=== PATIENT | male | born 1935 | race Caucasian/White ===

== ENCOUNTER 2017-10-07 12:57 | Inpatient (IN) ==
[2017-10-07 13:55] LABS: Basophils # (Auto) 0 K/mcL (0.0-0.3); Basophils % (Auto) 0.2 % (0.0-2.0); Eosinophils # (Auto) 0.1 K/mcL (0.0-0.7); Eosinophils % (Auto) 0.4 % (0.0-7.0); Granulocytes % (Auto) 90.9 % (38.0-78.0); Lymphocytes # (Auto) 0.5 K/mcL (1.5-4.8); Lymphocytes % (Auto) 2.5 % (15.5-49.0); Mean Cell Volume 94.6 fL (80.0-100.0); Mean Corpuscular HGB Conc 32.6 g/dL (31.0-36.0); Mean Corpuscular Hemoglobin 30.9 pg (26.0-34.0); Monocytes # (Auto) 1.3 K/mcL (0.1-0.9); Platelet Count 311 K/mcL (140-440); RBC 3.71 M/mcL (4.50-5.90); Red Cell Distribution Width 15.5 % (11.5-14.5)
--- NOTE | 2017-10-07 14:02 | XRay Report ---
HISTORY: Reason for Exam:dyspnea fever and cough FINDINGS: There is a large alveolar infiltrate throughout the right lung with the greatest consolidation in the basilar segments. Mildly prominent increased interstitial lung markings are seen in the left lung. The heart is severely enlarged. The pulmonary vessels, best seen in the left lung are normal in caliber. There may be a right-sided pleural effusion. The right lower lobe was densely consolidated on 03/13/17 but the alveolar infiltrates seen in the upper two thirds of the right lung on the current exam was not present previously. The heart is larger today than it was previously. IMPRESSION: Severe pneumonia in the right lung Severe cardiomegaly Interpreted and Authenticated by: Sunny Benítez 10/07/17
[2017-10-07 14:20] LABS: ALT/SGPT 6 U/l (0-40); Albumin 3.5 gm/dL (3.2-5.2); Albumin/Globulin Ratio 0.7 (1.0-2.3); Alkaline Phosphatase 105 U/L (39-117); Blood Urea Nitrogen 35 mg/dl (8-23)
[2017-10-07] MEDS ORDERED: AZITHROMYCIN 500 MG in DEXTROSE 5% IN WATER 250 ML IV ONE (14:27)
[2017-10-07] MEDS ORDERED: LEVOFLOXACIN 500 MG/100 ML BAG IV ONE (14:32)
--- NOTE | 2017-10-07 14:46 | Emergency Department Note ---
SOB HPI - General Chief Complaint: Shortness of Breath/Dyspnea Stated Complaint: Cough, Fever, weakness Time Seen by Provider: 10/07/17 13:08 Source: patient, family Mode of arrival: wheelchair Limitations: no limitations - History of Present Illness 82-year-old male presents with shortness of breath. The patient denies any shortness of breath or chest pain. The family states he has had a fever for 2- 3 days and is breathing faster than he should be and appears to be short of breath. Patient states he feels fine. Denies nausea, vomiting, or diarrhea. Family does report decreased appetite over the last few days and decreased energy level. The patient denies difficulty breathing but is obviously tachypneic. No chest pain or palpitations. No dizziness. No recent travel. No pedal edema. He does report a cough for the last week or so with greenish yellow sputum - Related Data Home Medications Medication Instructions Recorded Confirmed rvlqsqps-[id number] acid 0.4 1 tab PO .QD tab 11/23/15 03/07/17 mg-lycopene 300 mcg-lutein 250 mcg tablet Ferrous Sulfate 65 mg PO ONCE 03/07/17 03/07/17 Warfarin [Coumadin] 4 mg PO .COMPLEX 03/07/17 03/07/17 cloNIDine HCL [Catapres] 0.2 mg PO BID 03/07/17 03/07/17 Previous Rx's Medication Instructions Recorded furosemide 20 mg tablet 20 mg PO QDAY #60 tab 10/26/15 metoprolol succinate ER 50 mg 50 mg PO QDAY #60 tab 10/26/15 tablet,extended release 24 hr aclidinium bromide 400 400 mcg INHALATION BID #120 puff 11/01/15 mcg/actuation breath activated powder inhaler fluticasone 250 mcg-salmeterol 50 1 puff INHALATION BID #120 each 11/01/15 mcg/dose blistr powdr for inhalation lisinopril 5 mg tablet 2.5 mg PO QDAY #60 tab 12/09/15 oxybutynin chloride ER 5 mg 5 mg PO QDAY #60 tab 12/09/15 tablet,extended release 24 hr pravastatin 40 mg tablet 20 mg PO QHS #30 tab 12/09/15 Digoxin [Digitek] 62.5 mcg PO QDAY #30 tab 03/14/17 Ertapenem [Invanz] 1 gm IV Q24H #4 vial 03/14/17 Allergies Allergy/AdvReac Type Severity Reaction Status Date / Time No Known Drug Allergies Allergy Verified 10/07/17 13:01 Review of Systems All systems ED: reviewed and negative except as stated. Past Medical History - Past Medical History [facility] Narrative: Medical History Sepsis (Acute) Pneumonia (Acute) CHF (congestive heart failure) (Acute) Lactic acid acidosis (Acute) Acute kidney injury superimposed on chronic kidney disease (Acute) Chronic Kidney Disease (Chronic) History of ECG (Chronic 10/26/15) Anemia (Acute) Pneumonia (Acute) Septic shock (Acute) Atrial fibrillation (Acute) Diabetes mellitus, type II (Acute) Coronary atherosclerosis (Acute) Pulmonary embolism (Acute) Cardiomyopathy (Acute) TIA (transient ischemic attack) (Acute) Tobacco abuse (Acute) Tachycardia (Acute) Obstructive sleep apnea (Acute) Respiratory failure, chronic (Acute) Respiratory failure (Acute) Pulmonary collapse (Acute) Psychosis (Acute) Pleural effusion (Acute) Peripheral vascular disease (Acute) Paroxysmal supraventricular tachycardia (Acute) Osteoarthritis (Acute) Nocturia (Acute) snf current use of antibiotics (Acute) Hypertension, essential (Acute) Hyperlipidemia (Acute) Finger fracture (Acute) Erectile dysfunction (Acute) Encephalopathy (Acute) Diastolic heart failure (Acute) Congestive heart failure (Acute) Chronic obstructive pulmonary disease (Acute) Cachexia (Acute) Bladder outlet obstruction (Acute) Benign neoplasm (Acute) 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 (Acute) Alcohol withdrawal (Acute) Past Surgical History Status post arthroscopic surgery of right knee (Acute) History of aorto-femoral bypass (Acute) History of skin cancer (Acute) History of intraocular lens implant (Acute) History of tonsillectomy (Acute) History of inguinal hernia repair (Acute) Status post arthroscopic surgery of left knee (Acute) History of lower limb amputation (Acute) History of adenoidectomy (Acute) Medical history: Reports: coronary artery disease, dementia, other (bstructive sleep apnea) Surgical history ED: Reports: other (peripheral vascular bypass) - Social History smoking status: Current every day smoker Alcohol use: Reports: None Drug use: Reports: none Physical Exam Limitations: no limitations General appearance: alert, other (Speaks in full sentences. Mild to moderate tachypnea with a rate of around 35.) Head: atraumatic, normocephalic, normal inspection Eye: Present: normal appearance. Absent: conjunctival injection ENT: normal exam, normal oropharynx, mucous membranes moist, TM's normal bilaterally, normal external ear exam Neck: Present: normal inspection, trachea midline. Absent: tenderness, lymphadenopathy Chest: Present: normal inspection, symmetric chest wall rise Respiratory: Present: respiratory distress (Mild tachypnea.), wheezes (Wheezes to right base, inspiratory and expiratory. Lung sounds slightly diminished bases bilateral). Absent: accessory muscle use Cardiovascular: Present: irregular rhythm (a-fib), normal heart sounds Abdominal: Present: soft, hernia (Right abd). Absent: distention Extremities: Present: normal inspection. Absent: pedal edema Neurological: Present: alert, oriented X3 Psychiatric: Present: normal affect, normal mood Skin: Present: warm, dry, intact, normal color. Absent: rash, cyanosis, diaphoresis, erythema Course Vital Signs Temperature 98.9 F 10/07/17 12:57 Pulse Rate 119 H 10/07/17 12:57 Respiratory Rate 38 H 10/07/17 12:57 Blood Pressure 164/82 10/07/17 12:57 Pulse Oximetry (%) 92 10/07/17 12:57 Temperature 98.9 F 10/07/17 12:57 Pulse Rate 97 H 10/07/17 14:32 Respiratory Rate 31 H 10/07/17 14:32 Blood Pressure 121/93 10/07/17 14:30 Pulse Oximetry (%) 96 10/07/17 14:32 Shortness of Breath/Dyspnea - Lab Data Lab results reviewed: Yes I reviewed the patient's lab results. Result diagrams: 10/07/17 13:25 10/07/17 13:25 Lab Results 10/07/17 10/07/17 10/07/17 Range/Units 13:25 13:25 13:25 WBC 21.5 H (4.5-11.0) K/mcL RBC 3.71 L (4.50-5.90) M/mcL Hgb 11.5 L (13.5-16.5) g/dL Hct 35.1 L (41.0-55.0) % MCV 94.6 (80.0-100.0) fL MCH 30.9 (26.0-34.0) pg MCHC 32.6 (31.0-36.0) g/dL RDW 15.5 H (11.5-14.5) % Plt Count 311 (140-440) K/mcL MPV 8.8 (7.4-10.4) fL Gran % 90.9 H (38.0-78.0) % Lymph % (Auto) 2.5 L (15.5-49.0) % [place] % (Auto) 6.0 (1.0-12.0) % Eos % (Auto) 0.4 (0.0-7.0) % Baso % (Auto) 0.2 (0.0-2.0) % Gran # 19.6 H (1.8-8.0) K/mcL Lymph # (Auto) 0.5 L (1.5-4.8) K/mcL [place] # (Auto) 1.3 H (0.1-0.9) K/mcL Eos # (Auto) 0.1 (0.0-0.7) K/mcL Baso # (Auto) 0 (0.0-0.3) K/mcL D-Dimer 1.18 H (0.00-0.40) ug/ml VBG Lactic Acid (0.5-2.2) mmol/L Sodium 139 (133-145) mmol/L Potassium 4.5 (3.3-5.1) mmol/L Chloride 99 (96-108) mmol/L Carbon Dioxide 22 (22-30) mmol/L Anion Gap 18.0 H (8-16) BUN 35 H (8-23) mg/dl Creatinine 1.8 H (0.7-1.2) mg/dl GFR Calculation 34 Glucose 168 H (70-105) mg/dL Calcium 9.2 (8.6-10.4) mg/dl Total Bilirubin 0.9 (0.0-1.0) mg/dL AST 13 (0-37) U/l ALT 6 (0-40) U/l Alkaline Phosphatase 105 (39-117) U/L Troponin T (0-0.03) ng/ml NT-Pro-B Natriuret Pep 23435.0 H (0-450) pg/ml Total Protein 8.7 H (5.9-8.4) gm/dL Albumin 3.5 (3.2-5.2) gm/dL Globulin 5.2 H (2.2-3.7) gm/dL Albumin/Globulin Ratio 0.7 L (1.0-2.3) 10/07/17 10/07/17 Range/Units 13:25 13:25 WBC (4.5-11.0) K/mcL RBC (4.50-5.90) M/mcL Hgb (13.5-16.5) g/dL Hct (41.0-55.0) % MCV (80.0-100.0) fL MCH (26.0-34.0) pg MCHC (31.0-36.0) g/dL RDW (11.5-14.5) % Plt Count (140-440) K/mcL MPV (7.4-10.4) fL Gran % (38.0-78.0) % Lymph % (Auto) (15.5-49.0) % [place] % (Auto) (1.0-12.0) % Eos % (Auto) (0.0-7.0) % Baso % (Auto) (0.0-2.0) % Gran # (1.8-8.0) K/mcL Lymph # (Auto) (1.5-4.8) K/mcL [place] # (Auto) (0.1-0.9) K/mcL Eos # (Auto) (0.0-0.7) K/mcL Baso # (Auto) (0.0-0.3) K/mcL D-Dimer (0.00-0.40) ug/ml VBG Lactic Acid 2.0 (0.5-2.2) mmol/L Sodium (133-145) mmol/L Potassium (3.3-5.1) mmol/L Chloride (96-108) mmol/L Carbon Dioxide (22-30) mmol/L Anion Gap (8-16) BUN (8-23) mg/dl Creatinine (0.7-1.2) mg/dl GFR Calculation Glucose (70-105) mg/dL Calcium (8.6-10.4) mg/dl Total Bilirubin (0.0-1.0) mg/dL AST (0-37) U/l ALT (0-40) U/l Alkaline Phosphatase (39-117) U/L Troponin T 0.04 H* (0-0.03) ng/ml NT-Pro-B Natriuret Pep (0-450) pg/ml Total Protein (5.9-8.4) gm/dL Albumin (3.2-5.2) gm/dL Globulin (2.2-3.7) gm/dL Albumin/Globulin Ratio (1.0-2.3) - Radiology Data Radiology results reviewed: Yes I reviewed the patient's radiology results. Disposition Pt seen by INCOME TAX MANAGER/PA only: Yes Clinical Impression: Community acquired pneumonia Disposition: [facility] Condition: Fair Referrals: Sunny Nieves ARNP [Primary Care Provider] -
--- NOTE | 2017-10-07 15:24 | Internal Med History&Physical ---
Medical - H&P: HPI Patient information: Note initiated : 10/07/17 at 3:20 pm Patient: Tanvir Rubin 82 y/o M admitted on for Cough, Fever, Weakness. History of present illness: Mr. Rubin is a 82 year old M Mr. Rubin is a 82 year old male with PMH of PE, Afib, cardiomyopathy with CHF, right side pleural effusion, PVD, Chr anemia ,CKD who was seen here in March 2017 for right lower lobe pneumonia. He was reportedly discharged home with instructions for outpatient IV antibiotics, but his son says he refused to follow-up for that. He apparently eventually got better, and was in his usual state of health until a month or so ago, when he started to have a productive cough again. His son says he has been coughing up bloody sputum on and off for about 1 month, though the patient denies this. The patient's children have noticed that he has had increased respiratory rate for several days, and they thought he had a fever, and he seemed much more fatigued than usual, so they insisted he come in for evaluation. I believe the son tried to take him to the [facility] first and they sent him to the emergency room. In the ER, he was noted to be tachypneic with a white blood cell count of 21,000, heart rate of 35, chest x -ray showing diffuse right-sided pneumonia. The patient has known severe CHF as well, and is at high risk for complications. otherwise, the patient is quite forgetful. He denies feeling poorly or having any trouble with his breathing. His son notes that he continues to smoke up to a pack of cigarettes per day. He refuses to use oxygen, and has consistently refused to use inhalers at home. The patient denies headaches or dizziness, new eye or ear symptoms, sore throat, chest pain or palpitations, but he also denies cough and shortness of breath, which his son has witnessed. He denies GI or complaints. Medical History CHF (congestive heart failure) (Acute) Pneumonia (Acute) Sepsis (Acute) Acute kidney injury superimposed on chronic kidney disease (Acute) Alcohol withdrawal (Acute) Anemia (Acute) Atrial fibrillation (Acute) Bladder outlet obstruction (Acute) Chronic obstructive pulmonary disease (Acute) Congestive heart failure (Acute) Coronary atherosclerosis (Acute) Diabetes mellitus, type II (Acute) Encephalopathy (Acute) Hyperlipidemia (Acute) Hypertension, essential (Acute) Obstructive sleep apnea (Acute) Osteoarthritis (Acute) Paroxysmal supraventricular tachycardia (Acute) Peripheral vascular disease (Acute) Pleural effusion (Acute) Psychosis (Acute) Pulmonary embolism (Acute) TIA (transient ischemic attack) (Acute) Tobacco abuse (Acute) 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 (Acute) Chronic Kidney Disease (Chronic) Past Surgical History History of adenoidectomy (Acute),History of aorto-femoral bypass (Acute), History of inguinal hernia repair (Acute),History of intraocular lens implant ( Acute) History of lower limb amputation (Acute),History of skin cancer (Acute),History of tonsillectomy (Acute),Status post arthroscopic surgery of left knee (Acute) Status post arthroscopic surgery of right knee (Acute) Medication List Patient refuses to take: Aclidinium bromide 400 mcg/actuation breath activated powder inhaler 400 mcg clonidine HCl 0.1 mg tablet 0.1 mg PO BID digoxin 125 mcg tablet 125 mcg PO QDAY ferrous sulfate 325 mg (65 mg iron) tablet 65 mg (0.2 x 325 mg (65 mg iron)) PO TID Refuses to take: fluticasone-salmeterol 250 mcg-salmeterol 50 mcg/dose blistr powdr for inhalation 1 puff Inhalation BID furosemide 20 mg tablet 20 mg PO QDAY lisinopril 5 mg tablet 5 mg PO QDAY metoprolol succinate ER 50 mg tablet,extended release 24 hr 50 mg PO QDAY pksneqqk-qww-RV-lycopen-lutein 0.4 mg-lycopene 300 mcg-lutein 250 mcg tablet 1 tab PO .QD oxybutynin chloride ER 5 mg tablet,extended release 24 hr 5 mg PO QDAY pravastatin 40 mg tablet 40 mg PO QHS tamsulosin ER 0.4 mg capsule,extended release 24 hr 0.4 mg PO QDAY warfarin 5 mg tablet Take 6mg Sa, Sun, , , and 5mg on and . Allergies/Adverse Reactions No Known Drug Allergies Allergy (Verified 11/28/15 14:09) Family History mother , 96 Alzheimer's disease Unknown Asthma Essential hypertension Father , 74 Cardiovascular disease Social History The patient lives with his son, who is clearly also a smoker. The patient reportedly smokes up to 1 pack of cigarettes per day. He drinks about 1 beer per day. He does not use drugs. His daughter has his power of senior interactive developer. He states he would like to be a full code. Medical - H&P: Meds Home Medications Medication Instructions Recorded Confirmed Type Ferrous Sulfate 325 mg PO ONCE 03/07/17 10/07/17 History Warfarin [Coumadin] 4 mg PO .COMPLEX 03/07/17 10/07/17 History cloNIDine HCL [Catapres] 0.2 mg PO BID 03/07/17 10/07/17 History Digoxin [Digitek] 62.5 mcg PO QDAY #30 tab 03/14/17 10/07/17 Rx Lisinopril [Zestril] 5 mg PO QDAY 10/07/17 10/07/17 History Oxybutynin Chloride [Ditropan Xl] 5 mg PO TID 10/07/17 10/07/17 History Allergies Allergy/AdvReac Type Severity Reaction Status Date / Time No Known Drug Allergies Allergy Verified 10/07/17 13:01 Medical - H&P: Exam - Constitutional Vitals: Temp Pulse Resp BP Pulse Ox 98.9 F 99 H 26 H 136/87 93 10/07/17 12:57 10/07/17 15:15 10/07/17 15:15 10/07/17 15:15 10/07/17 15:15 Heart rate ranges from 54-119. Respiratory rate ranges from 20-38. O2 saturation is 92-94% on room air. Head: Normocephalic, atraumatic. Ears: TMs and canals are clear. Eyes: PERRLA, EOMI, anicteric. Neck: Appears supple, without obvious JVD, thyromegaly, bruits, lymphadenopathy. Cardiac exam: Shows an irregularly irregular rhythm with a rapid rate. No murmurs, rubs, gallops are noted. Lungs: He has decreased breath sounds at the right base, but otherwise diffuse wheezing and rhonchi throughout all lung lopez. He is quite tachypneic, but is otherwise not really in distress and denies feeling any distress. Abdomen: Is soft and nontender without obvious masses. Extremities: There is a right leg BKA, and he is wearing a prosthesis. Left lower extremity shows no significant edema. Pulses are decreased. Medical - H&P: Reslt - Labs CBC & Chem 7: 10/07/17 13:25 10/07/17 13:25 Labs: Short CBC 10/07/17 Range/Units 13:25 WBC 21.5 H (4.5-11.0) K/mcL Hgb 11.5 L (13.5-16.5) g/dL Hct 35.1 L (41.0-55.0) % Plt Count 311 (140-440) K/mcL BMP 10/07/17 13:25 Sodium 139 Potassium 4.5 Chloride 99 Carbon Dioxide 22 BUN 35 H Creatinine 1.8 H Glucose 168 H Calcium 9.2 Cardiac Enzymes 10/07/17 Range/Units 13:25 Troponin T 0.04 H* (0-0.03) ng/ml Liver Function 10/07/17 Range/Units 13:25 Total Bilirubin 0.9 (0.0-1.0) mg/dL AST 13 (0-37) U/l ALT 6 (0-40) U/l Alkaline Phosphatase 105 (39-117) U/L Albumin 3.5 (3.2-5.2) gm/dL October 07: CBC: White blood cell count is 21,500, hemoglobin 11.5, hematocrit 35, RDW 15. Differential shows 19,600 granulocytes, 500 lymphocytes 1300 monocytes Chemistry panel shows normal electrolytes, anion gap of 18, BUN of 35, creatinine 1.8, glucose 168 (baseline BUN and creatinine appear to be 42 and 1.4 ) ProBNP is elevated at 21,427 Total protein is elevated at 8.7, globulin high at 5.2 Troponin T is elevated at 0.04 Pro time is 25 with an INR of 2.2 D-dimer is elevated at 1.18 next Lactic acid is normal at 2.0 Chest x-ray:FINDINGS: There is a large alveolar infiltrate throughout the right lung with the greatest consolidation in the basilar segments. Mildly prominent increased interstitial lung markings are seen in the left lung. The heart is severely enlarged. The pulmonary vessels, best seen in the left lung are normal in caliber. There may be a right-sided pleural effusion. The right lower lobe was densely consolidated on 03/13/17 but the alveolar infiltrates seen in the upper two thirds of the right lung on the current exam was not present previously. The heart is larger today than it was previously. IMPRESSION: Severe pneumonia in the right lung. Severe cardiomegaly. EKG: Shows atrial fibrillation at a rate of about 120, left axis deviation, LVH , slight T-wave inversions noted in V4 through V6, no significant change from previous EKG. Echocardiogram, March 08, 2017: CONCLUSION: Severe biatrial enlargement. Moderate biventricular enlargement. Moderate to severe hypokinesis, ejection fraction 35%. Moderate pulmonary hypertension. -Mild aortic root dilatation. -Mixed aortic stenosis and aortic regurgitation , the former probably mild to moderate, the latter probably mild (1+). -Mild LV enlargement with moderate segmental systolic dysfunction. (See text). - Mitral regurgitation, probably mild (1+), with severe LA enlargement. -Moderate pulmonary hypertension with mild RV enlargement, severe RA enlargement , and raised CVP. -Since previous study 11/08/2015, right heart pressures calculate elevated. LV ejection fraction appears modestly higher. Medical - H&P: A/P (1) Community acquired pneumonia Current visit: No Status: Acute (2) Acute kidney injury superimposed on chronic kidney disease Current visit: No Status: Acute (3) Atrial fibrillation Problem details: [facility] Current visit: No Status: Chronic (4) CHF (congestive heart failure) Current visit: No Status: Chronic (5) Chronic obstructive pulmonary disease Current visit: No Status: Chronic (6) Diabetes mellitus, type II Current visit: No Status: Chronic (7) Tobacco abuse Problem details: 11/01/14 [facility] Current visit: No Status: Acute - Narrative A/P Narrative: #1. Infectious disease. Patient presents with dyspnea, tachypnea, leukocytosis, and x-ray consistent with right-sided pneumonia involving all lobes of the right lung. This patient is high risk for complications given his underlying severe congestive heart failure, coronary disease, COPD. -Admit to telemetry for close monitoring. -Cover empirically with Zosyn and Zithromax, to cover both community-acquired pneumonia as well as aspiration pneumonia. -Scheduled and as needed bronchodilators. Inhaled steroids. Pulmonary toilet. Oxygen as needed. -Blood and sputum cultures. -Follow-up chest x-rays. -Check baseline ABG. -Pulmonary consult if patient declines. 2. Pulmonary. History of COPD. -Nebulizers and oxygen, as noted above. 3. Cardiac. History of CHF and coronary artery disease. -Monitor volume status closely. Continue digoxin, clonidine, lisinopril, as able. -check digoxin level. Atrial fibrillation, chronic. -Continue warfarin, monitor closely. -The patient is supposed to be on metoprolol at home, his son seems a little unsure of which medicines he is actually taking, but hopefully is on both digoxin and metoprolol as these were prescribed at discharge for his last admission. -hypertension. Continue medications as tolerated. 4. CODE STATUS: Patient states he would like to be a full code. 5. DVT prophylaxis: Continue warfarin. Monitor per pharmacy. 6. Endocrine. Type 2 diabetes. Monitor Accu-Cheks, cover with sliding scale insulin. 7. Reported history of obstructive sleep apnea. It is doubtful that he would wear a CPAP mask, but I will try to confirm with his family. 8. Renal. Patient has known CKD, and presents with slightly elevated creatinine over baseline. I will try very gentle hydration to see if this improves, but we will definitely need to watch for CHF exacerbation. This visit took approximately 60 minutes, to review his case with the ER MD, review his old records and current test results, interview and examine him, and then review history with his son as well, and write orders.
[2017-10-07] MEDS ORDERED: 0.9 % SODIUM CHLORIDE 1,000 ML IV ONE (15:48)
[2017-10-07] MEDS ORDERED: ALBUTEROL SULFATE 2.5 MG/3 ML NEBULIZER NEB PRN (15:54)
[2017-10-07] MEDS ORDERED: PNEUMOCOCCAL 23-VAL P-SAC VAC 0.5 ML VIAL IM ONE (15:54)
[2017-10-07] MEDS ORDERED: DEXTROSE 31 GM ORAL.SUSP PO PRN (15:54)
[2017-10-07] MEDS ORDERED: DOCUSATE SODIUM 100 MG CAPSULE PO PRN (15:54)
[2017-10-07] MEDS ORDERED: DEXTROSE 50% 50 ML VIAL IV PRN (15:54)
[2017-10-07] MEDS ORDERED: ACETAMINOPHEN 325 MG TABLET PO PRN (15:54)
[2017-10-07] MEDS ORDERED: MAGNESIUM HYDROXIDE 30 ML ORAL.SUSP PO PRN (15:54)
[2017-10-07] MEDS ORDERED: ONDANSETRON 4 MG/2 ML VIAL IV PRN (15:54)
[2017-10-07] MEDS: 0.45 % SODIUM CHLORIDE 1,000 ML IV SCH (17:05)
[2017-10-07] MEDS: AZITHROMYCIN 500 MG in DEXTROSE 5% IN WATER 250 ML IV SCH (17:05)
[2017-10-07] MEDS ORDERED: METOPROLOL TARTRATE 5 MG/5 ML VIAL IV PRN (17:21)
[2017-10-07] MEDS ORDERED: METOPROLOL TARTRATE 5 MG/5 ML VIAL IV ONE (17:30)
[2017-10-07] MEDS: INSULIN LISPRO 1 UNIT/0.01 ML UNIT SQ SCH ×2 (17:41→21:03)
[2017-10-07] MEDS: DIGOXIN 125 MCG TABLET PO SCH (18:50)
[2017-10-07] MEDS: BUDESONIDE 0.5 MG/2 ML AMPUL.NEB NEB SCH ×2 (19:09→19:39)
[2017-10-07] MEDS: IPRATROPIUM/ALBUTEROL 3 ML AMPUL.NEB NEB SCH ×2 (19:09→19:39)
[2017-10-07] MEDS: PIPERACILLIN SODIUM/TAZOBACTAM 3.375 GM in DEXTROSE 5% IN WATER 50 ML IV SCH (19:29)
[2017-10-07] MEDS ORDERED: WARFARIN 5 MG TABLET PO SCH (20:00)
[2017-10-07] MEDS: OXYBUTYNIN CHLORIDE 5 MG TAB.XL.24H PO SCH (20:58)
[2017-10-08] MEDS: PIPERACILLIN SODIUM/TAZOBACTAM 3.375 GM in DEXTROSE 5% IN WATER 50 ML IV SCH ×4 (00:05→17:32)
[2017-10-08] MEDS: IPRATROPIUM/ALBUTEROL 3 ML AMPUL.NEB NEB SCH ×4 (00:12→19:13)
[2017-10-08 05:00] LABS: Basophils # (Auto) 0 K/mcL (0.0-0.3); Basophils % (Auto) 0.4 % (0.0-2.0); Eosinophils # (Auto) 0.1 K/mcL (0.0-0.7); Eosinophils % (Auto) 0.6 % (0.0-7.0); Granulocytes % (Auto) 75.1 % (38.0-78.0); Lymphocytes # (Auto) 0.9 K/mcL (1.5-4.8); Lymphocytes % (Auto) 10.1 % (15.5-49.0); Mean Cell Volume 93.7 fL (80.0-100.0); Mean Corpuscular HGB Conc 32.7 g/dL (31.0-36.0); Mean Corpuscular Hemoglobin 30.6 pg (26.0-34.0); Monocytes # (Auto) 1.3 K/mcL (0.1-0.9); Monocytes % (Auto) 13.8 % (1.0-12.0); Platelet Count 211 K/mcL (140-440); RBC 2.66 M/mcL (4.50-5.90); Red Cell Distribution Width 14.6 % (11.5-14.5)
[2017-10-08 05:48] LABS: ALT/SGPT 5 U/l (0-40); Albumin 2.3 gm/dL (3.2-5.2); Albumin/Globulin Ratio 0.7 (1.0-2.3); Alkaline Phosphatase 67 U/L (39-117); Bilirubin,Direct 0.2 mg/dL (0.0-0.3); Blood Urea Nitrogen 29 mg/dl (8-23); Gamma Glutamyl Transpeptidase 10 U/L (8-61); Magnesium 1.3 mg/dL (1.6-2.5); Uric Acid 5.4 mg/dL (2.5-8.0)
[2017-10-08] MEDS: BUDESONIDE 0.5 MG/2 ML AMPUL.NEB NEB SCH ×2 (07:28→19:13)
[2017-10-08] MEDS: INSULIN LISPRO 1 UNIT/0.01 ML UNIT SQ SCH ×4 (07:42→20:45)
[2017-10-08] MEDS ORDERED: POTASSIUM CHLORIDE 20 MEQ TABLET PO ONE (08:06)
[2017-10-08] MEDS ORDERED: guaiFENesin 600 MG TAB.SR.12H PO PRN (08:11)
--- NOTE | 2017-10-08 08:13 | XRay Report ---
HISTORY: Reason for Exam:follow up pneumonia FINDINGS: There is a large generalized infiltrate throughout the right lung. The greatest consolidation is at the lung base. Superimposed is a small right-sided pleural effusion. The consolidation in the mid and upper two thirds of the lung has improved since yesterday. There are stable increased interstitial lung markings throughout the left lung. This is partially due to underlying emphysema and pulmonary fibrosis. The heart remains severely enlarged but has diminished in size. IMPRESSION: Improving pneumonia in the right lung and improved cardiomegaly Interpreted and Authenticated by: Sunny Benítez 10/08/17
[2017-10-08] MEDS: DIGOXIN 125 MCG TABLET PO SCH (09:06)
[2017-10-08] MEDS: FINASTERIDE 5 MG TABLET PO SCH (09:06)
[2017-10-08] MEDS: OXYBUTYNIN CHLORIDE 5 MG TAB.XL.24H PO SCH ×3 (09:06→20:44)
[2017-10-08] MEDS: CETIRIZINE 10 MG TABLET PO SCH (09:08)
[2017-10-08] MEDS: FERROUS SULFATE 325 MG TABLET PO SCH (09:08)
[2017-10-08] MEDS: METOPROLOL TARTRATE 50 MG TABLET PO SCH (09:08)
[2017-10-08] MEDS: cloNIDine HCL 0.1 MG TABLET PO SCH ×2 (09:08→20:45)
[2017-10-08] MEDS: MULTIVIT,THER IRON,CA,FA & MIN 1 TABLET PO SCH (09:08)
[2017-10-08] MEDS: AZITHROMYCIN 500 MG in DEXTROSE 5% IN WATER 250 ML IV SCH (09:43)
--- NOTE | 2017-10-08 11:00 | Internal Med Progress Note ---
Medical - PN: Subj Patient information: Note initiated : 10/08/17 at 10:59 am Service Date, if different from initiated Date: [] Patient: Tanvir Rubin 82 y/o M admitted on 10/07/17 for Cough, Fever, Weakness /Pneumonia. Chief Complaint: [] Interval history: October 07, 2017: History of present illness: Mr. Rubin is a 82 year old M Mr. Rubin is a 82 year old male with PMH of PE, Afib, cardiomyopathy with CHF, right side pleural effusion, PVD, Chr anemia ,CKD who was seen here in March 2017 for right lower lobe pneumonia. He was reportedly discharged home with instructions for outpatient IV antibiotics, but his son says he refused to follow-up for that. He apparently eventually got better, and was in his usual state of health until a month or so ago, when he started to have a productive cough again. His son says he has been coughing up bloody sputum on and off for about 1 month, though the patient denies this. The patient's children have noticed that he has had increased respiratory rate for several days, and they thought he had a fever, and he seemed much more fatigued than usual, so they insisted he come in for evaluation. I believe the son tried to take him to the [facility] first and they sent him to the emergency room. In the ER, he was noted to be tachypneic with a white blood cell count of 21,000, heart rate of 35, chest x -ray showing diffuse right-sided pneumonia. The patient has known severe CHF as well, and is at high risk for complications. otherwise, the patient is quite forgetful. He denies feeling poorly or having any trouble with his breathing. His son notes that he continues to smoke up to a pack of cigarettes per day. He refuses to use oxygen, and has consistently refused to use inhalers at home. The patient denies headaches or dizziness, new eye or ear symptoms, sore throat, chest pain or palpitations, but he also denies cough and shortness of breath, which his son has witnessed. He denies GI or complaints. October 08: Today, the patient says he is feeling better. He continues to deny fever or cough, although the nurses say he is having a cough productive of bloody sputum. His room air O2 saturations have been fine. He denies shortness of breath. Labs today show low sodium, potassium, serum bicarb. Renal function looks somewhat improved after IV fluids. The patient otherwise denies fever chills, headaches or dizziness, chest pain or shortness of breath, abdominal pain, nausea vomiting, diarrhea or constipation, dysuria. - Constitutional Vitals: Vital Signs Temp Pulse Resp BP Pulse Ox 98.4 F 88 16 177/93 97 10/08/17 08:00 10/08/17 08:00 10/08/17 08:00 10/08/17 04:00 10/08/17 08:00 Period Temp Pulse Resp BP Sys/Sherman Pulse Ox Last 24 Hr 98.4 F-100.3 F 54-119 16-38 105-190/72-93 90-98 Intake and Output 10/07/17 10/08/17 10/08/17 21:59 05:59 13:59 Intake Total 1916 / 1916 410 / 410 320 / 320 Output Total 151 / 151 150 / 150 Balance 1766 / 1766 260 / 260 320 / 320 Weight 153 lb Intake & Output: Intake & Output 10/07/17 10/08/17 10/08/17 21:59 05:59 13:59 Intake Total 1916 / 191 410 / 410 320 / 320 Output Total 151 / 151 150 / 150 Balance 1766 / 1766 260 / 260 320 / 320 Weight 153 lb Intake: IV 1377 / 1377 50 / 50 Sodium Chloride 0.9% 1,000 ml @ 1000 / 1000 Wide Open IV [facility] Rx#: [id number] Zithromax 500 mg In Dextrose 5% 250 / 250 in Water 250 ml @ 250 mls/hr IV DAILY [facility] Rx#:[id number] Zosyn 3.375 gm In Dextrose 5% 50 / 50 50 / 50 in Water 50 ml @ 100 mls/hr IV Q6H [facility] Rx#:[id number] Oral 540 / 540 360 / 360 320 / 320 Output: Void Amount 150 / 150 150 / 150 # of times incontinent of urine 1 Other: Meal Breakfast Percent of Meal Consumed 100% Feeding Ability Independent # Bowel Movements 1 1 On exam, he is awake and alert, but remains very forgetful. Neck is supple without obvious lymphadenopathy or JVD. Cardiac exam shows an irregularly irregular rhythm. Lung exam shows decreased breath sounds at the right base and the remainder of the lung lopez are somewhat coarse. Abdomen is soft and nontender. Lower extremities show no edema. Medical - PN: Obj Da - Labs CBC & Chem 7: 10/08/17 03:43 10/08/17 03:43 Labs: Abnormal Lab Results 10/08/17 10/08/17 10/08/17 07:08 03:43 03:43 WBC RBC 2.66 L Hgb 8.2 L Hct 25.0 L RDW 14.6 H Gran % Lymph % (Auto) 10.1 L [place] % (Auto) 13.8 H Gran # Lymph # (Auto) 0.9 L [place] # (Auto) 1.3 H PT 26.0 H INR 2.3 H D-Dimer Sodium 127 L Potassium 3.0 L Carbon Dioxide 19 L Anion Gap BUN 29 H Creatinine 1.4 H Glucose 119 H Calcium 6.4 L Phosphorus 1.5 L Magnesium 1.3 L Troponin T NT-Pro-B Natriuret Pep Total Protein 5.6 L Albumin 2.3 L Globulin Albumin/Globulin Ratio 0.7 L 10/07/17 10/07/17 10/07/17 14:33 13:25 13:25 WBC RBC Hgb Hct RDW Gran % Lymph % (Auto) [place] % (Auto) Gran # Lymph # (Auto) [place] # (Auto) PT 25.3 H INR 2.2 H D-Dimer 1.18 H Sodium Potassium Carbon Dioxide Anion Gap BUN Creatinine Glucose Calcium Phosphorus Magnesium Troponin T 0.04 H* NT-Pro-B Natriuret Pep Total Protein Albumin Globulin Albumin/Globulin Ratio 10/07/17 10/07/17 13:25 13:25 WBC 21.5 H RBC 3.71 L Hgb 11.5 L Hct 35.1 L RDW 15.5 H Gran % 90.9 H Lymph % (Auto) 2.5 L [place] % (Auto) Gran # 19.6 H Lymph # (Auto) 0.5 L [place] # (Auto) 1.3 H PT INR D-Dimer Sodium Potassium Carbon Dioxide Anion Gap 18.0 H BUN 35 H Creatinine 1.8 H Glucose 168 H Calcium Phosphorus Magnesium Troponin T NT-Pro-B Natriuret Pep 41801.0 H Total Protein 8.7 H Albumin Globulin 5.2 H Albumin/Globulin Ratio 0.7 L October 08: Follow-up chest x-ray: There is still a large generalized infiltrate throughout the right lung with greatest consolidation at the base. However the mid and upper lung infiltrates are improved since yesterday. There is probably underlying emphysema and pulmonary fibrosis. The heart remains severely enlarged. October 07: ABG: PH is 7.46, PCO2 34, PO2 80, bicarb 24, O2 saturation 96% (I believe this was on room air) Sputum Gram stain shows many polys, many intra-and extra of pharyngeal organisms. No pathogens isolated so far. CBC: White blood cell count is 21,500, hemoglobin 11.5, hematocrit 35, RDW 15. Differential shows 19,600 granulocytes, 500 lymphocytes 1300 monocytes Chemistry panel shows normal electrolytes, anion gap of 18, BUN of 35, creatinine 1.8, glucose 168 (baseline BUN and creatinine appear to be 42 and 1.4 ) ProBNP is elevated at 21,427 Total protein is elevated at 8.7, globulin high at 5.2 Troponin T is elevated at 0.04 Pro time is 25 with an INR of 2.2 D-dimer is elevated at 1.18 next Lactic acid is normal at 2.0 Chest x-ray:FINDINGS: There is a large alveolar infiltrate throughout the right lung with the greatest consolidation in the basilar segments. Mildly prominent increased interstitial lung markings are seen in the left lung. The heart is severely enlarged. The pulmonary vessels, best seen in the left lung are normal in caliber. There may be a right-sided pleural effusion. The right lower lobe was densely consolidated on 03/13/17 but the alveolar infiltrates seen in the upper two thirds of the right lung on the current exam was not present previously. The heart is larger today than it was previously. IMPRESSION: Severe pneumonia in the right lung. Severe cardiomegaly. EKG: Shows atrial fibrillation at a rate of about 120, left axis deviation, LVH , slight T-wave inversions noted in V4 through V6, no significant change from previous EKG. Echocardiogram, March 08, 2017: CONCLUSION: Severe biatrial enlargement. Moderate biventricular enlargement. Moderate to severe hypokinesis, ejection fraction 35%. Moderate pulmonary hypertension. -Mild aortic root dilatation. -Mixed aortic stenosis and aortic regurgitation , the former probably mild to moderate, the latter probably mild (1+). -Mild LV enlargement with moderate segmental systolic dysfunction. (See text). - Mitral regurgitation, probably mild (1+), with severe LA enlargement. -Moderate pulmonary hypertension with mild RV enlargement, severe RA enlargement , and raised CVP. -Since previous study 11/08/2015, right heart pressures calculate elevated. LV ejection fraction appears modestly higher. Meds: Medications Acetaminophen (Tylenol) 650 mg PO Q6HP PRN PRN Reason: PAIN/FEVER > 101 Albuterol Sulfate (Ventolin) 2.5 mg NEB Q4HRT PRN PRN Reason: Shortness Of Breath Or Wheezing Albuterol/Ipratropium (Duoneb) 3 ml NEB Q6HRT [facility] Last Admin: 10/08/17 07:28 Dose: 3 ml Budesonide (Pulmicort) 0.5 mg NEB Q12 [facility] Last Admin: 10/08/17 07:28 Dose: 0.5 mg Cetirizine HCl (Zyrtec) 10 mg PO DAILY [facility] Last Admin: 10/08/17 09:08 Dose: 10 mg Clonidine HCl (Catapres) 0.2 mg PO BID [facility] Last Admin: 10/08/17 09:08 Dose: 0.2 mg Dextrose (Dextrose 50%) 0 ml IV UD PRN PRN Reason: Hypoglycemia Diagnostic Test (Pha) (Accu-Chek) 1 each FS ACHS [facility] Last Admin: 10/08/17 07:42 Dose: 1 each Digoxin (Lanoxin) 62.5 mcg PO DAILY [facility] Last Admin: 10/08/17 09:06 Dose: 62.5 mcg Docusate Sodium (Colace) 100 mg PO BID PRN PRN Reason: Constipation Ferrous Sulfate (Ferrous Sulfate) 325 mg PO QAMCC [facility] Last Admin: 10/08/17 09:08 Dose: 325 mg Finasteride (Proscar) 5 mg PO DAILY [facility] Last Admin: 10/08/17 09:06 Dose: 5 mg Glucose (Insta-Glucose) 15 gm PO PRN PRN PRN Reason: Hypoglycemia Guaifenesin (Mucinex) 600 mg PO TIDP PRN PRN Reason: Cough Azithromycin 500 mg/ Dextrose 250 mls @ 250 mls/hr IV DAILY [facility] Stop: 10/09/17 09:59 Last Admin: 10/08/17 09:43 Dose: 250 mls/hr Piperacillin Sod/Tazobactam (Sod 3.375 gm/ Dextrose) 50 mls @ 100 mls/hr IV Q6H [facility] Last Admin: 10/08/17 05:47 Dose: 100 mls/hr Sodium Chloride (Sodium Chloride 0.45%) 1,000 mls @ 50 mls/hr IV .Q20H [facility] Stop: 10/09/17 07:53 Last Admin: 10/07/17 17:05 Dose: 50 mls/hr Insulin Human Lispro (Humalog) 0 unit SQ ACHS [facility] PRN Reason: Protocol Last Admin: 10/08/17 07:42 Dose: Not Given Iron Carb/Multivit/Clarke/Folic Acid (Multivitamin W/Minerals) 1 tab PO DAILY [facility] Last Admin: 10/08/17 09:08 Dose: 1 tab Magnesium Hydroxide (Milk Of Magnesia) 30 ml PO DAILYP PRN PRN Reason: Constipation Metoprolol Tartrate (Lopressor) 5 mg IV Q4HP PRN PRN Reason: Tachyarrhythmias Metoprolol Tartrate (Lopressor) 50 mg PO DAILY [facility] Last Admin: 10/08/17 09:08 Dose: 50 mg Ondansetron HCl (Zofran) 4 mg IV Q4HP PRN PRN Reason: Nausea And Vomiting Oxybutynin Chloride (Ditropan Xl) 5 mg PO TID [facility] Last Admin: 10/08/17 09:06 Dose: 5 mg Potassium Chloride (Kdur) 20 meq PO QAMCC [facility] Simvastatin (Zocor) 20 mg PO HS [facility] Warfarin Sodium (Coumadin Per Pharmacy) 1 order PO UD [facility] Warfarin Sodium (Coumadin) 5 mg PO ONCE@1400 ONE Stop: 10/08/17 14:01 Medical - PN: A/P - Time Spent With Patient Total time spent is greater than 50% in coordination of care (as documented) at patient's floor/unit and/or counseling patient: 25 - 35 minutes (1) Community acquired pneumonia Status: Acute Current Visit: No (2) Acute kidney injury superimposed on chronic kidney disease Status: Acute Current Visit: No (3) Atrial fibrillation Problem details: 11/01/2014 [place] Status: Chronic Current Visit: No (4) CHF (congestive heart failure) Status: Chronic Current Visit: No (5) Chronic obstructive pulmonary disease Status: Chronic Current Visit: No (6) Diabetes mellitus, type II Status: Chronic Current Visit: No (7) Tobacco abuse Problem details: 11/01/14 [place] Status: Acute Current Visit: No - Narrative A/P Narrative: #1. Infectious disease. Patient presents with dyspnea, tachypnea, leukocytosis, and x-ray consistent with right-sided pneumonia involving all lobes of the right lung. This patient is high risk for complications given his underlying severe congestive heart failure, coronary disease, COPD. -Admitted to telemetry for close monitoring. He has actually done quite well overnight. -He is on empiric Zosyn and Zithromax, and chest x-ray actually looks improved today. The patient continues to deny significant symptoms, although the nurses are seeing him cough up bloody sputum. -Scheduled and as needed bronchodilators. Inhaled steroids. Pulmonary toilet. Oxygen as needed. -Blood and sputum cultures. -Pulmonary consult if patient declines. 2. Pulmonary. History of COPD. -Nebulizers and oxygen, as noted above. -The patient continues to want to smoke cigarettes. In general he declines using inhaled medications or oxygen. 3. Cardiac. History of CHF and coronary artery disease. -Monitor volume status closely. Continue digoxin, clonidine, lisinopril, as able. -check digoxin level. Atrial fibrillation, chronic. -Continue warfarin, monitor closely. INR is therapeutic today. -The patient is supposed to be on metoprolol at home, his son seems a little unsure of which medicines he is actually taking, but hopefully is on both digoxin and metoprolol as these were prescribed at discharge for his last admission. -hypertension. Continue medications as tolerated. 4. CODE STATUS: Patient states he would like to be a full code. 5. DVT prophylaxis: Continue warfarin. Monitor per pharmacy. 6. Endocrine. Type 2 diabetes. Monitor Accu-Cheks, cover with sliding scale insulin. Accu-Cheks are currently ranging from 120-158 7. Reported history of obstructive sleep apnea. It is doubtful that he would wear a CPAP mask, but I will try to confirm with his family. 8. Renal. Patient has known CKD, and presents with slightly elevated creatinine over baseline. BUN and creatinine are mildly improved today and are approaching baseline. He is receiving very low-dose IV fluids, regarding his history of CHF. Sodium and potassium have dropped a bit today. Potassium will be replaced. Medical - PN: Qual - VTE Deep Vein Thrombosis/Pulmonary Embolism Present on Admission: No
[2017-10-08] MEDS ORDERED: MAGNESIUM SULFATE 2 GM/50 ML BAG IV ONE (12:43)
[2017-10-08] MEDS: 0.45 % SODIUM CHLORIDE 1,000 ML IV SCH (13:26)
[2017-10-08] MEDS ORDERED: WARFARIN 5 MG TABLET PO ONE (14:00)
[2017-10-08] MEDS ORDERED: SIMVASTATIN 20 MG TABLET PO SCH (21:00)
[2017-10-09] MEDS: PIPERACILLIN SODIUM/TAZOBACTAM 3.375 GM in DEXTROSE 5% IN WATER 50 ML IV SCH ×4 (00:10→17:05)
[2017-10-09] MEDS: IPRATROPIUM/ALBUTEROL 3 ML AMPUL.NEB NEB SCH ×3 (00:18→13:29)
[2017-10-09 05:27] LABS: Basophils # (Auto) 0 K/mcL (0.0-0.3); Basophils % (Auto) 0.2 % (0.0-2.0); Eosinophils # (Auto) 0.1 K/mcL (0.0-0.7); Eosinophils % (Auto) 1.4 % (0.0-7.0); Granulocytes % (Auto) 73.4 % (38.0-78.0); Lymphocytes # (Auto) 0.9 K/mcL (1.5-4.8); Lymphocytes % (Auto) 11.9 % (15.5-49.0); Mean Corpuscular HGB Conc 32.3 g/dL (31.0-36.0); Mean Corpuscular Hemoglobin 30.7 pg (26.0-34.0); Monocytes % (Auto) 13.1 % (1.0-12.0); Platelet Count 194 K/mcL (140-440); RBC 2.66 M/mcL (4.50-5.90); Red Cell Distribution Width 15.4 % (11.5-14.5)
[2017-10-09 06:00] LABS: ALT/SGPT < 5 U/l (0-40); Albumin 2.5 gm/dL (3.2-5.2); Albumin/Globulin Ratio 0.7 (1.0-2.3); Alkaline Phosphatase 62 U/L (39-117); Bilirubin,Direct < 0.2 mg/dL (0.0-0.3); Blood Urea Nitrogen 36 mg/dl (8-23); Gamma Glutamyl Transpeptidase 9 U/L (8-61); Magnesium 2.1 mg/dL (1.6-2.5); Uric Acid 5.1 mg/dL (2.5-8.0)
[2017-10-09] MEDS: BUDESONIDE 0.5 MG/2 ML AMPUL.NEB NEB SCH (07:07)
[2017-10-09] MEDS: INSULIN LISPRO 1 UNIT/0.01 ML UNIT SQ SCH ×3 (07:27→17:04)
[2017-10-09] MEDS ORDERED: POTASSIUM CHLORIDE 20 MEQ TABLET PO SCH (08:00)
[2017-10-09] MEDS ORDERED: POTASSIUM CHLORIDE 20 MEQ PACKET PO SCH (08:00)
--- NOTE | 2017-10-09 08:31 | XRay Report ---
HISTORY: Reason for Exam:f/u pna FINDINGS: There is a severe generalized alveolar infiltrate throughout the right lung with the greatest consolidation in the right middle and lower lobes. The pneumonia has become worse since 10/08/17. There may be superimposed small right-sided pleural effusion. Pulmonary fibrosis is present in the left lung but there is no consolidating infiltrate or left-sided effusion. The heart is severely enlarged and unchanged. IMPRESSION: Worsening right-sided pneumonia Interpreted and Authenticated by: Sunny Benítez 10/09/17
[2017-10-09] MEDS: FINASTERIDE 5 MG TABLET PO SCH (08:58)
[2017-10-09] MEDS: DIGOXIN 125 MCG TABLET PO SCH (09:06)
[2017-10-09] MEDS: FERROUS SULFATE 325 MG TABLET PO SCH (09:06)
[2017-10-09] MEDS: OXYBUTYNIN CHLORIDE 5 MG TAB.XL.24H PO SCH ×2 (09:06→14:33)
[2017-10-09] MEDS: CETIRIZINE 10 MG TABLET PO SCH (09:06)
[2017-10-09] MEDS: METOPROLOL TARTRATE 50 MG TABLET PO SCH (09:07)
[2017-10-09] MEDS: cloNIDine HCL 0.1 MG TABLET PO SCH (09:08)
[2017-10-09] MEDS: MULTIVIT,THER IRON,CA,FA & MIN 1 TABLET PO SCH (09:08)
[2017-10-09] MEDS: AZITHROMYCIN 500 MG in DEXTROSE 5% IN WATER 250 ML IV SCH (09:11)
--- NOTE | 2017-10-09 12:02 | Discharge Summary ---
Medical - DS: Prov Patient information: Note initiated : 10/09/17 at 12:02 pm Patient: Tanvir Rubin 82 y/o M admitted on 10/07/17 for Cough, Fever, Weakness /Pneumonia. Date of admission: 10/07/17 15:37 Discharge date: 10/09/17 Primary care physician: Sunny Nieves Admitting clinician: Bryanna Pollard Consults: 10/07/17 15:11 Consult to Physician [CONS] Stat Comment: Consulting Provider: Bryanna Pollard Reason For Exam: Physician to Consult Attending physician on discharge: Bryanna Pollard Medical - DS: Meds - Discharge Medications Prescriptions: Amoxicillin/Potassium Clav [Augmentin] 875 mg PO Q12H #14 tab Ipratropium/Albuterol Sulfate [Combivent] 2 puff INH QID #1 inhaler Metoprolol Succinate [Toprol Xl] 50 mg PO DAILY #30 tab.xl.24h Potassium Chloride [Kdur] 10 meq PO [facility] #30 tab Active and Home Medications: Discharge medications: Warfarin 4 mg each evening. Please have pro time/INR rechecked in 2 days, as this may change with new medications. Augmentin 875 mg p.o. twice daily, 1 week, for pneumonia Combivent inhaler (or Respimat) 2 puffs 4 times daily, for COPD Cetirizine 10 mg daily as needed allergies Clonidine 0.2 mg twice daily for hypertension Digoxin 62.5 mcg p.o. daily Iron sulfate 325 mg daily Finasteride 5 mg daily Guaifenesin 600 mg 3 times daily as needed thick secretions Multivitamin with minerals daily Metoprolol succinate 50 mg p.o. daily this was changed to the long-acting, once a day, form -please stop metoprolol tartrate Oxybutynin 5 mg p.o. 3 times daily Potassium chloride 10 mEq p.o. daily for low potassium Pravastatin 40 mg p.o. nightly Please stop: Lasix 20 mg, as you were dehydrated on admission Lisinopril 5 mg, as you came in with kidney dysfunction Please verify these with your primary care physician at follow-up. Previous home Medications: Ferrous Sulfate 325 mg PO ONCE 03/07/17 [History Confirmed 10/07/17 Last Taken Unknown] cloNIDine HCL [Catapres] 0.2 mg PO BID 03/07/17 [History Confirmed 10/07/17 Last Taken Unknown] Digoxin [Digitek] 62.5 mcg PO QDAY #30 tab 03/14/17 [Rx Confirmed 10/07/17 Last Taken Unknown] Cetirizine HCl [All Day Allergy] 10 mg PO DAILY 10/07/17 [History Confirmed 02/18 Last Taken Unknown] Finasteride [Proscar] 5 mg PO DAILY 10/07/17 [History Confirmed 10/07/17 Last Taken Unknown] Furosemide [Lasix] 20 mg PO DAILY 10/07/17 [History Confirmed 10/07/17 Last Taken Unknown] Lisinopril [Zestril] 5 mg PO QDAY 10/07/17 [History Confirmed 10/07/17 Last Taken Unknown] Metoprolol Tartrate [Lopressor] 50 mg PO DAILY 10/07/17 [History Confirmed 10/07 Last Taken Unknown] Multivit-Min/FA/Lycopen/Lutein [Adults 50+ Multivitamin Tablet] 1 each PO DAILY 10/07/17 [History Confirmed 10/07/17 Last Taken Unknown] Oxybutynin Chloride [Ditropan Xl] 5 mg PO TID 10/07/17 [History Confirmed Last Taken Unknown] Pravastatin [Pravachol] 40 mg PO HS 10/07/17 [History Confirmed 10/07/17 Last Taken Unknown] Warfarin Sodium [Jantoven] 4 mg PO DAILY 10/07/17 [History Confirmed 10/07/17 Last Taken Unknown] guaiFENesin [Guaifenesin] 600 mg PO TIDP PRN 10/07/17 [History Confirmed Last Taken Unknown] Medical - DS: Hosp Hospital course: Mr. Rubin is a 82 year old M October 07, 2017: History of present illness: Mr. Rubin is a 82 year old M Mr. Rubin is a 82 year old male with PMH of PE, Afib, cardiomyopathy with CHF, right side pleural effusion, PVD, Chr anemia ,CKD who was seen here in March 2017 for right lower lobe pneumonia. He was reportedly discharged home with instructions for outpatient IV antibiotics, but his son says he refused to follow-up for that. He apparently eventually got better, and was in his usual state of health until a month or so ago, when he started to have a productive cough again. His son says he has been coughing up bloody sputum on and off for about 1 month, though the patient denies this. The patient's children have noticed that he has had increased respiratory rate for several days, and they thought he had a fever, and he seemed much more fatigued than usual, so they insisted he come in for evaluation. I believe the son tried to take him to the ID first and they sent him to the emergency room. In the ER, he was noted to be tachypneic with a white blood cell count of 21,000, heart rate of 35, chest x -ray showing diffuse right-sided pneumonia. The patient has known severe CHF as well, and is at high risk for complications. otherwise, the patient is quite forgetful. He denies feeling poorly or having any trouble with his breathing. His son notes that he continues to smoke up to a pack of cigarettes per day. He refuses to use oxygen, and has consistently refused to use inhalers at home. The patient denies headaches or dizziness, new eye or ear symptoms, sore throat, chest pain or palpitations, but he also denies cough and shortness of breath, which his son has witnessed. He denies GI or complaints. October 08: Today, the patient says he is feeling better. He continues to deny fever or cough, although the nurses say he is having a cough productive of bloody sputum. His room air O2 saturations have been fine. He denies shortness of breath. Labs today show low sodium, potassium, serum bicarb. Renal function looks somewhat improved after IV fluids. The patient otherwise denies fever chills, headaches or dizziness, chest pain or shortness of breath, abdominal pain, nausea vomiting, diarrhea or constipation, dysuria. October 09: The patient continued to deny significant symptoms today. He denies fever chills, chest pain or cough. However, nurses note he is still coughing up yellowish phlegm with red streaks. He is quite insistent on going home, and says he feels like he will do fine. We arranged for his discharge, and right before discharge, he did develop some mild dyspnea and fever. He was given a DuoNeb treatment and Tylenol. I asked him to have the nurses call me when his family arrived, so that we could discuss whether or not he should perhaps stay another night, but as soon as they got here he insisted on leaving with them. On exam, he is awake and alert, but remains very forgetful. Neck is supple without obvious lymphadenopathy or JVD. Cardiac exam shows an irregularly irregular rhythm. Lung exam shows decreased breath sounds at the right base and the remainder of the lung lopez are somewhat coarse. Abdomen is soft and nontender. Lower extremities show no edema. A/P Narrative: #1. Infectious disease. Patient presents with dyspnea, tachypnea, leukocytosis, and x-ray consistent with right-sided pneumonia involving all lobes of the right lung. This patient is high risk for complications given his underlying severe congestive heart failure, coronary disease, COPD. -Admitted to telemetry for close monitoring. He has actually done quite well overnight. White blood cell count dropped back down to normal by the day after admission . -He is on empiric Zosyn and Zithromax, and chest x-ray actually looks improved today. The patient continues to deny significant symptoms, although the nurses are seeing him cough up bloody sputum. -He is discharged on oral Augmentin, and a Combivent inhaler, as he refuses a nebulizer machine at home. He refuses home oxygen, but does not appear to need that. 2. Pulmonary. History of COPD. Treatment as noted above. -The patient continues to want to smoke cigarettes. In general he declines using inhaled medications or oxygen. 3. Cardiac. History of CHF and coronary artery disease. Blood pressure and heart rhythm remained stable, with controlled rate. Atrial fibrillation, chronic. -Continue warfarin, monitor closely. INR is therapeutic today. -The patient is supposed to be on metoprolol at home, his son seems a little unsure of which medicines he is actually taking, but hopefully is on both digoxin and metoprolol as these were prescribed at discharge for his last admission. -INR is in therapeutic range today at 2.3. -hypertension. Continue medications as tolerated. 4. CODE STATUS: Patient states he would like to be a full code. 5. DVT prophylaxis: Continue warfarin. Monitor per pharmacy. 6. Endocrine. Type 2 diabetes. Monitor Accu-Cheks, covered with sliding scale insulin. Accu-Cheks are currently ranging from 131 - 266. 7. Reported history of obstructive sleep apnea. It is doubtful that he would wear a CPAP mask, but I will try to confirm with his family. 8. Renal. Patient has known CKD, and presents with slightly elevated creatinine over baseline. BUN and creatinine are mildly improved today and are approaching baseline. He received very low-dose IV fluids, regarding his history of CHF. Approximately 40 minutes was spent today, interviewing and examining the patient , reviewing test results, and writing orders. I then examined him again this evening, prior to discharge. Discharge diagnosis: COPD exacerbation. Right upper, middle, lower lobe pneumonia. Noncomplian - Time Spent with Patient Total time spent providing and/or coordinating discharge services: Greater than 30 minutes Medical - DS: Exam - Constitutional Vitals: Vital Signs Temp Pulse Pulse Resp BP BP Pulse Ox 10/09/17 07:05 85 16 98 10/09/17 04:04 97.8 F 18 153/82 99 10/09/17 00:44 18 157/77 100 10/08/17 20:00 98.0 F 90 16 125/62 98 10/08/17 19:21 70 20 10/08/17 16:47 97.0 F 16 97/64 10/08/17 16:00 99.0 F H 58 L 16 128/52 96 10/08/17 13:17 69 22 10/08/17 13:13 97 Intake and Output 10/08/17 10/09/17 10/09/17 21:59 05:59 13:59 Intake Total 640 / 640 290 / 290 290 / 290 Output Total 100 / 100 2 / 2 Balance 540 / 540 288 / 288 290 / 290 Intake: IV 300 / 300 50 / 50 50 / 50 Zithromax 500 mg In Dextrose 5% 250 / 250 in Water 250 ml @ 250 mls/hr IV DAILY [facility] Rx#:[id number] Zosyn 3.375 gm In Dextrose 5% 50 / 50 50 / 50 50 / 50 in Water 50 ml @ 100 mls/hr IV Q6H [facility] Rx#:[id number] Oral 340 / 340 240 / 240 240 / 240 Output: Void Amount 100 / 100 # of times incontinent of urine 2 / 2 Other: Meal Dinner ice cream Percent of Meal Consumed 100% 100% Feeding Ability Independent Independent Weight 155 lb 3.2 oz Medical - DS: Data Labs on day of discharge: Labs from last 24 hours 10/09/17 10/09/17 10/09/17 03:41 03:41 03:41 WBC RBC Hgb Hct MCV MCH MCHC RDW Plt Count MPV Gran % Lymph % (Auto) Pepin % (Auto) Eos % (Auto) Baso % (Auto) Gran # Lymph # (Auto) Pepin # (Auto) Eos # (Auto) Baso # (Auto) PT 25.7 H INR 2.3 H Sodium 136 Potassium 4.1 Chloride 103 Carbon Dioxide 22 Anion Gap 11.0 BUN 36 H Creatinine 1.7 H GFR Calculation 37 Glucose 114 H Uric Acid 5.1 Calcium 7.9 L Phosphorus 2.9 Magnesium 2.1 Total Bilirubin 0.3 Direct Bilirubin < 0.2 GGT 9 AST 9 ALT < 5 Alkaline Phosphatase 62 Lactate Dehydrogenase 137 Total Protein 6.0 Albumin 2.5 L Globulin 3.5 Albumin/Globulin Ratio 0.7 L Triglycerides 30 Digoxin 0.4 Digoxin Dose Not Reportable Digox Last Dose Time Not Reportable 10/09/17 03:41 WBC 7.8 RBC 2.66 L Hgb 8.2 L Hct 25.3 L MCV 95.0 MCH 30.7 MCHC 32.3 RDW 15.4 H Plt Count 194 MPV 9.0 Gran % 73.4 Lymph % (Auto) 11.9 L Pepin % (Auto) 13.1 H Eos % (Auto) 1.4 Baso % (Auto) 0.2 Gran # 5.8 Lymph # (Auto) 0.9 L Pepin # (Auto) 1.0 H Eos # (Auto) 0.1 Baso # (Auto) 0 PT INR Sodium Potassium Chloride Carbon Dioxide Anion Gap BUN Creatinine GFR Calculation Glucose Uric Acid Calcium Phosphorus Magnesium Total Bilirubin Direct Bilirubin GGT AST ALT Alkaline Phosphatase Lactate Dehydrogenase Total Protein Albumin Globulin Albumin/Globulin Ratio Triglycerides Digoxin Digoxin Dose Digox Last Dose Time Preliminary micro results at discharge 10/07/17 13:37 Blood Culture - Preliminary Blood 10/07/17 13:25 Blood Culture - Preliminary Blood Medical - DS: A/P - Patient/Caregiver Discharge Instructions Activity: increase activity as tolerated Diet: Regular Diet, Low Sodium (2gm), Consistent Carbohydrate Additional Instructions: 1. Pneumonia, right upper, middle, lower lobes. -Please take the antibiotic, Augmentin, as prescribed, until gone . -Please obtain a Combivent inhaler, and use 2 puffs 4 times a day. Please have the pharmacist show you how to use if you are unsure. . -Please notify your doctor if you develop increasing shortness of breath or fever. 2. Type 2 diabetes Please monitor your blood sugars before meals, and report these numbers to your doctor. 3. Tobacco abuse. You should strongly consider quitting smoking altogether, as this makes your lung function worse. 4. Cardiac. History of atrial fibrillation and CHF. -Your furosemide and lisinopril were held during this stay, due to acute kidney dysfunction. You did not need these medications while here, so please hold them until you see your doctor in follow-up. -Please weigh yourself every morning, and keep a diary of your weights. Please take this with you when you go back in to see her doctor. -We changed your metoprolol from a short acting form to a long-acting form. Please continue with 50 mg once a day. -Your potassium was quite low on admission, so a new potassium prescription was ordered. -You take warfarin because of atrial fibrillation. Please have your pro time rechecked in 1-2 days, as the changes in your medications may have changed her level. Discharge medications: Warfarin 4 mg each evening. Please have pro time/INR rechecked in 2 days, as this may change with new medications. Augmentin 875 mg p.o. twice daily, 1 week, for pneumonia Combivent inhaler (or Respimat) 2 puffs 4 times daily, for COPD Cetirizine 10 mg daily as needed allergies Clonidine 0.2 mg twice daily for hypertension Digoxin 62.5 mcg p.o. daily Iron sulfate 325 mg daily Finasteride 5 mg daily Guaifenesin 600 mg 3 times daily as needed thick secretions Multivitamin with minerals daily Metoprolol succinate 50 mg p.o. daily this was changed to the long-acting, once a day, form -please stop metoprolol tartrate Oxybutynin 5 mg p.o. 3 times daily Potassium chloride 10 mEq p.o. daily for low potassium Pravastatin 40 mg p.o. nightly Please stop: Lasix 20 mg, as you were dehydrated on admission Lisinopril 5 mg, as you came in with kidney dysfunction Please verify these with your primary care physician at follow-up. Previous home Medications: Ferrous Sulfate 325 mg PO ONCE 03/07/17 [History Confirmed 10/07/17 Last Taken Unknown] cloNIDine HCL [Catapres] 0.2 mg PO BID 03/07/17 [History Confirmed 10/07/17 Last Taken Unknown] Digoxin [Digitek] 62.5 mcg PO QDAY #30 tab 03/14/17 [Rx Confirmed 10/07/17 Last Taken Unknown] Cetirizine HCl [All Day Allergy] 10 mg PO DAILY 10/07/17 [History Confirmed 02/18 Last Taken Unknown] Finasteride [Proscar] 5 mg PO DAILY 10/07/17 [History Confirmed 10/07/17 Last Taken Unknown] Furosemide [Lasix] 20 mg PO DAILY 10/07/17 [History Confirmed 10/07/17 Last Taken Unknown] Lisinopril [Zestril] 5 mg PO QDAY 10/07/17 [History Confirmed 10/07/17 Last Taken Unknown] Metoprolol Tartrate [Lopressor] 50 mg PO DAILY 10/07/17 [History Confirmed 10/07 Last Taken Unknown] Multivit-Min/FA/Lycopen/Lutein [Adults 50+ Multivitamin Tablet] 1 each PO DAILY 10/07/17 [History Confirmed 10/07/17 Last Taken Unknown] Oxybutynin Chloride [Ditropan Xl] 5 mg PO TID 10/07/17 [History Confirmed Last Taken Unknown] Pravastatin [Pravachol] 40 mg PO HS 10/07/17 [History Confirmed 10/07/17 Last Taken Unknown] Warfarin Sodium [Jantoven] 4 mg PO DAILY 10/07/17 [History Confirmed 10/07/17 Last Taken Unknown] guaiFENesin [Guaifenesin] 600 mg PO TIDP PRN 10/07/17 [History Confirmed Last Taken Unknown] Prescriptions: Amoxicillin/Potassium Clav [Augmentin] 875 mg PO Q12H #14 tab Ipratropium/Albuterol Sulfate [Combivent] 2 puff INH QID #1 inhaler Metoprolol Succinate [Toprol Xl] 50 mg PO DAILY #30 tab.xl.24h Potassium Chloride [Kdur] 10 meq PO [facility] #30 tab - Problem Maintenance (1) Community acquired pneumonia Status: Acute (2) Acute kidney injury superimposed on chronic kidney disease Status: Acute (3) Atrial fibrillation Status: Chronic Comment: 11/01/2014 [place] Qualifiers: Atrial fibrillation type: unspecified Qualified Code(s): I48.91 - Unspecified atrial fibrillation (4) CHF (congestive heart failure) Status: Chronic (5) Chronic obstructive pulmonary disease Status: Chronic (6) Diabetes mellitus, type II Status: Chronic Qualifiers: Diabetes mellitus complication status: with unspecified complications (7) Tobacco abuse Status: Acute Comment: 11/01/14 [place] - Follow up Plan Follow up with: Sunny Nieves ARNP [Primary Care Provider] - 10/17/17 2:00 pm (Your appointment is scheduled with Sunny Nieves at the [facility] ) Disposition: Home, Self-Care Prognosis: Fair Rehab Potential: Fair I certify that the patient requires SNF services: No Overall status at discharge: patient is progressing back to baseline Medical - DS: Qual - VTE Deep Vein Thrombosis/Pulmonary Embolism Present on Admission: No
[2017-10-09] MEDS ORDERED: WARFARIN 5 MG TABLET PO SCH (14:00)
== END 2017-10-09 17:30 | disposition home or self-care (01) | DRG 194 ==
LOC: ED 12:57 → ICU 15:37
PROVIDERS: ADMIT Internal Medicine; ATTEND Internal Medicine

== ENCOUNTER 2018-02-03 12:52 | Observation (INO) ==
[2018-02-03] MEDS ORDERED: 0.9 % SODIUM CHLORIDE 1,000 ML IV ONE ×2 (13:10→15:46)
[2018-02-03] MEDS ORDERED: methylPREDNISolone SOD SUCC 125 MG/2 ML VIAL IV ONE (13:23)
[2018-02-03] MEDS ORDERED: cefTRIAXone 1 GM VIAL IV ONE (13:23)
[2018-02-03 13:59] LABS: Mean Cell Volume 93.6 fL (80.0-100.0); Platelet Count 283 K/mcL (140-440); RBC 4.17 M/mcL (4.50-5.90); Red Cell Distribution Width 17.1 % (11.5-14.5)
--- NOTE | 2018-02-03 14:06 | XRay Report ---
CLINICAL INFORMATION: Dyspnea COMPARISON: 10/09/[address] plain films and chest CT from 03/11/2017 FINDINGS: Marked cardiomegaly is unchanged. Ectatic thoracic aorta is noted. Pulmonary vessels are mildly distended. There is complete chronic atelectasis of both the right middle and lower lobes with moderate right pleural effusion. IMPRESSION: 1. Complete chronic right middle and lower lobe atelectasis and moderate right pleural effusion. 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 Consider thoracentesis followed by repeat chest CT 2. Moderate underlying CHF Interpreted and Authenticated by: Topher Mcfarlane 02/03/18
[2018-02-03] MEDS ORDERED: LEVOFLOXACIN 750 MG/150 ML BAG IV ONE (14:11)
--- NOTE | 2018-02-03 14:17 | Emergency Department Note ---
SOB HPI - General Chief Complaint: Shortness of Breath/Dyspnea Stated Complaint: shortness of breath, lethargy Time Seen by Provider: 02/03/18 13:03 Source: patient, family Mode of arrival: wheelchair Limitations: no limitations - Related Data Home Medications Medication Instructions Recorded Confirmed Ferrous Sulfate 325 mg PO ONCE 03/07/17 02/03/18 cloNIDine HCL [Catapres] 0.2 mg PO BID 03/07/17 02/03/18 Cetirizine HCl [All Day Allergy] 10 mg PO DAILY 10/07/17 02/03/18 Finasteride [Proscar] 5 mg PO DAILY 10/07/17 02/03/18 Multivit-Min/FA/Lycopen/Lutein 1 each PO DAILY 10/07/17 02/03/18 [Adults 50 Plus Multivitamin Tb] Oxybutynin Chloride [Ditropan Xl] 5 mg PO BID 10/07/17 02/03/18 Pravastatin [Pravachol] 40 mg PO HS 10/07/17 02/03/18 Warfarin Sodium [Jantoven] 4 mg PO .COMPLEX 10/07/17 02/03/18 Digoxin [Digitek] 125 mcg PO QDAY 02/03/18 02/03/18 Furosemide [Lasix] 20 mg PO DAILY 02/03/18 02/03/18 Lisinopril [Zestril] 5 mg PO DAILY 02/03/18 02/03/18 Previous Rx's Medication Instructions Recorded Accu-Chek 1 each FS ACHS strip 10/09/17 Ipratropium/Albuterol Sulfate 2 puff INH QID #1 inhaler 10/09/17 [Combivent] Metoprolol Succinate [Toprol Xl] 50 mg PO DAILY #30 tab.xl.24h 10/09/17 Allergies Allergy/AdvReac Type Severity Reaction Status Date / Time No Known Drug Allergies Allergy Verified 10/07/17 13:01 Past Medical History - Past Medical History Medical history: Reports: coronary artery disease, dementia, other (bstructive sleep apnea) Surgical history ED: Reports: other (peripheral vascular bypass) - Social History smoking status: Current every day smoker Alcohol use: Reports: None Drug use: Reports: none Physical Exam Limitations: no limitations Course Vital Signs Temperature 98.9 F 02/03/18 12:53 Pulse Rate 87 02/03/18 12:53 Respiratory Rate 30 H 02/03/18 12:53 Blood Pressure 91/58 02/03/18 12:53 Pulse Oximetry (%) 97 02/03/18 12:53 Temperature 98.9 F 02/03/18 12:53 Pulse Rate 83 02/03/18 13:17 Respiratory Rate 29 H 02/03/18 13:17 Blood Pressure 91/71 02/03/18 13:17 Pulse Oximetry (%) 92 02/03/18 13:17 Shortness of Breath/Dyspnea - Lab Data Result diagrams: 02/03/18 13:10 02/03/18 13:10 Lab Results 02/03/18 02/03/18 Range/Units 13:10 13:10 WBC 27.9 H (4.5-11.0) K/mcL RBC 4.17 L (4.50-5.90) M/mcL Hgb 12.5 L (13.5-16.5) g/dL Hct 39.1 L (41.0-55.0) % MCV 93.6 (80.0-100.0) fL MCH 30.0 (26.0-34.0) pg MCHC 32.0 (31.0-36.0) g/dL RDW 17.1 H (11.5-14.5) % Plt Count 283 (140-440) K/mcL MPV 9.1 (7.4-10.4) fL Band Neutrophils % Not Reportable VBG Lactic Acid 2.9 H (0.5-2.2) mmol/L - Radiology Data Radiology results reviewed: Yes I reviewed the patient's radiology results. 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
[2018-02-03 14:19] LABS: ALT/SGPT 10 U/l (0-40); Albumin 3.2 gm/dL (3.2-5.2); Albumin/Globulin Ratio 0.7 (1.0-2.3); Alkaline Phosphatase 123 U/L (39-117); Blood Urea Nitrogen 34 mg/dl (8-23)
[2018-02-03 14:21] LABS: Anisocytosis 1+ (NONE SEEN); Band Neutrophils % 14 % (0-10); Lymphocytes % 2 % (15-49); Monocytes % (Manual) 9 % (1-12); Platelet Estimate NORMAL (NORMAL); RBC Morphology ABNORM (NORMAL); Segmented Neutrophils % 75 % (38-78)
--- NOTE | 2018-02-03 15:43 | Internal Med History&Physical ---
Medical - H&P: [facility] Patient information: Note initiated : 02/03/18 at 3:40 pm Service Date, if different from initiated Date: [] Patient: Tanvir Rubin 82 y/o M admitted on for shortness of breath, lethargy. Chief Complaint: denies any symptoms History of present illness: Mr. Rubin is a 82 year old Male, brought in by daughter Rica for 'sleeping all day' and appearing more SOB than usual. She didn't notice any coughing, or elevated temp. Patient is awake and alert. He denies any SOB, pain, coughing. He doesn't believe that he has a pneumonia and initially refused admission. Patient smokes 1 ppd, has dilated cardiomyopathy with EF 35% (03/2017), chronic atrial fibrillation and collapse of the RML and RLL. He has had recurrent pneumonia on the right. DD post-obstructive infection. Daughter is aware of possible malignancy, but has not pursued work-up as patient is likely to refuse any treatment. ROS: denies any symptoms; 'everything is fine', wants to go home. Medical - H&P: [facility] Medical history: Medical History Sepsis (Acute) Pneumonia (Acute) CHF (congestive heart failure) (Chronic) Lactic acid acidosis (Acute) Acute kidney injury superimposed on chronic kidney disease (Acute) Chronic Kidney Disease (Chronic) History of ECG (Chronic 10/26/15) Anemia (Acute) Pneumonia (Acute) Septic shock (Acute) Atrial fibrillation (Chronic) Diabetes mellitus, type II (Chronic) Coronary atherosclerosis (Acute) Pulmonary embolism (Acute) Cardiomyopathy (Acute) TIA (transient ischemic attack) (Acute) Tobacco abuse (Acute) Tachycardia (Acute) Obstructive sleep apnea (Acute) Respiratory failure, chronic (Acute) Respiratory failure (Acute) Pulmonary collapse (Acute) Psychosis (Acute) Pleural effusion (Acute) Peripheral vascular disease (Acute) Paroxysmal supraventricular tachycardia (Acute) Osteoarthritis (Acute) Nocturia (Acute) care home current use of antibiotics (Acute) Hypertension, essential (Acute) Hyperlipidemia (Acute) Finger fracture (Acute) Erectile dysfunction (Acute) Encephalopathy (Acute) Diastolic heart failure (Acute) Congestive heart failure (Acute) Chronic obstructive pulmonary disease (Chronic) Cachexia (Acute) Bladder outlet obstruction (Acute) Benign neoplasm (Acute) 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 Daughter Coleen is POA Smoking status: Current every day smoker (1 ppd) Have you smoked in the last 12 months: Yes Drug use: none Medical - H&P: Meds Home Medications Medication Instructions Recorded Confirmed Type Ferrous Sulfate 325 mg PO ONCE 03/07/17 02/03/18 History cloNIDine HCL [Catapres] 0.2 mg PO BID 03/07/17 02/03/18 History Cetirizine HCl [All Day Allergy] 10 mg PO DAILY 10/07/17 02/03/18 History Finasteride [Proscar] 5 mg PO DAILY 10/07/17 02/03/18 History Multivit-Min/FA/Lycopen/Lutein 1 each PO DAILY 10/07/17 02/03/18 History [Adults 50 Plus Multivitamin Tb] Oxybutynin Chloride [Ditropan Xl] 5 mg PO BID 10/07/17 02/03/18 History Pravastatin [Pravachol] 40 mg PO HS 10/07/17 02/03/18 History Warfarin Sodium [Jantoven] 4 mg PO .COMPLEX 10/07/17 02/03/18 History Accu-Chek 1 each FS ACHS strip 10/09/17 02/03/18 Rx Ipratropium/Albuterol Sulfate 2 puff INH QID #1 inhaler 10/09/17 02/03/18 Rx [Combivent] Metoprolol Succinate [Toprol Xl] 50 mg PO DAILY #30 tab.xl.24h 10/09/17 Rx Digoxin [Digitek] 125 mcg PO QDAY 02/03/18 02/03/18 History Furosemide [Lasix] 20 mg PO DAILY 02/03/18 02/03/18 History Lisinopril [Zestril] 5 mg PO DAILY 02/03/18 02/03/18 History Allergies Allergy/AdvReac Type Severity Reaction Status Date / Time No Known Drug Allergies Allergy Verified 10/07/17 13:01 Medical - H&P: Exam - Constitutional Vitals: Temp Pulse Resp BP Pulse Ox 98.9 F 83 34 H 156/72 92 02/03/18 12:53 02/03/18 15:01 02/03/18 15:01 02/03/18 15:01 02/03/18 15:01 General appearance: no acute distress, thin - Head Head exam: Present: normal inspection - Respiratory Respiratory exam: Present: decreased breath sounds - Cardiovascular Cardiovascular exam: Present: irregular rhythm - GI/Abdominal GI/Abdominal exam: Present: normal bowel sounds, soft - Extremities Exam Extremities exam: Present: normal inspection Medical - H&P: Reslt - Labs CBC & Chem 7: 02/03/18 13:10 02/03/18 13:10 Labs: Short CBC 02/03/18 Range/Units 13:10 WBC 27.9 H (4.5-11.0) K/mcL Hgb 12.5 L (13.5-16.5) g/dL Hct 39.1 L (41.0-55.0) % Plt Count 283 (140-440) K/mcL BMP 02/03/18 13:10 Sodium 137 Potassium 4.2 Chloride 100 Carbon Dioxide 23 BUN 34 H Creatinine 1.7 H Glucose 154 H Calcium 9.0 Liver Function 02/03/18 Range/Units 13:10 Total Bilirubin 1.2 H (0.0-1.0) mg/dL AST 20 (0-37) U/l ALT 10 (0-40) U/l Alkaline Phosphatase 123 H (39-117) U/L Albumin 3.2 (3.2-5.2) gm/dL Medical - H&P: A/P - Narrative A/P Narrative: 82-year-old male with following problems: ACUTE: - RLL pneumonia a/w WBC 27 CXR showed mediastinal shift to right, RLL consolidation and pleural effusion. DD post-obstructive pneumonia Rx: Zosyn and ceftriaxone IVF - Acute on chronic renal failure a/w hypotension IVF Hold BP meds Watch closely for CHF CHRONIC: - Dilated cardiomyopathy with EF 35 % - Chronic atrial fibrillation - COPD - Nicotine dependence - Chronic RML and RLL collapse dd malignancy DVT prophylaxis: is on coumadin Code status: full code as per daughter/POA Rica
[2018-02-03] MEDS ORDERED: ALBUTEROL SULFATE 2.5 MG/3 ML NEBULIZER NEB PRN (16:29)
[2018-02-03] MEDS ORDERED: ACETAMINOPHEN 325 MG TABLET PO PRN (16:29)
[2018-02-03] MEDS: PIPERACILLIN SODIUM/TAZOBACTAM 2.25 GM in DEXTROSE 5% IN WATER 50 ML IV SCH (17:33)
[2018-02-03] MEDS: 0.9 % SODIUM CHLORIDE 1,000 ML IV SCH ×2 (17:36→20:10)
[2018-02-03] MEDS: IPRATROPIUM/ALBUTEROL 3 ML AMPUL.NEB NEB SCH (18:58)
[2018-02-03] MEDS: 0.9 % SODIUM CHLORIDE 10 ML SYRINGE IV SCH (21:30)
[2018-02-03] MEDS ORDERED: FERROUS SULFATE 325 MG TABLET PO SCH (22:00)
[2018-02-04] MEDS: PIPERACILLIN SODIUM/TAZOBACTAM 2.25 GM in DEXTROSE 5% IN WATER 50 ML IV SCH ×3 (00:02→12:44)
[2018-02-04] MEDS: IPRATROPIUM/ALBUTEROL 3 ML AMPUL.NEB NEB SCH ×3 (00:49→12:46)
[2018-02-04] MEDS: 0.9 % SODIUM CHLORIDE 10 ML SYRINGE IV SCH ×2 (04:20→15:13)
[2018-02-04] MEDS: 0.9 % SODIUM CHLORIDE 1,000 ML IV SCH ×3 (04:20→16:23)
[2018-02-04 05:47] LABS: Mean Cell Volume 94.4 fL (80.0-100.0); Mean Corpuscular HGB Conc 32.2 g/dL (31.0-36.0); Mean Corpuscular Hemoglobin 30.4 pg (26.0-34.0); Platelet Count 235 K/mcL (140-440); RBC 3.74 M/mcL (4.50-5.90); Red Cell Distribution Width 16.6 % (11.5-14.5)
[2018-02-04 06:02] LABS: Blood Urea Nitrogen 40 mg/dl (8-23)
[2018-02-04] MEDS: OXYBUTYNIN CHLORIDE 5 MG TAB.XL.24H PO SCH ×2 (08:09→15:03)
[2018-02-04 08:10] LABS: Anisocytosis 1+ (NONE SEEN); Band Neutrophils % 21 % (0-10); Lymphocytes % 4 % (15-49); Metamyelocytes % 1 % (0-0); Monocytes % (Manual) 7 % (1-12); Platelet Estimate NORMAL (NORMAL); RBC Morphology ABNORM (NORMAL); Segmented Neutrophils % 67 % (38-78)
[2018-02-04] MEDS: IPRATROPIUM/ALBUTEROL SULFATE 1 PUFF INHALER INH SCH ×2 (08:14→12:45)
[2018-02-04] MEDS ORDERED: METOPROLOL SUCCINATE 50 MG TAB.XL.24H PO SCH (09:00)
[2018-02-04] MEDS ORDERED: cefTRIAXone 1 GM VIAL IV SCH (09:00)
[2018-02-04] MEDS ORDERED: FINASTERIDE 5 MG TABLET PO SCH (09:00)
--- NOTE | 2018-02-04 12:21 | Discharge Summary ---
Medical - DS: Prov Patient information: Note initiated : 02/04/18 at 12:15 pm Service Date, if different from initiated Date: [] Patient: Tanvir Rubin 83 y/o M admitted on 02/03/18 for Shortness of Breath, Lethargy/Pneumonia. Chief Complaint: none Date of admission: 02/03/18 16:21 Discharge date: 02/04/18 Primary care physician: Sunny Nieves Medical - DS: Meds - Discharge Medications Prescriptions: Amoxicillin/Potassium Clav [Augmentin] 500 mg PO BID #28 tablet Ciprofloxacin [Cipro] 250 mg PO BID #28 tablet Ipratropium/Albuterol Sulfate [Combivent] 2 puff INH QID #3 inhaler Active and Home Medications: Home Medications Ferrous Sulfate 325 mg PO ONCE 03/07/17 [History Confirmed 02/03/18 Last Taken 02/03/18 08:00] cloNIDine HCL [Catapres] 0.2 mg PO BID 03/07/17 [History Confirmed 02/03/18 Last Taken 02/03/18 10:30] Cetirizine HCl [All Day Allergy] 10 mg PO DAILY 10/07/17 [History Confirmed 12/22 Last Taken 01/27/18 10:00] Finasteride [Proscar] 5 mg PO DAILY 10/07/17 [History Confirmed 02/03/18 Last Taken 01/27/18 10:00] Multivit-Min/FA/Lycopen/Lutein [Adults 50 Plus Multivitamin Tb] 1 each PO DAILY 10/07/17 [History Confirmed 02/03/18 Last Taken 02/03/18 10:30] Oxybutynin Chloride [Ditropan Xl] 5 mg PO TID 10/07/17 [History Confirmed Last Taken 02/03/18 10:30] Pravastatin [Pravachol] 40 mg PO HS 10/07/17 [History Confirmed 02/03/18 Last Taken 01/27/18 10:00] Warfarin Sodium [Jantoven] 5 mg PO .COMPLEX 10/07/17 [History Confirmed Last Taken 02/03/18 10:00] Accu-Chek 1 each FS ACHS strip 10/09/17 [Rx Confirmed 02/03/18 Last Taken Unknown] Ipratropium/Albuterol Sulfate [Combivent] 2 puff INH QID #1 inhaler 10/09/17 [ Rx Confirmed 02/03/18 Last Taken Unknown] Metoprolol Succinate [Toprol Xl] 50 mg PO DAILY #30 tab.xl.24h 10/09/17 [Rx Confirmed 02/03/18 Last Taken 02/03/18 10:30] Digoxin [Digitek] 125 mcg PO QDAY 02/03/18 [History Confirmed 02/03/18 Last Taken 02/03/18 10:30] Furosemide [Lasix] 20 mg PO DAILY 02/03/18 [History Confirmed 02/03/18 Last Taken 02/03/18 10:30] guaiFENesin [Mucinex] 600 mg PO 02/03/18 [History Last Taken Unknown] Medical - DS: Hosp Hospital course: History of present illness: Mr. Rubin is a 82 year old Male, brought in by daughter Rica for 'sleeping all day' and appearing more SOB than usual. She didn't notice any coughing, or elevated temp. Patient is awake and alert. He denies any SOB, pain, coughing. He doesn't believe that he has a pneumonia and refuses admission. Patient smokes 1 ppd, has dilated cardiomyopathy with EF 35% (03/2017), chronic atrial fibrillation and collapse of the RML and RLL. He has had recurrent pneumonia on the right. DD post-obstructive infection. Daughter is aware of possible malignancy, but has not pursued work-up as patient is likely to refuse any treatment. ROS: denies any symptoms; 'everything is fine', wants to go home. February 03: Patient admitted with following problems: ACUTE: - RLL pneumonia a/w WBC 27 CXR showed mediastinal shift to right, RLL consolidation and pleural effusion. DD post-obstructive pneumonia Rx: Zosyn and ceftriaxone IVF - Acute on chronic renal failure a/w hypotension IVF Hold BP meds Watch closely for CHF CHRONIC: - Dilated cardiomyopathy with EF 35 % - Chronic atrial fibrillation - COPD - Nicotine dependence - Chronic RML and RLL collapse dd malignancy Patient had refused admission, denied any more SOB and coughing than usual. He was urged by his daughter Coleen to get one day on IV antibiotics in hospital. February 03: Patient is afebrile and hemodynamically stable. He appears sob, but denies being symptomatic, and insists on going home. We have at length and repeatedly tried to explained patient the need to have IV antibiotics for his lung and blood infection. Attempts were to no avail. I explained Coleen that at this point we should let patient go home. He has an post -obstructive pneumonia and multiple other health problems with no, or minimal chance for definitive cure. patient is full code now. I suggested to Coleen that he most likely would want to be comfort care only. He will be discharged on Cipro and Augmentin. Overall prognosis is poor. Discharge diagnosis: Pneumonia, Gram negative bacteremia, refusal of treatment Secondary discharge diagnosis: RLL post-obstructive pneumonia, recurrent CKD Dilated cardiomyopathy with EF 35% Chronic atrial fibrillation COPD Nicotine dependence Reason for admission: Pneumonia Pertinent studies/significant findings: CXR: complete chronic RML and RLL atelectasis and moderate size pleural effusion CT-chest 03/2017: IMPRESSION: 1. Severe right lower lobe volume loss. 2. Right lower lobe bronchus is not aerated or well visualized. Bronchoscopy may be helpful 3. Cardiomegaly with biatrial enlargement 4. Small right pleural effusion 5. Centrilobular emphysema - Time Spent with Patient Total time spent providing and/or coordinating discharge services: Medical - DS: Exam - Constitutional Vitals: Vital Signs Temp Pulse Pulse Resp BP BP BP 02/04/18 10:42 98.4 F 24 H 98/71 02/04/18 07:27 91 H 20 02/04/18 06:44 98.8 F 24 H 147/89 02/04/18 04:00 98.3 F 79 28 H 155/91 02/04/18 00:49 78 40 H 02/03/18 23:27 98.9 F 68 28 H 101/74 02/03/18 19:01 94 H 24 H 02/03/18 19:00 02/03/18 18:53 99.0 F H 117 H 28 H 157/89 02/03/18 18:00 28 H 02/03/18 17:45 97.6 F 02/03/18 16:39 98.9 F 51 L 24 H 151/134 02/03/18 16:21 99.7 F H 98 H 24 H 159/92 02/03/18 16:16 51 L 34 H 151/134 02/03/18 16:01 100 H 30 H 165/114 02/03/18 15:46 93 H 25 H 144/86 02/03/18 15:31 89 30 H 140/93 02/03/18 15:01 83 34 H 156/72 02/03/18 14:46 78 17 117/71 02/03/18 14:31 78 16 101/76 02/03/18 14:16 79 112/77 02/03/18 14:01 71 97/64 02/03/18 13:48 76 33 H 106/73 02/03/18 13:31 31 H 92/68 02/03/18 13:17 83 29 H 91/71 02/03/18 13:15 91 H 52/41 02/03/18 12:53 98.9 F 87 30 H 91/58 Pulse Ox 02/04/18 10:42 94 02/04/18 07:27 02/04/18 06:44 90 02/04/18 04:00 92 02/04/18 00:49 02/03/18 23:27 92 02/03/18 19:01 02/03/18 19:00 93 02/03/18 18:53 95 02/03/18 18:00 91 02/03/18 17:45 02/03/18 16:39 95 02/03/18 16:21 94 02/03/18 16:16 95 02/03/18 16:01 92 02/03/18 15:46 92 02/03/18 15:31 92 02/03/18 15:01 92 02/03/18 14:46 90 02/03/18 14:31 88 L 02/03/18 14:16 90 02/03/18 14:01 92 02/03/18 13:48 91 02/03/18 13:31 02/03/18 13:17 92 02/03/18 13:15 94 02/03/18 12:53 97 Intake and Output 02/03/18 02/04/18 02/04/18 21:59 05:59 13:59 Intake Total 1832 1833 1450 / 1450 50 / 50 Output Total Balance 1832 / 3 1449 / 1449 49 / 49 Intake: IV 1832 / 3 1050 / 1050 50 / 50 Sodium Chloride 0.9% 1,000 ml @ 1633 / 1633 1000 / 1000 125 mls/hr IV .Q8H [facility]O Rx#: [id number] Zosyn 2.25 gm In Dextrose 5% in 50 / 50 50 / 50 50 / 50 Water 50 ml @ 100 mls/hr IV Q6H [facility]O Rx#:[id number] Oral 400 / 400 Output: # of times incontinent of urine Other: Meal Breakfast Feeding Ability Independent Weight 140 lb General appearance: no acute distress, thin - Respiratory Respiratory exam: Present: decreased breath sounds - Cardiovascular Cardiovascular exam: Present: irregular rhythm - GI/Abdominal GI/Abdominal exam: Present: normal bowel sounds, soft - Extremities Exam Extremities exam: Present: normal inspection Medical - DS: Data Labs on day of discharge: Labs from last 24 hours 02/04/18 02/04/18 02/03/18 04:10 04:10 13:10 WBC 23.0 H RBC 3.74 L Hgb 11.4 L Hct 35.3 L MCV 94.4 MCH 30.4 MCHC 32.2 RDW 16.6 H Plt Count 235 MPV 9.5 Total Counted 100 Seg Neutrophils % 67 Band Neutrophils % 21 H Lymphocytes % 4 L Monocytes % (Manual) 7 Metamyelocytes % 1 H Platelet Estimate Normal RBC Morphology Abnorm A Anisocytosis 1+ A PT INR VBG Lactic Acid Sodium 131 L Potassium 3.9 Chloride 97 Carbon Dioxide 18 L Anion Gap 16.0 BUN 40 H Creatinine 1.7 H GFR Calculation 36 Glucose 171 H Calcium 8.7 Total Bilirubin AST ALT Alkaline Phosphatase Total Protein Albumin Globulin Albumin/Globulin Ratio Procalcitonin 11.23 02/03/18 02/03/18 02/03/18 13:10 13:10 13:10 WBC RBC Hgb Hct MCV MCH MCHC RDW Plt Count MPV Total Counted Seg Neutrophils % Band Neutrophils % Lymphocytes % Monocytes % (Manual) Metamyelocytes % Platelet Estimate RBC Morphology Anisocytosis PT 23.9 H INR 2.1 H VBG Lactic Acid 2.9 H Sodium 137 Potassium 4.2 Chloride 100 Carbon Dioxide 23 Anion Gap 14.0 BUN 34 H Creatinine 1.7 H GFR Calculation 37 Glucose 154 H Calcium 9.0 Total Bilirubin 1.2 H AST 20 ALT 10 Alkaline Phosphatase 123 H Total Protein 7.9 Albumin 3.2 Globulin 4.7 H Albumin/Globulin Ratio 0.7 L Procalcitonin 02/03/18 13:10 WBC 27.9 H RBC 4.17 L Hgb 12.5 L Hct 39.1 L MCV 93.6 MCH 30.0 MCHC 32.0 RDW 17.1 H Plt Count 283 MPV 9.1 Total Counted 100 Seg Neutrophils % 75 Band Neutrophils % 14 H Lymphocytes % 2 L Monocytes % (Manual) 9 Metamyelocytes % Platelet Estimate Normal RBC Morphology Abnorm A Anisocytosis 1+ A PT INR VBG Lactic Acid Sodium Potassium Chloride Carbon Dioxide Anion Gap BUN Creatinine GFR Calculation Glucose Calcium Total Bilirubin AST ALT Alkaline Phosphatase Total Protein Albumin Globulin Albumin/Globulin Ratio Procalcitonin Preliminary micro results at discharge 02/03/18 13:10 Blood Culture - Preliminary Blood Gram negative bacillus 02/03/18 13:20 Blood Culture - Preliminary Blood Gram negative bacillus Medical - DS: A/P - Patient/Caregiver Discharge Instructions Activity: increase activity as tolerated Diet: Regular Diet - Follow up Plan Follow up with: Sunny Nieves ARNP [Primary Care Provider] - Disposition: Home, Self-Care Prognosis: Fair Rehab Potential: Fair Overall status at discharge: patient is not back to baseline
[2018-02-04] MEDS ORDERED: cefTRIAXone 1 GM in DEXTROSE 5% IN WATER 50 ML IV SCH (13:00)
[2018-02-04] MEDS ORDERED: WARFARIN 2 MG TABLET PO SCH (14:00)
[2018-02-04] MEDS ORDERED: DIGOXIN 125 MCG TABLET PO SCH (14:00)
[2018-02-04] MEDS ORDERED: SIMVASTATIN 20 MG TABLET PO SCH (21:00)
[2018-02-04] MEDS ORDERED: PRAVASTATIN 40 MG TABLET PO SCH (21:00)
== END 2018-02-04 17:50 | disposition home or self-care (01) ==
LOC: MEDSUR 12:52 → ED 12:52 → MEDSUR 16:25
PROVIDERS: ADMIT Specialist; ATTEND Specialist

== ENCOUNTER 2018-04-28 17:40 | Inpatient (IN) ==
--- NOTE | 2018-04-28 18:39 | XRay Report ---
CLINICAL INFORMATION: Trauma COMPARISON: None. FINDINGS: A transverse subcapital fracture of the right hip is appreciated. The femoral neck is displaced 2 cm anteriorly and superiorly with respect the femoral head. There is mild degenerative change both SI and hip joints. Soft tissue swelling of the right hip noted IMPRESSION: Displaced subcapital fracture - right hip Interpreted and Authenticated by: Topher Mcfarlaen 04/28/18
--- NOTE | 2018-04-28 18:42 | XRay Report ---
CLINICAL INFORMATION: Preop COMPARISON: 02/03/2018 FINDINGS: Marked cardiomegaly is unchanged. Tortuous thoracic aorta is appreciated. A large region of densely solid atelectasis in the right lower lobe show slight improvement. Small right pleural effusion also slightly improved IMPRESSION: Largely region of densely consolidated right lower lobe atelectasis - slightly improved. Small right pleural effusion slightly improved Marked cardiomegaly table Interpreted and Authenticated by: Topher Mcfaralne 04/28/18
[2018-04-28 19:27] LABS: ALT/SGPT 9 U/l (0-40); Albumin 3.3 gm/dL (3.2-5.2); Albumin/Globulin Ratio 0.8 (1.0-2.3); Alkaline Phosphatase 98 U/L (39-117); Blood Urea Nitrogen 42 mg/dl (8-23)
[2018-04-28 19:31] LABS: Basophils # (Auto) 0.1 K/mcL (0.0-0.3); Basophils % (Auto) 0.5 % (0.0-2.0); Eosinophils # (Auto) 0.2 K/mcL (0.0-0.7); Eosinophils % (Auto) 1.6 % (0.0-7.0); Granulocytes % (Auto) 80.4 % (38.0-78.0); Lymphocytes # (Auto) 0.9 K/mcL (1.5-4.8); Lymphocytes % (Auto) 7.4 % (15.5-49.0); Mean Cell Volume 90.8 fL (80.0-100.0); Mean Corpuscular HGB Conc 33.2 g/dL (31.0-36.0); Mean Corpuscular Hemoglobin 30.1 pg (26.0-34.0); Monocytes # (Auto) 1.3 K/mcL (0.1-0.9); Monocytes % (Auto) 10.1 % (1.0-12.0); Platelet Count 217 K/mcL (140-440); RBC 3.37 M/mcL (4.50-5.90); Red Cell Distribution Width 16.6 % (11.5-14.5)
[2018-04-28] MEDS ORDERED: 0.9 % SODIUM CHLORIDE 1,000 ML IV ONE (19:38)
--- NOTE | 2018-04-28 19:46 | Emergency Department Note ---
Lower Extremity Injury HPI - General Chief Complaint: Extremity Injury, Lower Stated Complaint: Fall on Sat, R Hip Pain Time Seen by Provider: 04/28/18 18:09 Source: patient, EMS Mode of arrival: EMS Limitations: no limitations - History of Present Illness HPI Narrative: 83-year-old male who fell down when he was with family in [place]. He has right hip pain. He also scraped his right elbow. It sounds like he turned to get up suddenly and his balance is not good since a prior below the knee amputation on that same side. He did not hit his head or lose consciousness. No other complaints at this time - Related Data Home Medications Medication Instructions Recorded Confirmed Ferrous Sulfate 325 mg PO ONCE 03/07/17 02/03/18 cloNIDine HCL [Catapres] 0.2 mg PO BID 03/07/17 02/03/18 Cetirizine HCl [All Day Allergy] 10 mg PO DAILY 10/07/17 02/03/18 Finasteride [Proscar] 5 mg PO DAILY 10/07/17 02/03/18 Multivit-Min/FA/Lycopen/Lutein 1 each PO DAILY 10/07/17 02/03/18 [Adults 50 Plus Multivitamin Tb] Oxybutynin Chloride [Ditropan Xl] 5 mg PO TID 10/07/17 02/03/18 Pravastatin [Pravachol] 40 mg PO HS 10/07/17 02/03/18 Digoxin [Digitek] 125 mcg PO QDAY 02/03/18 02/03/18 guaiFENesin [Mucinex] 600 mg PO 02/03/18 Warfarin [Coumadin] 2 mg PO DAILY 02/04/18 02/04/18 Previous Rx's Medication Instructions Recorded Accu-Chek 1 each FS ACHS strip 10/09/17 Metoprolol Succinate [Toprol Xl] 50 mg PO DAILY #30 tab.xl.24h 10/09/17 Amoxicillin/Potassium Clav 500 mg PO BID #28 tab 02/04/18 [Augmentin] Ciprofloxacin [Cipro] 250 mg PO BID #28 tab 02/04/18 Ipratropium/Albuterol Sulfate 2 puff INH QID #3 inhaler 02/04/18 [Combivent] Allergies Allergy/AdvReac Type Severity Reaction Status Date / Time No Known Drug Allergies Allergy Verified 10/07/17 13:01 Review of Systems All systems ED: reviewed and negative except as stated. Past Medical History - Past Medical History Attestation: Yes: The following information was validated with the patient. Medical history: Reports: atrial fibrillation, CHF, COPD, coronary artery disease (Cardiomyopathy), DVT, dementia, hyperlipidemia, hypertension, peripheral artery disease, pulmonary embolus, renal disease, TIA, other (Anemia , SVT, obstructive sleep apnea) Surgical history ED: Reports: cataract, herniorrhaphy, orthopedic, other ( Bilateral knees), tonsillectomy (And adenoidectomy), other (Aorto fem bypass) - Social History smoking status: Current some day smoker Alcohol use: Reports: None Drug use: Reports: none Physical Exam No acute distress. Normocephalic atraumatic. Conjunctive are clear sclerae white and nonicteric. No nasal discharge or congestion. Oropharynx is pink and moist. Heart is irregularly irregular rhythm with congruent radial pulse. 2 out of 6 early systolic murmur. Lungs are clear to auscultation bilaterally without wheezes rales rhonchi or respiratory distress. Abdomen is soft nontender nondistended. No peritoneal signs or guarding. Palpation of the right hip area shows tenderness at the groin. It is difficult to tell if the hip is malaligned because he has an amputation distal right lower leg. Alert and able to answer questions however appears to have some short-term memory loss with known dementia. Limitations: no limitations Course Vital Signs Temperature 97.4 F 04/28/18 17:41 Pulse Rate 112 H 04/28/18 17:41 Respiratory Rate 18 04/28/18 17:41 Blood Pressure 128/90 04/28/18 17:41 Pulse Oximetry (%) 94 04/28/18 17:41 Temperature 97.4 F 04/28/18 17:41 Pulse Rate 118 H 04/28/18 20:16 Respiratory Rate 16 04/28/18 18:05 Blood Pressure 124/85 04/28/18 20:16 Pulse Oximetry (%) 97 04/28/18 20:16 Extremity Injury, Lower - Lab Data Lab results reviewed: Yes I reviewed the patient's lab results. Result diagrams: 04/28/18 18:26 04/28/18 18:26 Lab Results 04/28/18 04/28/18 04/28/18 Range/Units 18:26 18:26 18:26 WBC 12.6 H (4.5-11.0) K/mcL RBC 3.37 L (4.50-5.90) M/mcL Hgb 10.2 L (13.5-16.5) g/dL Hct 30.6 L (41.0-55.0) % MCV 90.8 (80.0-100.0) fL MCH 30.1 (26.0-34.0) pg MCHC 33.2 (31.0-36.0) g/dL RDW 16.6 H (11.5-14.5) % Plt Count 217 (140-440) K/mcL MPV 8.6 (7.4-10.4) fL Gran % 80.4 H (38.0-78.0) % Lymph % (Auto) 7.4 L (15.5-49.0) % [place] % (Auto) 10.1 (1.0-12.0) % Eos % (Auto) 1.6 (0.0-7.0) % Baso % (Auto) 0.5 (0.0-2.0) % Gran # 10.1 H (1.8-8.0) K/mcL Lymph # (Auto) 0.9 L (1.5-4.8) K/mcL [place] # (Auto) 1.3 H (0.1-0.9) K/mcL Eos # (Auto) 0.2 (0.0-0.7) K/mcL Baso # (Auto) 0.1 (0.0-0.3) K/mcL PT 25.9 H (11.9-14.5) sec INR 2.3 H (0.9-1.1) Sodium 137 (133-145) mmol/L Potassium 4.5 (3.3-5.1) mmol/L Chloride 101 (96-108) mmol/L Carbon Dioxide 23 (22-30) mmol/L Anion Gap 13.0 (8-16) BUN 42 H (8-23) mg/dl Creatinine 1.9 H (0.7-1.2) mg/dl GFR Calculation 32 Glucose 154 H (70-105) mg/dL Calcium 9.2 (8.6-10.4) mg/dl Total Bilirubin 0.9 (0.0-1.0) mg/dL AST 23 (0-37) U/l ALT 9 (0-40) U/l Alkaline Phosphatase 98 (39-117) U/L Total Protein 7.7 (5.9-8.4) gm/dL Albumin 3.3 (3.2-5.2) gm/dL Globulin 4.4 H (2.2-3.7) gm/dL Albumin/Globulin Ratio 0.8 L (1.0-2.3) - Radiology Data Radiology results reviewed: Yes I reviewed the patient's radiology results. X-ray right hip shows subcapital fracture displaced. Chest x-ray shows cardiomegaly with improvement in pleural effusion and right lower lobe infiltrate compared with previous - EKG Data EKG attestation: Yes I reviewed and interpreted this EKG. EKG results narrative: EKG shows a rate of 91 left ventricular hypertrophy atrial fibrillation few PVCs Disposition Pt seen by [employer] LEAD/PA only: No Clinical Impression: Acute kidney injury superimposed on chronic kidney disease, History of lower limb amputation, Anticoagulant long-term use Fracture of hip Qualifiers: Encounter type: initial encounter Fracture type: closed Laterality: right Qualified Code(s): S72.001A - Fracture of unspecified part of neck of right femur, initial encounter for closed fracture Summary: After initial assessment studies none patient is discussed with Dr. Bhatt, orthopedist director community organization. He agreed to accept the patient in consult but hospitalist to admit. Discussed the case with Dr. Wade, the hospitalist who agreed to accept the patient for further care and evaluation. Disposition: Xfer As Inpt ([facility]) Condition: Fair Referrals: Sunny Nieves ARNP [Primary Care Provider] - Nino Bhatt MD [Physician] -
--- NOTE | 2018-04-28 20:44 | Internal Med History&Physical ---
Medical - H&P: HPI Patient information: Note initiated : 04/28/18 at 8:41 pm Service Date, if different from initiated Date: [] Patient: Tanvir Rubin 83 y/o M admitted on for Fall on Sat, R Hip Pain. Chief Complaint: [] History of present illness: Mr. Rubin is a 83 year old Mwith multiple medical issues presents to the ER after a fall, he notes he was at a wedding on saturday, he had a mechanical fall and sustained injury on the right hip. There was significant pain, but he tried to wait it out, his pain was not improving and therefore he came to the ER for further eval. 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 and since then has had difficulty in maintaining his balance. He denies any acute complaints or concerns His vitals were stable in the ER, was tachycaridc, EKG shows afib with rvr, labs show wbc 12.6, hb 10.2, lat 217, INR 2.3 Basic panel with Na 131, K 4.5, Creat 1.9, baseline 1.7, Glucose 154 CXR shows chr right middle and lower lobe atelectasis, sliglht improvement from before? EKG is unchanged from before HIp x ray shows right hip fracture Pt case was reviewed with Dr Bhatt who plans to operate on him tomorrow, medicine was asked to admit the patient due to extensive medical issues. All systems: reviewed and no additional remarkable complaints except as stated ( as per hpi) Medical - H&P: PMH Medical history: Medical History Sepsis (Acute) Pneumonia (Acute) CHF (congestive heart failure) (Chronic) Lactic acid acidosis (Acute) Acute kidney injury superimposed on chronic kidney disease (Acute) Chronic Kidney Disease (Chronic) History of ECG (Chronic 10/26/15) Anemia (Acute) Pneumonia (Acute) Septic shock (Acute) Atrial fibrillation (Chronic) Diabetes mellitus, type II (Chronic) Coronary atherosclerosis (Acute) Pulmonary embolism (Acute) Cardiomyopathy (Acute) TIA (transient ischemic attack) (Acute) Tobacco abuse (Acute) Tachycardia (Acute) Obstructive sleep apnea (Acute) Respiratory failure, chronic (Acute) Respiratory failure (Acute) Pulmonary collapse (Acute) Psychosis (Acute) Pleural effusion (Acute) Peripheral vascular disease (Acute) Paroxysmal supraventricular tachycardia (Acute) Osteoarthritis (Acute) Nocturia (Acute) longterm current use of antibiotics (Acute) Hypertension, essential (Acute) Hyperlipidemia (Acute) Finger fracture (Acute) Erectile dysfunction (Acute) Encephalopathy (Acute) Diastolic heart failure (Acute) Congestive heart failure (Acute) Chronic obstructive pulmonary disease (Chronic) Cachexia (Acute) Bladder outlet obstruction (Acute) Benign neoplasm (Acute) 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 (Acute) Alcohol withdrawal (Acute) Surgical history: Past Surgical History Status post arthroscopic surgery of right knee (Acute) History of aorto-femoral bypass (Acute) History of skin cancer (Acute) History of intraocular lens implant (Acute) History of tonsillectomy (Acute) History of inguinal hernia repair (Acute) Status post arthroscopic surgery of left knee (Acute) History of lower limb amputation (Acute) History of adenoidectomy (Acute) Pertinent family history: Family History mother Alzheimer's disease Unknown Asthma Essential hypertension Father Cardiovascular disease Medical - H&P: Meds Home Medications Medication Instructions Recorded Confirmed Type Ferrous Sulfate 325 mg PO ONCE 03/07/17 02/03/18 History cloNIDine HCL [Catapres] 0.2 mg PO BID 03/07/17 02/03/18 History Cetirizine HCl [All Day Allergy] 10 mg PO DAILY 10/07/17 02/03/18 History Finasteride [Proscar] 5 mg PO DAILY 10/07/17 02/03/18 History Multivit-Min/FA/Lycopen/Lutein 1 each PO DAILY 10/07/17 02/03/18 History [Adults 50 Plus Multivitamin Tb] Oxybutynin Chloride [Ditropan Xl] 5 mg PO TID 10/07/17 02/03/18 History Pravastatin [Pravachol] 40 mg PO HS 10/07/17 02/03/18 History Accu-Chek 1 each FS ACHS strip 10/09/17 02/03/18 Rx Metoprolol Succinate [Toprol Xl] 50 mg PO DAILY #30 tab.xl.24h 10/09/17 Rx Digoxin [Digitek] 125 mcg PO QDAY 02/03/18 02/03/18 History guaiFENesin [Mucinex] 600 mg PO 02/03/18 History Amoxicillin/Potassium Clav 500 mg PO BID #28 tab 02/04/18 Rx [Augmentin] Ciprofloxacin [Cipro] 250 mg PO BID #28 tab 02/04/18 Rx Ipratropium/Albuterol Sulfate 2 puff INH QID #3 inhaler 02/04/18 Rx [Combivent] Warfarin [Coumadin] 2 mg PO DAILY 02/04/18 02/04/18 History Allergies Allergy/AdvReac Type Severity Reaction Status Date / Time No Known Drug Allergies Allergy Verified 10/07/17 13:01 Medical - H&P: Exam - Constitutional Vitals: Temp Pulse Resp BP Pulse Ox 97.4 F 118 H 16 124/85 97 04/28/18 17:41 04/28/18 20:16 04/28/18 18:05 04/28/18 20:16 04/28/18 20:16 Exam: GENERAL: The patient is a well-developed, well-nourished in no apparent distress. Is alert and oriented x3. VITAL SIGNS: Reviewed and as noted elsewhere. HEENT: Head is normocephalic and atraumatic. Extraocular muscles are intact. Pupils are equal, round, and reactive to light. Nares appeared normal. Mouth appears any without lesions. Mucous membranes are moist. NECK: Normal to inspection, Supple, No lymphadenopathy or thyromegaly. LUNGS: Air entry absent right base, no wheezing or cracklez noted, pt speaking full sentences. HEART: irregular heart rate, tachycardic, no gallop, no rub, systolic murmur present mitral region. ABDOMEN: Soft, nontender, and nondistended. Positive bowel sounds. No hepatosplenomegaly was noted. EXTREMITIES: No cyanosis, clubbing, rash, lesions or edema. Right bka noted, NEUROLOGIC: Cranial nerves II through XII are grossly intact. Motor and Sensory System Grossly Intact PSYCHIATRIC: Normal affect, Normal Mood. Appropriate Behavior. SKIN: No ulceration or wounds noted, No jaundice, No rash noted. Medical - H&P: Reslt - Labs CBC & Chem 7: 04/28/18 18:26 04/28/18 18:26 Labs: Short CBC 04/28/18 Range/Units 18:26 WBC 12.6 H (4.5-11.0) K/mcL Hgb 10.2 L (13.5-16.5) g/dL Hct 30.6 L (41.0-55.0) % Plt Count 217 (140-440) K/mcL BMP 04/28/18 18:26 Sodium 137 Potassium 4.5 Chloride 101 Carbon Dioxide 23 BUN 42 H Creatinine 1.9 H Glucose 154 H Calcium 9.2 Liver Function 04/28/18 Range/Units 18:26 Total Bilirubin 0.9 (0.0-1.0) mg/dL AST 23 (0-37) U/l ALT 9 (0-40) U/l Alkaline Phosphatase 98 (39-117) U/L Albumin 3.3 (3.2-5.2) gm/dL Medical - H&P: A/P - Narrative A/P Narrative: A/P Right Hip fracture- Management per surgery Pre op eval- High risk for periop complications given extensive cardiac/ vascular history/ AGe/ Anticoagulation, will try to optimize risk factors as much as possible. Also has poor functional status. afib with RVR- resume home meds, rvr secondary to pain? Afib/chr anticoagulation- INR therapeutic, Plan for sx tomorrow, Give IV vit K, check inr in AM if high, give ffp and sx, will need therapeutic anticoagulation soon after surgeyy given hi/o arterial thrombus, tia, chf, and afib with high risk of embolus. CAD/CHF/PVD: No acute issues, will resume home meds as needed Acute on chr kidney disease: MOnitor renal function, avoid sandro op hypotension, gentle hydratio DM not on any meds as per pt, monitor glucose, ssi if glucose is high Right lung atelectasis/ endobronchial lesion- [id number] for same as per last discharge summary in february, not sure if bronchoscopy was done, no records of same in the chart. It seems pt was advised comfort care by the discharging provider. [facility] not sure if follows up with any local provider. USed to be with Dr Mayen, but last visit it seems is over a year ago, pt note he does not go to him any more get Chest ct without contrast to see if we can delinate any lesion. DVT coumadin with therapeutic inr, to be reversed, will need briding, post op FUll code Social History - Tobacco smoking status: Current some day smoker quit status: considering quitting counseling given: provider counseling - Alcohol alcohol intake frequency: holiday/special occasion only
[2018-04-28] MEDS ORDERED: FAMOTIDINE 20 MG TABLET PO SCH (21:00)
[2018-04-28] MEDS ORDERED: NALOXONE HCL 0.4 MG/ML VIAL IV PRN (21:35)
[2018-04-28] MEDS ORDERED: ONDANSETRON 4 MG/2 ML VIAL IV PRN (21:35)
[2018-04-28] MEDS ORDERED: PHYTONADIONE 2.5 MG in 0.9 % SODIUM CHLORIDE 50 ML IV ONE (21:35)
[2018-04-28] MEDS ORDERED: ACETAMINOPHEN 325 MG TABLET PO PRN (21:35)
[2018-04-28] MEDS ORDERED: oxyCODONE/APAP 5/325MG TABLET PO PRN (21:35)
[2018-04-28] MEDS ORDERED: 0.9 % SODIUM CHLORIDE 50 ML IV ONE (22:15)
[2018-04-28] MEDS ORDERED: PHYTONADIONE 10 MG/ML AMPUL ONE (22:18)
[2018-04-28] MEDS ORDERED: METOPROLOL TARTRATE 50 MG TABLET PO ONE (23:06)
[2018-04-28] MEDS ORDERED: METOPROLOL TARTRATE 50 MG TABLET ONE (23:16)
[2018-04-28] MEDS: 0.9 % SODIUM CHLORIDE 10 ML SYRINGE IV SCH (23:17)
[2018-04-29] MEDS: IPRATROPIUM/ALBUTEROL 3 ML AMPUL.NEB NEB SCH ×4 (02:34→18:52)
[2018-04-29] MEDS ORDERED: METOPROLOL TARTRATE 5 MG/5 ML VIAL IV PRN ×2 (04:04→12:25)
[2018-04-29] MEDS: 0.9 % SODIUM CHLORIDE 10 ML SYRINGE IV SCH ×3 (05:30→21:11)
[2018-04-29 05:32] LABS: Basophils # (Auto) 0 K/mcL (0.0-0.3); Basophils % (Auto) 0.2 % (0.0-2.0); Eosinophils # (Auto) 0.2 K/mcL (0.0-0.7); Eosinophils % (Auto) 1.4 % (0.0-7.0); Lymphocytes # (Auto) 1.3 K/mcL (1.5-4.8); Lymphocytes % (Auto) 11.5 % (15.5-49.0); Mean Cell Volume 93.1 fL (80.0-100.0); Mean Corpuscular HGB Conc 32.7 g/dL (31.0-36.0); Mean Corpuscular Hemoglobin 30.5 pg (26.0-34.0); Monocytes # (Auto) 1.5 K/mcL (0.1-0.9); Monocytes % (Auto) 12.9 % (1.0-12.0); Platelet Count 196 K/mcL (140-440); RBC 3.18 M/mcL (4.50-5.90); Red Cell Distribution Width 17.5 % (11.5-14.5)
[2018-04-29 05:59] LABS: ALT/SGPT 9 U/l (0-40); Albumin 3.1 gm/dL (3.2-5.2); Albumin/Globulin Ratio 0.8 (1.0-2.3); Alkaline Phosphatase 88 U/L (39-117); Bilirubin,Direct < 0.2 mg/dL (0.0-0.3); Blood Urea Nitrogen 39 mg/dl (8-23); Gamma Glutamyl Transpeptidase 11 U/L (8-61); Uric Acid 7.8 mg/dL (2.5-8.0)
--- NOTE | 2018-04-29 07:00 | Cat Scan Report ---
CLINICAL INFORMATION: Chronic, complete right lower and middle lobe atelectasis on plain film COMPARISON: 03/11/[address] and plain film 04/28/2018 TECHNIQUE: 0.625 mm axial slices were obtained from the lung apices through the bases without intravenous contrast. 2.5 mm Sagittal, coronal and axial reformatted images were processed and reviewed at bone, lung and soft tissue windows. 7 mm axial MIP images were also reconstructed to optimize pulmonary nodule detection.The exam was performed using radiation dose optimization techniques including, but not limited to, automated exposure control, adjustment of the mA and/or kV according to patient size and use of iterative reconstruction technique. FINDINGS: Pulmonary parenchymal windows show complete chronic atelectasis of the right middle and lower lobes. There is a large soft tissue mass filling the bronchus intermedius, right lower and middle lobe bronchi with a maximal dimension of 5.5 cm. The parenchymal density/configuration within the atelectatic right middle and lower lobes is rounded and lower attenuation: suspect the soft tissue mass has infiltrated the collapsed parenchyma.. There is moderate centrilobular emphysema changes featuring chronic bronchitis, elevated lung volumes and multiple bullae. A small right pleural effusion is noted. Mediastinal windows show multiple mildly enlarged lymph nodes in the pericarinal and right hilar region which may be either be reactive or metastatic. Ectatic thoracic aorta again noted with mild aneurysmal enlargement of the ascending segment (4.5 cm diameter). This is stable. The central pulmonary arteries are enlarged - main pulmonary diameter 3.8 cm and compatible pulmonary hypertension. The heart is markedly enlarged scattered calcific plaque in the coronary arteries and also calcification seen within both the mitral and aortic valves. Images should the abdomen show a 13 mm low-attenuation lesion in the right hepatic lobe (image 131 was not seen on the abdomen CT from 03/10/2017 potentially indicate a metastases. The adrenal glands are not visualized. Spleen unremarkable. Bone windows show degenerative change which is stable IMPRESSION: 1. Large endobronchial soft tissue mass filling the bronchus intermedius and right lower/middle lobe bronchi. The mass has resulted in complete right middle lobe and lower lobe collapse. The parenchyma has a rounded appearance suspicious for tumor infiltration. Consider either CT-guided percutaneous biopsy or pulmonary referral for endobronchial examination/biopsy. Mildly enlarged lymph nodes in the right hilum and lower mediastinum are either reactive or metastatic. 13 mm low-attenuation lesion in the right hepatic lobe, not seen on previous abdominal CT, may potentially represent metastases, however there are no definite distant metastases 2. Moderate/severe centrilobular emphysema 3. Marked cardiomegaly with biatrial enlargement - stable 4. 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 Enlargement of the pulmonary arteries compatible pulmonary hypertension related to centrilobular emphysema Interpreted and Authenticated by: Topher Mcfarlane 04/29/18
[2018-04-29] MEDS: METOPROLOL TARTRATE 50 MG TABLET PO SCH ×4 (08:27→21:27)
--- NOTE | 2018-04-29 11:58 | Internal Med Progress Note ---
Medical - PN: Subj Patient information: Note initiated : 04/29/18 at 11:56 am Service Date, if different from initiated Date: [] Patient: Tanvir Rubin 83 y/o M admitted on 04/28/18 for Fall on Sat, R Hip Pain. Chief Complaint: [] Interval history: Mr. Rubin is a 83 year old Mwith multiple medical issues presents to the ER after a fall, he notes he was at a wedding on saturday, he had a mechanical fall and sustained injury on the right hip. There was significant pain, but he tried to wait it out, his pain was not improving and therefore he came to the ER for further eval. 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 and since then has had difficulty in maintaining his balance. He denies any acute complaints or concerns His vitals were stable in the ER, was tachycaridc, EKG shows afib with rvr, labs show wbc 12.6, hb 10.2, lat 217, INR 2.3 Basic panel with Na 131, K 4.5, Creat 1.9, baseline 1.7, Glucose 154 CXR shows chr right middle and lower lobe atelectasis, sliglht improvement from before? EKG is unchanged from before HIp x ray shows right hip fracture Pt case was reviewed with Dr Bhatt who plans to operate on him tomorrow, medicine was asked to admit the patient due to extensive medical issues. 04/29 Pt seen examined, doing well this AM, afib with rvr present, but pt has no complaints or concerns. Dr Bhatt talked with the patients edybenja who does not want pt to have surgery, pt too is not keen on the surgery. He is full code , however Dr Bhatt noted that patient daughter would like pt to be comfort care The patient does have a likely malignant neoplasm of the lung, for which he was advised comfort care in february. Laney ne route to hospital. will discuss once she is here. pain is well controlled. xfer to med surg status. Pertinent ROS: Denies headache, dizziness Denies chest pain, palpitations Denies cough or shortness of breath Denies abdominal pain, nausea or vomiting. - Constitutional Vitals: Vital Signs Temp Pulse Resp BP Pulse Ox 98.5 F 101 H 19 145/99 98 04/29/18 07:54 04/29/18 07:54 04/29/18 07:54 04/29/18 07:54 04/29/18 07:54 Period Temp Pulse Resp BP Sys/Sherman Pulse Ox Last 24 Hr 97.4 F-98.9 F 48-129 16-20 111-182/73-115 91-100 Intake and Output 04/28/18 04/29/18 04/29/18 21:59 05:59 13:59 Intake Total 400 / 400 540 / 540 Output Total 1 / 1 Balance 400 / 400 -1 / -1 540 / 540 Weight 154 lb 12.8 oz Intake & Output: Intake & Output 04/28/18 04/29/18 04/29/18 21:59 05:59 13:59 Intake Total 400 / 400 540 / 540 Output Total 1 / 1 Balance 400 / 400 -1 / -1 540 / 540 Weight 154 lb 12.8 oz Intake: IV 400 / 400 Sodium Chloride 0.9% 1,000 ml @ 400 / 400 Wide Open IV BOLUS ONE Rx#: [id number] Oral 540 / 540 Output: # of times incontinent of urine Other: Meal Breakfast Percent of Meal Consumed 80% Feeding Ability Assist with Tray Set Up Exam: Constitutional; Afebrile, cooperative, alert, not in distress. Eyes- No icterus, , No periorbital swelling Ears- Ext ear normal, hearing normal to conversation. Neck- Midline trachea, supple Respiratory system: Air Entry equal on both sides, No crackles or wheezing, no rhonchi. CVS- Rate tachycardic, rhythm irregular, S1,S2 heard, no gallop, no rub. Abdomen- Soft nontender abdomen, no organomegaly, no tenderness, no guarding or rigidity, OVEN PRESS TENDER- AOOx2, moving all extremities, no gross focal deficit noted. Medical - PN: Obj Da - Labs CBC & Chem 7: 04/29/18 03:45 04/29/18 03:45 Labs: Abnormal Lab Results 04/29/18 04/29/18 04/29/18 03:45 03:45 03:45 WBC 11.4 H RBC 3.18 L Hgb 9.7 L Hct 29.6 L RDW 17.5 H Gran % Lymph % (Auto) 11.5 L [place] % (Auto) 12.9 H Gran # 8.4 H Lymph # (Auto) 1.3 L [place] # (Auto) 1.5 H PT 21.4 H INR 1.8 H BUN 39 H Creatinine 1.6 H Glucose 131 H Lactate Dehydrogenase 258 H Albumin 3.1 L Globulin 4.1 H Albumin/Globulin Ratio 0.8 L 04/28/18 04/28/18 04/28/18 18:26 18:26 18:26 WBC 12.6 H RBC 3.37 L Hgb 10.2 L Hct 30.6 L RDW 16.6 H Gran % 80.4 H Lymph % (Auto) 7.4 L [place] % (Auto) Gran # 10.1 H Lymph # (Auto) 0.9 L [place] # (Auto) 1.3 H PT 25.9 H INR 2.3 H BUN 42 H Creatinine 1.9 H Glucose 154 H Lactate Dehydrogenase Albumin Globulin 4.4 H Albumin/Globulin Ratio 0.8 L Meds: Medications Acetaminophen (Tylenol) 650 mg PO Q6HP PRN PRN Reason: PAIN/FEVER > 101 Albuterol/Ipratropium (Duoneb) 3 ml NEB Q6HRT [facility] Last Admin: 04/29/18 07:24 Dose: 3 ml Digoxin (Lanoxin) 125 mcg PO DAILY@1400 [facility] Famotidine (Pepcid) 20 mg PO [facility] Last Admin: 04/28/18 23:16 Dose: 20 mg Metoprolol Tartrate (Lopressor) 5 mg IV Q4HP PRN PRN Reason: Tachyarrhythmias Last Admin: 04/29/18 08:57 Dose: 5 mg Metoprolol Tartrate (Lopressor) 50 mg PO BID [facility] Last Admin: 04/29/18 08:27 Dose: Not Given Morphine Sulfate (Morphine) 2 mg IV Q2HP PRN PRN Reason: Pain Last Admin: 04/29/18 08:57 Dose: 2 mg Naloxone HCl (Narcan) 0.1 mg IV Q2MIN PRN PRN Reason: Opiate Reversal Ondansetron HCl (Zofran) 4 mg IV Q4HP PRN PRN Reason: Nausea And Vomiting Oxycodone/Acetaminophen (Percocet 5-325 Mg) 1 tab PO Q4HP PRN PRN Reason: PAIN LEVEL 3-6 Sodium Chloride (Saline Flush) 10 ml IV Q8 [facility] Last Admin: 04/29/18 05:30 Dose: 10 ml Medical - PN: A/P - Time Spent With Patient Total time spent is greater than 50% in coordination of care (as documented) at patient's floor/unit and/or counseling patient: - Narrative A/P Narrative: A/P Right Hip fracture- Non operative management, pt and family do not wish for sx, wish comfort care 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 afib with RVR- resume home meds, metoprolol 50 bid, prn IV metoprolol as needed , no longer needs cardiac meds Afib/chr anticoagulation-INR sub therapetuci, on lovenox for dvt prophylaxis, will need to reconsider same given plan for comfort care CAD/CHF/PVD: No acute issues, will resume home meds as needed, and verified. Acute on chr kidney disease: creat improved to 1.6 DM not on any meds as per pt, monitor glucose, ssi if glucose is high Right lung atelectasis- secondary to endobronchial mass. DVT on hep FUll code for now, but planning on becoming comfort care as per conversations of Dr Bhatt with the daugther, will discuss with the pt and daugther once here.
[2018-04-29] MEDS ORDERED: ONDANSETRON 4 MG/2 ML VIAL IV PRN (12:25)
[2018-04-29] MEDS ORDERED: NALOXONE HCL 0.4 MG/ML VIAL IV PRN (12:25)
[2018-04-29] MEDS ORDERED: ACETAMINOPHEN 325 MG TABLET PO PRN (12:25)
[2018-04-29] MEDS ORDERED: DIGOXIN 125 MCG TABLET PO SCH (14:00)
[2018-04-29] MEDS: ENOXAPARIN 40 MG/0.4 ML SYRINGE SQ SCH (14:12)
[2018-04-29] MEDS: DIGOXIN 125 MCG TABLET PO SCH (14:13)
[2018-04-29] MEDS ORDERED: guaiFENesin 600 MG TAB.SR.12H PO PRN (16:25)
[2018-04-29] MEDS: LISINOPRIL 5 MG TABLET PO SCH (16:41)
[2018-04-29] MEDS: cloNIDine HCL 0.1 MG TABLET PO SCH ×2 (16:41→21:08)
[2018-04-29] MEDS ORDERED: WARFARIN 5 MG TABLET PO ONE (17:00)
[2018-04-29] MEDS: oxyCODONE/APAP 5/325MG TABLET PO PRN ×2 (17:43→23:43)
[2018-04-29] MEDS: FAMOTIDINE 20 MG TABLET PO SCH ×2 (21:09→21:26)
[2018-04-29] MEDS: SIMVASTATIN 20 MG TABLET PO SCH ×2 (21:10→21:27)
[2018-04-29] MEDS: OXYBUTYNIN CHLORIDE 5 MG TABLET PO SCH ×2 (21:11→21:26)
[2018-04-30] MEDS: IPRATROPIUM/ALBUTEROL 3 ML AMPUL.NEB NEB SCH ×4 (01:19→18:53)
[2018-04-30 05:53] LABS: Basophils # (Auto) 0 K/mcL (0.0-0.3); Basophils % (Auto) 0.2 % (0.0-2.0); Eosinophils # (Auto) 0.2 K/mcL (0.0-0.7); Granulocytes % (Auto) 68.9 % (38.0-78.0); Lymphocytes # (Auto) 1.4 K/mcL (1.5-4.8); Lymphocytes % (Auto) 15.3 % (15.5-49.0); Mean Cell Volume 93.9 fL (80.0-100.0); Mean Corpuscular HGB Conc 33.1 g/dL (31.0-36.0); Mean Corpuscular Hemoglobin 31.1 pg (26.0-34.0); Monocytes # (Auto) 1.3 K/mcL (0.1-0.9); Monocytes % (Auto) 13.6 % (1.0-12.0); Platelet Count 194 K/mcL (140-440); RBC 2.93 M/mcL (4.50-5.90); Red Cell Distribution Width 16.9 % (11.5-14.5)
[2018-04-30 06:02] LABS: ALT/SGPT 7 U/l (0-40); Albumin/Globulin Ratio 0.8 (1.0-2.3); Alkaline Phosphatase 79 U/L (39-117); Bilirubin,Direct < 0.2 mg/dL (0.0-0.3); Blood Urea Nitrogen 38 mg/dl (8-23); Gamma Glutamyl Transpeptidase 10 U/L (8-61); Uric Acid 7.9 mg/dL (2.5-8.0)
[2018-04-30] MEDS: 0.9 % SODIUM CHLORIDE 10 ML SYRINGE IV SCH ×3 (06:34→20:15)
[2018-04-30] MEDS: FINASTERIDE 5 MG TABLET PO SCH (08:21)
[2018-04-30] MEDS: LISINOPRIL 5 MG TABLET PO SCH (08:21)
[2018-04-30] MEDS: OXYBUTYNIN CHLORIDE 5 MG TABLET PO SCH ×3 (08:21→20:14)
[2018-04-30] MEDS: MULTIVIT,THER IRON,CA,FA & MIN 1 TABLET PO SCH (08:21)
[2018-04-30] MEDS: METOPROLOL TARTRATE 50 MG TABLET PO SCH ×2 (08:22→20:14)
[2018-04-30] MEDS: ENOXAPARIN 40 MG/0.4 ML SYRINGE SQ SCH (08:22)
[2018-04-30] MEDS: cloNIDine HCL 0.1 MG TABLET PO SCH ×2 (08:22→20:15)
[2018-04-30] MEDS ORDERED: LEVOFLOXACIN 750 MG/150 ML BAG IV ONE (11:07)
--- NOTE | 2018-04-30 11:39 | XRay Report ---
CLINICAL INFORMATION: Fever COMPARISON: 04/28/2018 FINDINGS: Marked cardiomegaly is unchanged. Ectatic thoracic aorta again noted - the remaining mediastinum and pulmonary vessels are normal. Dense consolidated atelectasis of the right middle and lower lobes with moderate right pleural effusion is unchanged. The remaining lungs are clear. IMPRESSION: Complete densely consolidated right middle and lower lobe atelectasis and moderate right pleural effusion stable. On recent chest CT, there is extensive endobronchial mass infiltrating the bronchi lumen - suggestive pulmonary referral for bronchoscopy Interpreted and Authenticated by: Topher Mcfarlane 04/30/18
[2018-04-30] MEDS ORDERED: LEVOFLOXACIN 750 MG/150 ML BAG IV SCH (12:00)
[2018-04-30 12:45] LABS: Appearance,Urine HAZY; Bacteria,Urine 0 /hpf (0); Bilirubin,Urine NEG (NEG); Color,Urine YELLOW; Glucose,Urine (UA) NEGATIVE (NEG); Leukocyte Esterase,Urine 25 /uL (NEG); Protein,Urine NEG (NEG); Specific Gravity,Urine 1.016 (1.000-1.035); Urine Blood NEG mg/dL (<0.03); Urine Hyaline Cast 1 /lpf (0-2); Urine RBC 1 /hpf (0-1); Urine Squamous Epithelial Cell 1 /hpf (0-4); Urine WBC < 1 /hpf (0-4); Urobilinogen,Urine NEG (NEG)
--- NOTE | 2018-04-30 12:51 | Internal Med Progress Note ---
Medical - PN: Subj Patient information: Note initiated : 04/30/18 at 12:46 pm Service Date, if different from initiated Date: [] Patient: Tanvir Rubin 83 y/o M admitted on 04/28/18 for Fall on Sat, R Hip Pain. Chief Complaint: [] Interval history: Mr. Rubin is a 83 year old Mwith multiple medical issues presents to the ER after a fall, he notes he was at a wedding on saturday, he had a mechanical fall and sustained injury on the right hip. There was significant pain, but he tried to wait it out, his pain was not improving and therefore he came to the ER for further eval. 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 and since then has had difficulty in maintaining his balance. He denies any acute complaints or concerns His vitals were stable in the ER, was tachycaridc, EKG shows afib with rvr, labs show wbc 12.6, hb 10.2, lat 217, INR 2.3 Basic panel with Na 131, K 4.5, Creat 1.9, baseline 1.7, Glucose 154 CXR shows chr right middle and lower lobe atelectasis, sliglht improvement from before? EKG is unchanged from before HIp x ray shows right hip fracture Pt case was reviewed with Dr Bhatt who plans to operate on him tomorrow, medicine was asked to admit the patient due to extensive medical issues. 04/29 Pt seen examined, doing well this AM, afib with rvr present, but pt has no complaints or concerns. Dr Bhatt talked with the patients christin who does not want pt to have surgery, pt too is not keen on the surgery. He is full code , however Dr Bhatt noted that patient daughter would like pt to be comfort care The patient does have a likely malignant neoplasm of the lung, for which he was advised comfort care in february. Christin ne route to hospital. will discuss once she is here. pain is well controlled. xfer to med surg status. 04/30 Pt seen examined, no acute overnight events noted low grade temp this AM pt otherwise has no complaints, only pain during movement or transfers otherwise no pain reported I reviewed again with the patient his wishes, he wishes to be full code, he does not wish the fracture to be fixed, nor does he wish the lung cancer to be evaluated or treated I spoke with the darosether who is the poa, who notes she wants to respect the patients wishes, and does wish for DNR and will make the choice when the patient is unable to decide. AT this time she understands he is a full code patient She is aware of the overall poor prognosis of the patient as well as the fact taht if he were to code/ have cardiac arrest, he will end on a ventilator for his life. She also is aware that the patients overall prognosis is poor , she is declining hospice care as this would mean she cannot bring the patient back to the hospital for evaluation and treatment of infections. She would like his infections treated as long as possible and will allow natur to take its course. Pertinent ROS: Denies headache, dizziness Denies chest pain, palpitations Denies cough or shortness of breath Denies abdominal pain, nausea or vomiting. - Constitutional Vitals: Vital Signs Temp Pulse Resp BP Pulse Ox 99.5 F H 81 26 H 132/80 94 04/30/18 12:00 04/30/18 12:00 04/30/18 12:00 04/30/18 12:00 04/30/18 12:00 Period Temp Pulse Resp BP Sys/Sherman Pulse Ox Last 24 Hr 98.1 F-99.8 F 58-110 18-26 130-198/50-90 88-97 Intake and Output 04/29/18 04/30/18 04/30/18 21:59 05:59 13:59 Intake Total 50 / 50 630 / 630 Output Total Balance -2 / -2 49 598 / 598 Weight 152 lb Intake & Output: Intake & Output 04/29/18 04/30/18 04/30/18 21:59 05:59 13:59 Intake Total 50 / 50 630 / 630 Output Total Balance -2 / -2 49 49 598 / 598 Weight 152 lb Intake: Oral 50 / 50 630 / 630 Output: Void Amount 30 / 30 # of times incontinent of urine Other: Meal Dinner Breakfast Percent of Meal Consumed 75% 50% Feeding Ability Independent # Voids 2 Exam: Constitutional; Afebrile, cooperative, alert, not in distress. Eyes- No icterus, , No periorbital swelling Ears- Ext ear normal, hearing normal to conversation. Neck- Midline trachea, supple Respiratory system: Air Entry decreased right base, no wheezing no rhonchi, speaking full sentences, appears tachypenic, but as per family is at baseline. CVS- Rate rhythm irregular, S1,S2 heard, no gallop, no rub. Abdomen- Soft nontender abdomen, no organomegaly, no tenderness, no guarding or rigidity, WET MIXER- AOOx2, moving all extremities, no gross focal deficit noted. Medical - PN: Obj Da - Labs CBC & Chem 7: 04/30/18 04:05 04/30/18 04:05 Labs: Abnormal Lab Results 04/30/18 04/30/18 04/30/18 11:50 04:05 04:05 WBC RBC Hgb Hct RDW Gran % Lymph % (Auto) [place] % (Auto) Gran # Lymph # (Auto) [place] # (Auto) PT 16.1 H INR 1.3 H BUN 38 H Creatinine 1.5 H Glucose 111 H Lactate Dehydrogenase Albumin 3.0 L Globulin 3.9 H Albumin/Globulin Ratio 0.8 L Ur Leukocyte Esterase 25 A 04/30/18 04/29/18 04/29/18 04:05 03:45 03:45 WBC RBC 2.93 L Hgb 9.1 L Hct 27.5 L RDW 16.9 H Gran % Lymph % (Auto) 15.3 L [place] % (Auto) 13.6 H Gran # Lymph # (Auto) 1.4 L [place] # (Auto) 1.3 H PT 21.4 H INR 1.8 H BUN 39 H Creatinine 1.6 H Glucose 131 H Lactate Dehydrogenase 258 H Albumin 3.1 L Globulin 4.1 H Albumin/Globulin Ratio 0.8 L Ur Leukocyte Esterase 04/29/18 04/28/18 04/28/18 03:45 18:26 18:26 WBC 11.4 H RBC 3.18 L Hgb 9.7 L Hct 29.6 L RDW 17.5 H Gran % Lymph % (Auto) 11.5 L [place] % (Auto) 12.9 H Gran # 8.4 H Lymph # (Auto) 1.3 L [place] # (Auto) 1.5 H PT 25.9 H INR 2.3 H BUN 42 H Creatinine 1.9 H Glucose 154 H Lactate Dehydrogenase Albumin Globulin 4.4 H Albumin/Globulin Ratio 0.8 L Ur Leukocyte Esterase 04/28/18 18:26 WBC 12.6 H RBC 3.37 L Hgb 10.2 L Hct 30.6 L RDW 16.6 H Gran % 80.4 H Lymph % (Auto) 7.4 L [place] % (Auto) Gran # 10.1 H Lymph # (Auto) 0.9 L [place] # (Auto) 1.3 H PT INR BUN Creatinine Glucose Lactate Dehydrogenase Albumin Globulin Albumin/Globulin Ratio Ur Leukocyte Esterase Meds: Medications Acetaminophen (Tylenol) 650 mg PO Q6HP PRN PRN Reason: PAIN/FEVER > 101 Last Admin: 04/30/18 08:28 Dose: 650 mg Albuterol/Ipratropium (Duoneb) 3 ml NEB Q6HRT [facility] Last Admin: 04/30/18 07:40 Dose: Not Given Clonidine HCl (Catapres) 0.2 mg PO BID [facility] Last Admin: 04/30/18 08:22 Dose: 0.2 mg Digoxin (Lanoxin) 125 mcg PO DAILY@1400 [facility] Last Admin: 04/29/18 14:13 Dose: 125 mcg Enoxaparin Sodium (Lovenox) 40 mg SQ DAILY [facility] Last Admin: 04/30/18 08:22 Dose: 40 mg Famotidine (Pepcid) 20 mg PO HS [facility] Last Admin: 04/29/18 21:26 Dose: Not Given Finasteride (Proscar) 5 mg PO DAILY [facility] Last Admin: 04/30/18 08:21 Dose: 5 mg Guaifenesin (Mucinex) 600 mg PO Q8HP PRN PRN Reason: Cough Levofloxacin (Levaquin) 750 mg in 150 mls @ 100 mls/hr IV Q48H [facility] Last Admin: 04/30/18 12:07 Dose: 100 mls/hr Iron Carb/Multivit/Obstetrics Gyn Physician/Folic Acid (Multivitamin W/Minerals) 1 tab PO DAILY [facility] Last Admin: 04/30/18 08:21 Dose: 1 tab Lisinopril (Zestril) 5 mg PO DAILY [facility] Last Admin: 04/30/18 08:21 Dose: 5 mg Metoprolol Tartrate (Lopressor) 5 mg IV Q4HP PRN PRN Reason: Tachyarrhythmias Metoprolol Tartrate (Lopressor) 50 mg PO BID [facility] Last Admin: 04/30/18 08:22 Dose: 50 mg Morphine Sulfate (Morphine) 2 mg IV Q2HP PRN PRN Reason: Pain Naloxone HCl (Narcan) 0.1 mg IV Q2MIN PRN PRN Reason: Opiate Reversal Ondansetron HCl (Zofran) 4 mg IV Q4HP PRN PRN Reason: Nausea And Vomiting Oxybutynin Chloride (Ditropan) 5 mg PO TID [facility] Last Admin: 04/30/18 08:21 Dose: 5 mg Oxycodone/Acetaminophen (Percocet 5-325 Mg) 1 tab PO Q4HP PRN PRN Reason: PAIN LEVEL 3-6 Last Admin: 04/29/18 23:43 Dose: 1 tab Simvastatin (Zocor) 20 mg PO HS [facility] Last Admin: 04/29/18 21:27 Dose: Not Given Sodium Chloride (Saline Flush) 10 ml IV Q8 [facility] Last Admin: 04/30/18 06:34 Dose: 10 ml Warfarin Sodium (Coumadin Per Pharmacy) 1 order PO UD [facility] Medical - PN: A/P - Time Spent With Patient Total time spent is greater than 50% in coordination of care (as documented) at patient's floor/unit and/or counseling patient: - Narrative A/P Narrative: A/P Right Hip fracture- Non operative management, pt and family do not wish for sx, 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 afib with RVR- resume home meds, metoprolol 50 bid, prn IV metoprolol as needed , no longer needs cardiac meds, rate controlled with present regime. Afib/chr anticoagulation-INR sub therapeutic, Coumadin resumed, pt/ family wish to continue his meds CAD/CHF/PVD: No acute issues, will resume home meds Acute on chr kidney disease: creat improved to 1.5 DM not on any meds as per pt, monitor glucose, ssi if glucose is high Right lung atelectasis- secondary to endobronchial mass. fever- mildly elevated procalcitonin, start on levofloxacin for possible post obstructive pna. DVT on hep FUll code for now.
[2018-04-30] MEDS ORDERED: ACETAMINOPHEN 325 MG TABLET PO SCH (13:00)
[2018-04-30] MEDS: ACETAMINOPHEN 500 MG TABLET PO SCH ×2 (13:40→21:41)
[2018-04-30] MEDS: DIGOXIN 125 MCG TABLET PO SCH (13:40)
[2018-04-30] MEDS ORDERED: WARFARIN 3 MG TABLET PO ONE (14:00)
[2018-04-30] MEDS ORDERED: DIGOXIN 125 MCG TABLET PO SCH (14:00)
[2018-04-30] MEDS: NICOTINE 21 MG PATCH TOPICAL SCH (18:03)
[2018-04-30] MEDS ORDERED: NICOTINE 21 MG PATCH ONE (18:05)
[2018-04-30] MEDS: oxyCODONE HCL 5 MG TABLET PO PRN (18:10)
[2018-04-30] MEDS: SIMVASTATIN 20 MG TABLET PO SCH (20:14)
[2018-04-30] MEDS: FAMOTIDINE 20 MG TABLET PO SCH (20:14)
[2018-05-01] MEDS: IPRATROPIUM/ALBUTEROL 3 ML AMPUL.NEB NEB SCH ×3 (00:39→12:52)
[2018-05-01] MEDS: oxyCODONE HCL 5 MG TABLET PO PRN ×2 (00:53→08:58)
[2018-05-01 05:23] LABS: Basophils # (Auto) 0 K/mcL (0.0-0.3); Basophils % (Auto) 0.4 % (0.0-2.0); Eosinophils # (Auto) 0.2 K/mcL (0.0-0.7); Eosinophils % (Auto) 2.8 % (0.0-7.0); Granulocytes % (Auto) 63.7 % (38.0-78.0); Lymphocytes # (Auto) 1.3 K/mcL (1.5-4.8); Mean Cell Volume 94.3 fL (80.0-100.0); Mean Corpuscular HGB Conc 32.7 g/dL (31.0-36.0); Mean Corpuscular Hemoglobin 30.8 pg (26.0-34.0); Monocytes # (Auto) 1.4 K/mcL (0.1-0.9); Monocytes % (Auto) 17.1 % (1.0-12.0); Platelet Count 212 K/mcL (140-440); Red Cell Distribution Width 17.3 % (11.5-14.5)
[2018-05-01 05:37] LABS: ALT/SGPT 7 U/l (0-40); Albumin 2.9 gm/dL (3.2-5.2); Albumin/Globulin Ratio 0.8 (1.0-2.3); Alkaline Phosphatase 75 U/L (39-117); Bilirubin,Direct < 0.2 mg/dL (0.0-0.3); Blood Urea Nitrogen 39 mg/dl (8-23); Gamma Glutamyl Transpeptidase 9 U/L (8-61); Uric Acid 7.3 mg/dL (2.5-8.0)
[2018-05-01] MEDS: 0.9 % SODIUM CHLORIDE 10 ML SYRINGE IV SCH (06:15)
[2018-05-01] MEDS: ACETAMINOPHEN 500 MG TABLET PO SCH ×2 (06:15→13:53)
[2018-05-01] MEDS: OXYBUTYNIN CHLORIDE 5 MG TABLET PO SCH (08:54)
[2018-05-01] MEDS: METOPROLOL TARTRATE 50 MG TABLET PO SCH (08:54)
[2018-05-01] MEDS: MULTIVIT,THER IRON,CA,FA & MIN 1 TABLET PO SCH (08:54)
[2018-05-01] MEDS: FINASTERIDE 5 MG TABLET PO SCH (08:54)
[2018-05-01] MEDS: cloNIDine HCL 0.1 MG TABLET PO SCH (08:54)
[2018-05-01] MEDS: LISINOPRIL 5 MG TABLET PO SCH (08:54)
[2018-05-01] MEDS: ENOXAPARIN 40 MG/0.4 ML SYRINGE SQ SCH (08:54)
[2018-05-01] MEDS: NICOTINE 21 MG PATCH TOPICAL SCH (11:33)
--- NOTE | 2018-05-01 11:45 | Discharge Summary ---
Medical - DS: Prov Patient information: Note initiated : 05/01/18 at 11:39 am Service Date, if different from initiated Date: [] Patient: Tanvir Rubin 83 y/o M admitted on 04/28/18 for Fall on Sat, R Hip Pain. Chief Complaint: [] Date of admission: 04/28/18 21:31 Discharge date: 05/01/18 Primary care physician: Sunny Nieves Admitting clinician: Brice Wade Consults: 04/28/18 19:47 Consult to Physician [CONS] Stat Comment: Consulting Provider: Nino Bhatt Reason For Exam: Physician to Consult 04/28/18 19:48 Consult to Physician [CONS] Stat Comment: Consulting Provider: Brice Wade Reason For Exam: Physician to Consult Discharging clinician: Brice Wade Medical - DS: Meds - Discharge Medications Prescriptions: Levofloxacin [Levaquin] 750 mg PO Q48H #5 tab Active and Home Medications: Home Medications Ferrous Sulfate 325 mg PO BIDCC 03/07/17 [History Confirmed 04/29/18 Last Taken 02/03/18 08:00] cloNIDine HCL [Catapres] 0.2 mg PO BID 03/07/17 [History Confirmed 04/29/18 Last Taken 02/03/18 10:30] Cetirizine HCl [All Day Allergy] 10 mg PO HSP PRN 10/07/17 [History Confirmed Last Taken 01/27/18 10:00] Finasteride [Proscar] 5 mg PO DAILY 10/07/17 [History Confirmed 04/29/18 Last Taken 01/27/18 10:00] Multivit-Min/FA/Lycopen/Lutein [Adults 50 Plus Multivitamin Tb] 1 each PO DAILY 10/07/17 [History Confirmed 04/29/18 Last Taken 02/03/18 10:30] Oxybutynin Chloride [Ditropan Xl] 5 mg PO TID 10/07/17 [History Confirmed Last Taken 02/03/18 10:30] Pravastatin [Pravachol] 40 mg PO HS 10/07/17 [History Confirmed 04/29/18 Last Taken 01/27/18 10:00] Accu-Chek 1 each FS ACHS strip 10/09/17 [Rx Confirmed 02/03/18 Last Taken Unknown] Digoxin [Digitek] 125 mcg PO DAILY@1400 02/03/18 [History Confirmed 04/29/18 Last Taken 02/03/18 10:30] guaiFENesin [Mucinex] 600 mg PO Q8HP PRN 02/03/18 [History Confirmed 04/29/18 Last Taken Unknown] Warfarin [Coumadin] 5 mg PO DAILY 02/04/18 [History Confirmed 04/29/18 Last Taken 02/03/18 10:00] Ipratropium [place] [Atrovent Hfa] 2 puff INH QIDP PRN 04/29/18 [History Confirmed 04/29/18 Last Taken Unknown] Ipratropium/Albuterol [Duoneb] 3 ml NEB QIDP 04/29/18 [History Confirmed Last Taken Unknown] Lisinopril [Zestril] 5 mg PO DAILY 04/29/18 [History Confirmed 04/29/18 Last Taken Unknown] Metoprolol Tartrate [Lopressor] 50 mg PO DAILY 04/29/18 [History Confirmed 04/29 Last Taken Unknown] Medical - DS: Hosp Hospital course: Mr. Rubin is a 83 year old Mwith multiple medical issues presents to the ER after a fall, he notes he was at a wedding on Saturday, he had a mechanical fall and sustained injury on the right hip. There was significant pain, but he tried to wait it out, his pain was not improving and therefore he came to the ER for further eval. 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 and since then has had difficulty in maintaining his balance. His vitals were stable in the ER, was tachycaridc, EKG shows afib with rvr, labs show wbc 12.6, hb 10.2, lat 217, INR 2.3 Basic panel with Na 131, K 4.5, Creat 1.9, baseline 1.7, Glucose 154 CXR shows chr right middle and lower lobe atelectasis,. EKG is unchanged from before HIp x ray shows right hip fracture Pt case was reviewed with Dr Bhatt who plans to operate on him tomorrow, medicine was asked to admit the patient due to extensive medical issues. Hip fracture- Initially plan was for surgery, but given that the patient has overall poor prognosis, and that he is non weight bearing on the right foot, the family and the patient in consultation with Dr Bhatt decided against operative intervention, would like to let it heal by it self Fever- During the hospital stay the patient had a low grade fever, CXR possible post obstruction pna, ua although was not very impressive, his urine culture did grow proteus, was started on levofloxacin with good clinical response, pt will be discharged on oral levofloxacin for 750mg q48 hrs, total 10 days of treatment. Post obstructive pna/ Endobronchial lesion- Daughter who is poa aware this is mostly cancer, in the past and now they have opted not to persue further treatment for same. Wish for palliative c are. Want treatment for infections, but does not want any aggressive interventions. Educated at length with regards to nature of the disease process and likely francisco that there will be a progressive decline from here, daugther understands this, I am not sure if patient has insight in the disease process, wants to go home and try alovera juice which he hopes will cure this possible cancer. He and the family have declined the SNF placement option, daughter wants to take the patient back home. Will d/c home on antibiotics, no changes made to chr home medication list, levofloxacin added for 10 days treatment At this time given his multiple medical comorbidities, recent hip fracture, likely lung cancer and refusal to use hospice services hospice, the patient is a very high probability for recurrent admissions to the hospital. He overall has very poor prognosis, and family does understand this. Discharge diagnosis: Pneumonia, UTI, - Time Spent with Patient Total time spent providing and/or coordinating discharge services: Medical - DS: Exam - Constitutional Vitals: Vital Signs Temp Pulse Pulse Pulse Resp BP Pulse Ox 05/01/18 07:53 91 05/01/18 07:51 81 15 05/01/18 07:35 98.2 F 81 28 H 144/81 97 05/01/18 04:00 97.8 F 69 32 H 128/74 96 04/30/18 23:45 97.5 F 66 30 H 134/74 97 04/30/18 20:00 98.1 F 87 30 H 141/72 96 04/30/18 16:06 99.5 F H 67 22 142/70 96 04/30/18 13:10 94 04/30/18 12:00 99.5 F H 81 26 H 132/80 94 Intake and Output 04/30/18 05/01/18 05/01/18 21:59 05:59 13:59 Intake Total 1070 / 1070 100 / 100 Output Total 152 / 152 Balance 1069 / 1069 -52 / -52 Intake: Oral 1070 / 1070 100 / 100 Output: Void Amount 150 / 150 # of times incontinent of urine Other: Meal Dinner Percent of Meal Consumed 50% Feeding Ability Assist with Tray Set Up Weight 153 lb Additional comments: Constitutional; Afebrile, cooperative, alert, not in distress. Eyes- No icterus, , No periorbital swelling Ears- Ext ear normal, hearing normal to conversation. Neck- Midline trachea, supple Respiratory system: Air Entry equal on both sides, No crackles or wheezing, no rhonchi. CVS- Rate rhythm irregular, S1,S2 heard, no gallop, no rub. Abdomen- Soft nontender abdomen, no organomegaly, no tenderness, no guarding or rigidity, SOCIAL PSYCHOLOGIST- AOOx2, moving all extremities, no gross focal deficit noted. Medical - DS: Data Labs on day of discharge: Labs from last 24 hours 05/01/18 05/01/18 05/01/18 03:50 03:50 03:50 WBC 8.1 RBC 2.80 L Hgb 8.6 L Hct 26.4 L MCV 94.3 MCH 30.8 MCHC 32.7 RDW 17.3 H Plt Count 212 MPV 9.5 Gran % 63.7 Lymph % (Auto) 16.0 [place] % (Auto) 17.1 H Eos % (Auto) 2.8 Baso % (Auto) 0.4 Gran # 5.2 Lymph # (Auto) 1.3 L [place] # (Auto) 1.4 H Eos # (Auto) 0.2 Baso # (Auto) 0 PT 18.1 H INR 1.5 H Sodium 134 Potassium 4.7 Chloride 101 Carbon Dioxide 26 Anion Gap 7.0 L BUN 39 H Creatinine 1.6 H GFR Calculation 39 Glucose 121 H Uric Acid 7.3 Calcium 9.0 Phosphorus 2.8 Magnesium 1.9 Total Bilirubin 0.5 Direct Bilirubin < 0.2 GGT 9 AST 13 ALT 7 Alkaline Phosphatase 75 Lactate Dehydrogenase 220 Total Protein 6.5 Albumin 2.9 L Globulin 3.6 Albumin/Globulin Ratio 0.8 L Triglycerides 65 Procalcitonin Urine Color Urine Appearance Urine pH Ur Specific [place] Urine Protein Urine Glucose (UA) Urine Ketones Urine Occult Blood Urine Nitrate Urine Bilirubin Urine Urobilinogen Ur Leukocyte Esterase Urine RBC Urine WBC Ur Squamous Epith Cells Urine Bacteria Hyaline Casts Ur Culture Indicated? 04/30/18 04/30/18 11:50 11:26 WBC RBC Hgb Hct MCV MCH MCHC RDW Plt Count MPV Gran % Lymph % (Auto) [place] % (Auto) Eos % (Auto) Baso % (Auto) Gran # Lymph # (Auto) [place] # (Auto) Eos # (Auto) Baso # (Auto) PT INR Sodium Potassium Chloride Carbon Dioxide Anion Gap BUN Creatinine GFR Calculation Glucose Uric Acid Calcium Phosphorus Magnesium Total Bilirubin Direct Bilirubin GGT AST ALT Alkaline Phosphatase Lactate Dehydrogenase Total Protein Albumin Globulin Albumin/Globulin Ratio Triglycerides Procalcitonin 0.31 Urine Color Yellow Urine Appearance Hazy Urine pH 5.0 Ur Specific [place] 1.016 Urine Protein Neg Urine Glucose (UA) Negative Urine Ketones Neg Urine Occult Blood Neg Urine Nitrate Neg Urine Bilirubin Neg Urine Urobilinogen Neg Ur Leukocyte Esterase 25 A Urine RBC 1 Urine WBC < 1 Ur Squamous Epith Cells 1 Urine Bacteria 0 Hyaline Casts 1 Ur Culture Indicated? No Preliminary micro results at discharge 04/30/18 11:50 Urine Culture - Preliminary Urine - Clean Void Mid-Stream Swarming proteus Medical - DS: A/P - Patient/Caregiver Discharge Instructions Activity: increase activity as tolerated Diet: Cardiac Additional Instructions: Take levofloxacin 750mg every other day for 5 doses (10 day treatment) follow up with PCP in 1 week You have mass in the lung, which is likely cancer, should you change your mind and wish for treatment, please talk to your primary care doctor for further workup. Go to the ER if worsening condition, chest pain, shortness of breath or any other acute concern. Discharge home by Ambulance. - Follow up Plan Follow up with: Nino Bhatt MD [Physician] - Sunny Nieves ARNP [Primary Care Provider] - Disposition: Home Health Service Prognosis: Undetermined Rehab Potential: Undetermined I certify that the patient requires SNF services: No Overall status at discharge: patient is not back to baseline
[2018-05-01] MEDS: DIGOXIN 125 MCG TABLET PO SCH (13:53)
[2018-05-01] MEDS ORDERED: WARFARIN 5 MG TABLET PO ONE (14:00)
== END 2018-05-01 14:22 | disposition home health service (06) | DRG 535 ==
LOC: ED 17:40 → ICU 21:25 → MEDSUR 04-29 12:34
PROVIDERS: ADMIT Internal Medicine; ATTEND Internal Medicine

== ENCOUNTER 2018-12-06 19:21 | Inpatient (IN) ==
[2018-12-06] MEDS ORDERED: 0.9 % SODIUM CHLORIDE 500 ML IV ONE (19:41)
[2018-12-06 20:48] LABS: Basophils # (Auto) 0 K/mcL (0.0-0.3); Basophils % (Auto) 0 % (0.0-2.0); Eosinophils # (Auto) 0.3 K/mcL (0.0-0.7); Granulocytes % (Auto) 74.6 % (38.0-78.0); Lymphocytes # (Auto) 1.2 K/mcL (1.5-4.8); Lymphocytes % (Auto) 10.8 % (15.5-49.0); Mean Cell Volume 95.1 fL (80.0-100.0); Mean Corpuscular HGB Conc 30.9 g/dL (31.0-36.0); Monocytes # (Auto) 1.3 K/mcL (0.1-0.9); Monocytes % (Auto) 11.6 % (1.0-12.0); Platelet Count 448 K/mcL (140-440); RBC 2.98 M/mcL (4.50-5.90); Red Cell Distribution Width 16.5 % (11.5-14.5)
[2018-12-06 21:09] LABS: ALT/SGPT 12 U/l (0-40); Albumin 2.8 gm/dL (3.2-5.2); Albumin/Globulin Ratio 0.5 (1.0-2.3); Alkaline Phosphatase 68 U/L (39-117); Blood Urea Nitrogen 91 mg/dl (8-23); Lipase 19 U/L (7-60)
--- NOTE | 2018-12-06 21:48 | Emergency Department Note ---
SOB HPI - General Chief Complaint: Shortness of Breath/Dyspnea Stated Complaint: family thinks pnuemonia not better Time Seen by Provider: 12/06/18 19:28 Source: patient, family Mode of arrival: wheelchair Limitations: altered mental status - History of Present Illness 83-year-old male who lives with his daughter comes in for fever shortness of breath trouble breathing. He was recently released from [facility] 8 days ago after being hospitalized for pneumonia there. He finished his antibiotics yesterday. He seems to be getting sick again now. No nausea vomiting and diarrhea. He does seem to have some dementia and is unable to give systems; all history from his daughter Is a full code at this point; although he is not able to make decisions at this point his daughter whom he lives with would like fluids and antibiotics but not any aggressive intervention - Related Data Home Medications Medication Instructions Recorded Confirmed Ferrous Sulfate 325 mg PO BID 03/07/17 12/06/18 cloNIDine HCL [Catapres] 0.2 mg PO BID 03/07/17 12/06/18 Cetirizine HCl [All Day Allergy] 10 mg PO DAILYP PRN 10/07/17 12/06/18 Finasteride [Proscar] 5 mg PO DAILY 10/07/17 12/06/18 Multivit-Min/FA/Lycopen/Lutein 1 each PO DAILY 10/07/17 12/06/18 [Adults 50 Plus Multivitamin Tb] Oxybutynin Chloride [Ditropan Xl] 5 mg PO TID 10/07/17 12/06/18 Pravastatin [Pravachol] 40 mg PO HS 10/07/17 12/06/18 Digoxin [Digitek] 125 mcg PO DAILY 02/03/18 12/06/18 guaiFENesin [Mucinex] 600 mg PO Q8HP PRN 02/03/18 12/06/18 Warfarin [Coumadin] 4 mg PO DAILY 02/04/18 12/06/18 Ipratropium [place] [Atrovent Hfa] 2 puff INH QIDP PRN 04/29/18 12/06/18 Ipratropium/Albuterol [Duoneb] 3 ml NEB QIDP PRN 04/29/18 12/06/18 Lisinopril [Zestril] 5 mg PO DAILY 04/29/18 12/06/18 Metoprolol Tartrate [Lopressor] 50 mg PO DAILY 04/29/18 12/06/18 Albuterol Sulfate [Ventolin] 1 puff INH QIDP PRN 06/14/18 12/06/18 Previous Rx's Medication Instructions Recorded Accu-Chek 1 each FS ACHS strip 10/09/17 Levofloxacin [Levaquin] 500 mg PO DAILY #10 tab 06/14/18 Levofloxacin [Levaquin] 500 mg PO DAILY #7 tab 06/20/18 Allergies Allergy/AdvReac Type Severity Reaction Status Date / Time No Known Drug Allergies Allergy Verified 11/21/18 18:02 Review of Systems All systems ED: reviewed and negative except as stated. Past Medical History - Past Medical History Source: old records reviewed Medical history: Reports: atrial fibrillation, CHF, COPD, coronary artery disease (Cardiomyopathy), DVT, dementia, hyperlipidemia, hypertension, peripheral artery disease, pulmonary embolus, renal disease, TIA, other (Anemia, SVT, obstructive sleep apnea) Surgical history ED: Reports: cataract, herniorrhaphy, orthopedic, other (Bilateral knees), tonsillectomy (And adenoidectomy), other (Aorto fem bypass) - Social History smoking status: Current some day smoker Alcohol use: Reports: None Drug use: Reports: none Physical Exam No acute distress resting he is talking some but some of it does sound like gibberish and inappropriate. Normocephalic atraumatic. Conjunctive are clear sclerae white and nonicteric. No nasal discharge or congestion. Oropharynx with dry buccal mucosa. Neck is supple without lymphadenopathy thyromegaly or carotid bruit. Heart is irregularly irregular rhythm I do not hear a murmur. Lungs are basically clear to auscultation without wheezes rales rhonchi. Abdomen is soft nontender nondistended. Mild pedal edema bilaterally. Alert but is not oriented Limitations: no limitations Course Vital Signs Pulse Rate 84 12/06/18 19:22 Respiratory Rate 25 H 12/06/18 19:22 Blood Pressure 160/85 12/06/18 19:22 Pulse Oximetry (%) 98 12/06/18 19:22 Temperature 98.9 F 12/07/18 05:05 Pulse Rate 60 12/07/18 00:57 Respiratory Rate 28 H 12/07/18 05:05 Blood Pressure 112/81 12/07/18 05:05 Pulse Oximetry (%) 97 12/07/18 05:30 Shortness of Breath/Dyspnea - Lab Data Lab results reviewed: Yes I reviewed the patient's lab results. Result diagrams: 12/07/18 04:34 12/07/18 04:34 Lab Results 12/06/18 12/06/18 12/06/18 Range/Units 19:35 19:35 19:35 WBC 11.4 H (4.5-11.0) K/mcL RBC 2.98 L (4.50-5.90) M/mcL Hgb 8.8 L (13.5-16.5) g/dL Hct 28.4 L (41.0-55.0) % POC Hct 28.0 L (41.0-55.0) % MCV 95.1 (80.0-100.0) fL MCH 29.4 (26.0-34.0) pg MCHC 30.9 L (31.0-36.0) g/dL RDW 16.5 H (11.5-14.5) % Plt Count 448 H (140-440) K/mcL MPV 8.6 (7.4-10.4) fL Gran % 74.6 (38.0-78.0) % Lymph % (Auto) 10.8 L (15.5-49.0) % [place] % (Auto) 11.6 (1.0-12.0) % Eos % (Auto) 3.0 (0.0-7.0) % Baso % (Auto) 0 (0.0-2.0) % Gran # 8.5 H (1.8-8.0) K/mcL Lymph # (Auto) 1.2 L (1.5-4.8) K/mcL [place] # (Auto) 1.3 H (0.1-0.9) K/mcL Eos # (Auto) 0.3 (0.0-0.7) K/mcL Baso # (Auto) 0 (0.0-0.3) K/mcL PT (11.9-14.5) sec INR (0.9-1.1) VBG Lactic Acid 1.2 (0.5-2.0) mmol/L POC Sodium 141 (133-145) mmol/L Sodium 140 (133-145) mmol/L POC Potassium 5.1 (3.3-5.1) mmol/L Potassium 5.1 (3.3-5.1) mmol/L POC Chloride 103 (96-108) mmol/L Chloride 99 (96-108) mmol/L Carbon Dioxide 28 (22-30) mmol/L POC Total CO2 29 (22-30) mmol/L Anion Gap 13.0 (8-16) POC BUN 94 H (8-23) mg/dl BUN 91 H (8-23) mg/dl Creatinine 2.3 H (0.7-1.2) mg/dl POC Creatinine 2.5 H (0.7-1.2) mg/dl GFR Calculation 25 Glucose 153 H (70-105) mg/dL POC Glucose 156 H (70-105) mg/dL Calcium 10.2 (8.6-10.4) mg/dl POC WB Ioniz Calcium 1.37 H (1.16-1.32) mmol/L Magnesium 2.6 H (1.6-2.5) mg/dL Total Bilirubin 0.2 (0.0-1.0) mg/dL AST 28 (0-37) U/l ALT 12 (0-40) U/l Alkaline Phosphatase 68 (39-117) U/L Troponin T (0-0.03) ng/ml NT-Pro-B Natriuret Pep 7549.0 H (0-450) pg/ml Total Protein 8.1 (5.9-8.4) gm/dL Albumin 2.8 L (3.2-5.2) gm/dL Globulin 5.3 H (2.2-3.7) gm/dL Albumin/Globulin Ratio 0.5 L (1.0-2.3) Lipase 19 (7-60) U/L Procalcitonin (<0.10) ng/mL 12/06/18 12/06/18 12/06/18 Range/Units 19:35 19:35 19:35 WBC (4.5-11.0) K/mcL RBC (4.50-5.90) M/mcL Hgb (13.5-16.5) g/dL Hct (41.0-55.0) % POC Hct (41.0-55.0) % MCV (80.0-100.0) fL MCH (26.0-34.0) pg MCHC (31.0-36.0) g/dL RDW (11.5-14.5) % Plt Count (140-440) K/mcL MPV (7.4-10.4) fL Gran % (38.0-78.0) % Lymph % (Auto) (15.5-49.0) % [place] % (Auto) (1.0-12.0) % Eos % (Auto) (0.0-7.0) % Baso % (Auto) (0.0-2.0) % Gran # (1.8-8.0) K/mcL Lymph # (Auto) (1.5-4.8) K/mcL [place] # (Auto) (0.1-0.9) K/mcL Eos # (Auto) (0.0-0.7) K/mcL Baso # (Auto) (0.0-0.3) K/mcL PT 18.6 H (11.9-14.5) sec INR 1.6 H (0.9-1.1) VBG Lactic Acid (0.5-2.0) mmol/L POC Sodium (133-145) mmol/L Sodium (133-145) mmol/L POC Potassium (3.3-5.1) mmol/L Potassium (3.3-5.1) mmol/L POC Chloride (96-108) mmol/L Chloride (96-108) mmol/L Carbon Dioxide (22-30) mmol/L POC Total CO2 (22-30) mmol/L Anion Gap (8-16) POC BUN (8-23) mg/dl BUN (8-23) mg/dl Creatinine (0.7-1.2) mg/dl POC Creatinine (0.7-1.2) mg/dl GFR Calculation Glucose (70-105) mg/dL POC Glucose (70-105) mg/dL Calcium (8.6-10.4) mg/dl POC WB Ioniz Calcium (1.16-1.32) mmol/L Magnesium (1.6-2.5) mg/dL Total Bilirubin (0.0-1.0) mg/dL AST (0-37) U/l ALT (0-40) U/l Alkaline Phosphatase (39-117) U/L Troponin T 0.06 H* (0-0.03) ng/ml NT-Pro-B Natriuret Pep (0-450) pg/ml Total Protein (5.9-8.4) gm/dL Albumin (3.2-5.2) gm/dL Globulin (2.2-3.7) gm/dL Albumin/Globulin Ratio (1.0-2.3) Lipase (7-60) U/L Procalcitonin 0.55 (<0.10) ng/mL ABG shows a pH is 7.4 PCO2 of 50 PO2 of 134 on 3 L nasal cannula - Radiology Data Radiology results reviewed: Yes I reviewed the patient's radiology results. CT scan of the chest was done which shows again lung mass consistent with mal ignancy as well as adenopathy consistent with metastasis. Concern for aspiration infiltrate. He has COPD as well please see full report for full details Disposition Pt seen by [facility] [facility] [facility]/PA only: No Clinical Impression: Chronic kidney disease, stage 3, Lung mass Aspiration pneumonia Qualifiers: Aspiration pneumonia type: unspecified Laterality: unspecified laterality Lung location: lower lobe of lung Qualified Code(s): J69.0 - Pneumonitis due to inhalation of food and vomit Chronic obstructive pulmonary disease Qualifiers: COPD type: unspecified COPD Qualified Code(s): J44.9 - Chronic obstructive pulmonary disease, unspecified Summary: Patient is placed on oxygen and workup with CT scan and laboratory started. After getting his labs and imaging studies back I discussed his case with Dr. Wade who agreed to accept the patient for further care and evaluation in the hospital. In particular, the daughter wants antibiotics, oxygen and fluids for possible pneumonia but really no other aggressive interventions for the presumed metastatic lung cancer. Disposition: Xfer As Inpt ([facility]) Condition: Serious
--- NOTE | 2018-12-06 23:25 | Internal Med History&Physical ---
Medical - H&P: HPI Patient information: Note initiated : 12/06/18 at 11:13 pm Service Date, if different from initiated Date: [] Patient: Tanvir Rubin 83 y/o M admitted on for family thinks pnuemonia not better. Chief Complaint: [] History of present illness: Mr. Rubin is a 83 year old Male with h/o dementia, bed bound, right bka, presents to the ER today for evaluation of shortness of breath, altered mentation. The patient also has been constipatited The patient has advanced dementia history obtained from speaking to the daughter. Patient at baseline is bedbound, his lives with him, the patient is dependent on family for transfers. He eats a dysphagia diet. The patient presented to this hospital emergency room a few weeks ago, he was diagnosed with pneumonia and was transferred to [facility] for further management. The patient stayed there and then was discharged on oral antibiotics. According to the family the patient did not quite improve after antibiotic treatment from [facility], his mentation did not get back to baseline and over the last day his mentation had been abnormal, he is also been more short of breath. He was brought to the hospital therefore for further evaluation. On presentation to the hospital, patient was afebrile, heart rate is 94, blood pressure 160/85 but he was hypoxic, requiring 3 L of oxygen to maintain his oxygen saturation more than 90%. His labs showed a hemoglobin of 8.8, hemoglobin 11.4, platelets 448, INR was 1.6, lactic acid 1.2, sodium 140 potassium 5.1 chloride 99 bicarbonate 28 BUN 91 creatinine 2.3 glucose 153 calcium 10.2 magnesium 2.6 troponin 0 0.06 BNP 7549 albumin 2.8 per calcitonin 0.55 Patient is being admitted to the hospital for further management Chest CT was done which showed findings of severe chronic aspiration in the right middle lobe right lower lobe bronchi filled with material extending to the right mainstem bronchus there is associated right middle and lower lobe atelectasis 3.6 cm left paratracheal mass emphysema, cardiomegaly, ROS unobtainable: due to mental status Medical - H&P: PMH Medical history: Medical History (Last Updated 11/25/18 @ 01:39 by Pj Gusman DO) Acute urinary retention (Acute) Confusion (Acute) Fever (Acute) Atrial fibrillation (Chronic) Arterial disease (Chronic) Tobacco use (Chronic) Chronic kidney disease, stage 3 (Chronic) Anticoagulant long-term use (Chronic) Diabetic neuropathy (Chronic) Sepsis (Resolved) Diabetes mellitus, type II (Chronic) Chronic Kidney Disease (Chronic) Anemia (Chronic) Lung mass (Chronic) Urine incontinence (Chronic) Bladder outlet obstruction (Chronic) CHF (congestive heart failure) (Chronic) Shortness of breath (Chronic) Constipation (Chronic) Septic shock (Resolved) Right hip pain (Chronic) Respiratory failure, chronic (Chronic) Coronary atherosclerosis (Chronic) Pulmonary embolism (Chronic) Cardiomyopathy (Chronic) TIA (transient ischemic attack) (Resolved) Tobacco abuse (Chronic) Obstructive sleep apnea (Chronic) Peripheral vascular disease (Chronic) Paroxysmal supraventricular tachycardia (Resolved) Osteoarthritis (Chronic) Nocturia (Chronic) Hypertension, essential (Chronic) Hyperlipidemia (Chronic) Erectile dysfunction (Chronic) Diastolic heart failure (Chronic) Chronic obstructive pulmonary disease (Chronic) Cachexia (Chronic) Macular pucker (Chronic) 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) Other and combined forms of senile cataract (Chronic) Refractive errors (Chronic) Vitreomacular adhesion (Chronic) Acute kidney injury superimposed on chronic kidney disease (Resolved) Alcohol withdrawal (Resolved) Benign neoplasm (Resolved) Community acquired pneumonia (Resolved) Encephalopathy (Resolved) Finger fracture (Resolved) Fracture of hip (Resolved) History of ECG (Resolved 10/26/15) Lactic acid acidosis (Resolved) group home current use of antibiotics (Resolved) Pleural effusion (Resolved) Pneumonia (Resolved) Pneumonia (Resolved) Psychosis (Resolved) Pulmonary collapse (Resolved) Respiratory failure (Resolved) Tachycardia (Resolved) UTI (urinary tract infection) (Resolved) 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) Surgical history: Past Surgical History (Last Updated 11/25/18 @ 01:39 by Pj Gusman DO) History of lower limb amputation (Resolved) History of colonoscopy (Chronic) History of adenoidectomy (Resolved) History of aorto-femoral bypass (Resolved) History of inguinal hernia repair (Resolved) History of intraocular lens implant (Resolved) History of skin cancer (Resolved) History of tonsillectomy (Resolved) Status post arthroscopic surgery of left knee (Resolved) Status post arthroscopic surgery of right knee (Resolved) Pertinent family history: Family History mother Alzheimer's disease Unknown Asthma Essential hypertension Father Cardiovascular disease Medical - H&P: Meds Home Medications Medication Instructions Recorded Confirmed Type Ferrous Sulfate 325 mg PO BID 03/07/17 12/06/18 History cloNIDine HCL [Catapres] 0.2 mg PO BID 03/07/17 12/06/18 History Cetirizine HCl [All Day Allergy] 10 mg PO DAILYP PRN 10/07/17 12/06/18 History Finasteride [Proscar] 5 mg PO DAILY 10/07/17 12/06/18 History Multivit-Min/FA/Lycopen/Lutein 1 each PO DAILY 10/07/17 12/06/18 History [Adults 50 Plus Multivitamin Tb] Oxybutynin Chloride [Ditropan Xl] 5 mg PO TID 10/07/17 12/06/18 History Pravastatin [Pravachol] 40 mg PO HS 10/07/17 12/06/18 History Accu-Chek 1 each FS ACHS strip 10/09/17 06/14/18 Rx Digoxin [Digitek] 125 mcg PO DAILY 02/03/18 12/06/18 History guaiFENesin [Mucinex] 600 mg PO Q8HP PRN 02/03/18 12/06/18 History Warfarin [Coumadin] 4 mg PO DAILY 02/04/18 12/06/18 History Ipratropium [place] [Atrovent Hfa] 2 puff INH QIDP PRN 04/29/18 12/06/18 History Ipratropium/Albuterol [Duoneb] 3 ml NEB QIDP PRN 04/29/18 12/06/18 History Lisinopril [Zestril] 5 mg PO DAILY 04/29/18 12/06/18 History Metoprolol Tartrate [Lopressor] 50 mg PO DAILY 04/29/18 12/06/18 History Albuterol Sulfate [Ventolin] 1 puff INH QIDP PRN 06/14/18 12/06/18 History Levofloxacin [Levaquin] 500 mg PO DAILY #10 tab 06/14/18 Rx Levofloxacin [Levaquin] 500 mg PO DAILY #7 tab 06/20/18 Rx Allergies Allergy/AdvReac Type Severity Reaction Status Date / Time No Known Drug Allergies Allergy Verified 11/21/18 18:02 Medical - H&P: Exam - Constitutional Vitals: Pulse Resp BP Pulse Ox 86 18 152/81 96 02/02/19 21:11 12/06/18 21:11 12/06/18 21:01 12/06/18 21:11 Exam: GENERAL: The patient is a well-developed,thin, in no apparent distress. Is alert and oriented x0 . VITAL SIGNS: Reviewed and as noted elsewhere. HEENT: Head is normocephalic and atraumatic. Extraocular muscles are intact. Pupils are equal, round, and reactive to light. Nares appeared normal. Mouth appears any without lesions. Mucous membranes are dry. NECK: Normal to inspection, Supple, No lymphadenopathy or thyromegaly. LUNGS: Air entry equal on both sides, right basilar rales noted, no wheezing noted. HEART: Regular rate and rhythm normal, S1 and S2 heard, no Gallop, S3 or Rub Noted, No Gross murmur heard. ABDOMEN: Soft, nontender, and nondistended. Positive bowel sounds. No hepatosplenomegaly was noted. EXTREMITIES: No cyanosis, clubbing, rash, lesions or edema. Right bka NEUROLOGIC: Cranial nerves II through XII are grossly intact. Moving all extremities. PSYCHIATRIC: confused, uncoperative . SKIN: No ulceration or wounds noted, No jaundice, No rash noted. Medical - H&P: Reslt - Labs CBC & Chem 7: 12/06/18 19:35 12/06/18 19:35 Labs: Short CBC 12/06/18 Range/Units 19:35 WBC 11.4 H (4.5-11.0) K/mcL Hgb 8.8 L (13.5-16.5) g/dL Hct 28.4 L (41.0-55.0) % Plt Count 448 H (140-440) K/mcL BMP 12/06/18 19:35 Sodium 140 Potassium 5.1 Chloride 99 Carbon Dioxide 28 BUN 91 H Creatinine 2.3 H Glucose 153 H Calcium 10.2 Cardiac Enzymes 12/06/18 Range/Units 19:35 Troponin T 0.06 H* (0-0.03) ng/ml Liver Function 12/06/18 Range/Units 19:35 Total Bilirubin 0.2 (0.0-1.0) mg/dL AST 28 (0-37) U/l ALT 12 (0-40) U/l Alkaline Phosphatase 68 (39-117) U/L Albumin 2.8 L (3.2-5.2) gm/dL Medical - H&P: A/P - Narrative A/P Narrative: A/P Aspiration pneumonia -Chr aspirations, pt on thickned liquid, ST to evaluate -IV vancomycin and zosyn for now -monitor for response -pt does not want any aggresive interventions, -Lung mass -Pt has refused evaluation in the past, not sure even if malignancy, but overall prognosis has been quite poor -no interventions are planed Dementia -fairly advanced, bed bound status. Anemia -Hb 8.8, due to chr infections, monitor for now Atrial fibrillation Rate stable, on digoxin and coumadin, INR subtherapeutic, coumadin to be dosed by pharmacy DM glucose controlled SSI insulin for now OAB/BPH on oxybutynin and bph, place montoya for now CKD Creat is stable at baseline 2.5 Constipation -start on biscodyl HI< and miralax daily titrate bowel regime to response COPD chr emphysema, Bronchodilators q6hrs, no wheezing. DVT hep sq, INR is subtherapeutic DNR code status Dysphagia diet Overall prognosis is very poor, family wishes to treat this episode with antibiotics and see how he responds, no cpr, no intubatino, but bipap is ok. Social History - Social History marital status: education level: high school occupational status: retired other: children - Tobacco smoking status: Current some day smoker - Alcohol alcohol intake frequency: holiday/special occasion only - Substance use substance use type: does not use
[2018-12-07] MEDS ORDERED: DEXTROSE 31 GM ORAL.SUSP PO PRN (00:40)
[2018-12-07] MEDS ORDERED: VANCOMYCIN PER PHARMACY IV ONE (00:40)
[2018-12-07] MEDS ORDERED: ONDANSETRON 4 MG/2 ML VIAL IV PRN (00:40)
[2018-12-07] MEDS ORDERED: DEXTROSE 50% 50 ML VIAL IV PRN (00:40)
[2018-12-07] MEDS ORDERED: BISACODYL 10 MG SUPP.RECT PR SCH (00:40)
[2018-12-07] MEDS ORDERED: ACETAMINOPHEN 325 MG TABLET PO PRN (00:40)
[2018-12-07] MEDS ORDERED: NALOXONE HCL 0.4 MG/ML VIAL IV PRN (00:40)
[2018-12-07] MEDS ORDERED: oxyCODONE/APAP 5/325MG TABLET PO PRN (00:40)
[2018-12-07] MEDS ORDERED: THIAMINE 100 MG in 0.9 % SODIUM CHLORIDE 50 ML IV SCH (00:40)
[2018-12-07] MEDS ORDERED: 0.9 % SODIUM CHLORIDE 1,000 ML IV SCH (00:40)
[2018-12-07] MEDS ORDERED: VANCOMYCIN 1,000 MG in 0.9 % SODIUM CHLORIDE 250 ML IV ONE (00:40)
[2018-12-07] MEDS ORDERED: cloNIDine HCL 0.1 MG TABLET ONE (01:05)
[2018-12-07] MEDS: PIPERACILLIN SODIUM/TAZOBACTAM 2.25 GM in DEXTROSE 5% IN WATER 50 ML IV SCH ×3 (02:06→14:45)
[2018-12-07] MEDS: IPRATROPIUM/ALBUTEROL 3 ML AMPUL.NEB NEB SCH ×3 (05:31→11:40)
[2018-12-07 06:13] LABS: Appearance,Urine HAZY; Bacteria,Urine FEW /hpf (0); Bilirubin,Urine NEG (NEG); Color,Urine YELLOW; Glucose,Urine (UA) NEGATIVE (NEG); Leukocyte Esterase,Urine NEG /uL (NEG); Mucus,Urine FEW /hpf (0); Protein,Urine 100 mg/dL (NEG); Specific Gravity,Urine 1.015 (1.000-1.035); Urine Blood 0.2 mg/dL (<0.03); Urine Hyaline Cast 16 /lpf (0-2); Urine RBC 182 /hpf (0-1); Urine Squamous Epithelial Cell 1 /hpf (0-4); Urine WBC 1 /hpf (0-4); Urobilinogen,Urine NEG (NEG)
[2018-12-07 06:43] LABS: Basophils # (Auto) 0 K/mcL (0.0-0.3); Basophils % (Auto) 0.1 % (0.0-2.0); Eosinophils # (Auto) 0.2 K/mcL (0.0-0.7); Eosinophils % (Auto) 2.3 % (0.0-7.0); Granulocytes % (Auto) 74.1 % (38.0-78.0); Lymphocytes # (Auto) 1.2 K/mcL (1.5-4.8); Lymphocytes % (Auto) 11.9 % (15.5-49.0); Mean Cell Volume 96.4 fL (80.0-100.0); Mean Corpuscular HGB Conc 31.3 g/dL (31.0-36.0); Monocytes # (Auto) 1.2 K/mcL (0.1-0.9); Monocytes % (Auto) 11.6 % (1.0-12.0); Platelet Count 395 K/mcL (140-440); RBC 2.78 M/mcL (4.50-5.90); Red Cell Distribution Width 16.6 % (11.5-14.5)
[2018-12-07 07:10] LABS: ALT/SGPT 10 U/l (0-40); Albumin 2.4 gm/dL (3.2-5.2); Albumin/Globulin Ratio 0.5 (1.0-2.3); Alkaline Phosphatase 63 U/L (39-117); Bilirubin,Direct < 0.2 mg/dL (0.0-0.3); Blood Urea Nitrogen 87 mg/dl (8-23); Gamma Glutamyl Transpeptidase 17 U/L (8-61); Uric Acid 6.3 mg/dL (2.5-8.0)
[2018-12-07] MEDS: 0.9 % SODIUM CHLORIDE 10 ML SYRINGE IV SCH ×2 (07:23→14:45)
[2018-12-07] MEDS ORDERED: FERROUS SULFATE 325 MG TABLET PO SCH (08:00)
[2018-12-07] MEDS ORDERED: VANCOMYCIN PER PHARMACY IV SCH (08:00)
--- NOTE | 2018-12-07 08:29 | Cat Scan Report ---
CLINICAL INFORMATION: Chest pain and shortness of breath COMPARISON: 04/28/2018 TECHNIQUE: 0.625 mm axial slices were obtained from the lung apices through the bases without intravenous contrast. 2.5 mm Sagittal, coronal and axial reformatted images were processed and reviewed at bone, lung and soft tissue windows. 7 mm axial MIP images were also reconstructed to optimize pulmonary nodule detection.The exam was performed using radiation dose optimization techniques including, but not limited to, automated exposure control, adjustment of the mA and/or kV according to patient size and use of iterative reconstruction technique. FINDINGS: Pulmonary parenchymal windows show continued increase in size within endobronchial mass now suboccluding the distal right mainstem bronchus and and filling bronchus intermedius and all right middle and lower lobe bronchi. There is complete atelectasis and soft tissue infiltration of the right middle and lower lobes. No sandra invasion through the chest wall. Moderate underlying centrilobular emphysema and moderate patchy infiltrates throughout the left upper/lower and right upper lobes - suspect aspiration. Small bilateral pleural effusions noted. Mediastinal windows show a large 4 cm lymph node in the lower right paratracheal region which has increased slightly. There are 5-6 other enlarged lymph nodes in the lower mediastinum and hilum which have also increased in size. This could represent metastatic adenopathy or benign reactive adenopathy from infection. The heart is markedly enlarged with rightward shift due to volume loss right middle and lower lobe collapse. Mild central pulmonary artery enlargement is compatible with pulmonary hypertension related COPD. Mild aneurysmal enlargement of the ascending thoracic aorta (diameter 4.9 cm) is unchanged. The remainder of the thoracic aorta is normal in caliber contains moderate calcified plaque. The esophagus is grossly normal although there does appear to be extrinsic impingement of the mid thoracic esophagus due to enlarged lymph nodes. Bone windows show moderate L1 compression fracture - new from the comparison CT seven months ago. No definite osteolytic metastases. Upper abdominal images from the superior pole of both kidneys which demonstrate severe hydronephrosis - new. IMPRESSION: 1. Endobronchial soft tissue density suboccluding the lateral right mainstem bronchus and filling the bronchus intermedius and all right middle and lower lobe bronchi leading resulting in complete right middle and lower lobe collapse. It has progressed from the chest CT seven months prior and is suspicious for endobronchial primary lung carcinoma. It would be best diagnosed (including biopsy) with bronchoscopy - if this has not been performed. Enlarged lymph nodes in the lower mediastinum, ranging up to 4.1 cm in the lower left paratracheal region, having increased modestly in size and number and are suspicious for metastatic adenopathy. 2. Moderate centrilobular emphysema. New moderate patchy groundglass infiltrates throughout the left lung and right upper lobe are suspicious for infection or aspiration. Extrinsic compression of the distal thoracic esophagus by adenopathy predisposes to aspiration. 3. Mild enlargement central pulmonary arteries compatible with pulmonary hypertension 4. Marked cardiomegaly unchanged. 5. 4.9 cm ascending thoracic aortic aneurysm - stable. 6. Severe bilateral hydronephrosis - incompletely imaged. Suggest renal ultrasound. 7. Moderate L1 compression fracture - new. It has benign features Interpreted and Authenticated by: Topher Mcfarlane 12/07/18
[2018-12-07] MEDS ORDERED: POLYETHYLENE GLYCOL 3350 17 GM PACKET PO SCH (09:00)
[2018-12-07] MEDS ORDERED: MULTIVIT,THER IRON,CA,FA & MIN 1 TABLET PO SCH (09:00)
[2018-12-07] MEDS ORDERED: LISINOPRIL 5 MG TABLET PO SCH (09:00)
[2018-12-07] MEDS ORDERED: HEPARIN 5,000 UNIT/ML VIAL SQ SCH (09:00)
[2018-12-07] MEDS ORDERED: FINASTERIDE 5 MG TABLET PO SCH (09:00)
[2018-12-07] MEDS ORDERED: ENOXAPARIN 60 MG/0.6 ML SYRINGE SQ SCH (09:00)
[2018-12-07] MEDS ORDERED: METOPROLOL TARTRATE 50 MG TABLET PO SCH (09:00)
[2018-12-07] MEDS ORDERED: cloNIDine HCL 0.1 MG TABLET PO SCH (09:00)
[2018-12-07] MEDS ORDERED: OXYBUTYNIN CHLORIDE 5 MG TAB.XL.24H PO SCH (09:00)
--- NOTE | 2018-12-07 09:16 | Cat Scan Report ---
CLINICAL INFORMATION: Decreased mental status obtundation COMPARISON: 11/04/2014 TECHNIQUE: 2.5 mm helical slices were obtained in the skull base to vertex. Following reconstruction, axial reformatted images were reviewed at bone and parenchymal windows. The exam was performed using radiation dose optimization techniques including, but not limited to, automated exposure control, adjustment of the mA and/or kV according to patient size and use of iterative reconstruction technique. FINDINGS: The ventricles, sulci, fissures, and cisterns are enlarged compatible with moderate atrophy - increased from 2015 CT. There there are no subdural hemorrhage or extra-axial fluid collection. 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 Moderate remote subcortical infarct of the right frontoparietal junction at vertex is again seen. Scattered small remote lacunar infarcts in the right superior cerebellar vermis, the left thalamus and left lentiform nucleus are again seen. Extensive chronic ischemic changes seen in the deep cerebral white matter have progressed. Wallerian degeneration is seen in the cortical white matter tracts of the right internal capsule, right cerebral peduncle, right lana and medullary deccusation are again noted.. There is no intracerebral hemorrhage, mass effect edema or other acute findings. Bone windows show no osseous abnormality. IMPRESSION: 1. 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 2. Moderate remote subcortical white matter infarct in the right frontoparietal junction - near the vertex 3. Small remote lacunar infarcts in the right cerebellar vermis, the left thalamus, and left lentiform nucleus. 12 mm remote lacunar infarct in the deep left frontal periventricular white matter seen as before 4. Moderate atrophy and extensive chronic ischemic changes in the deep cerebral white matter progressing from the [address] 5. No intracerebral hemorrhage, edema or other acute finding. Interpreted and Authenticated by: Topher Mcfarlane 12/07/18
[2018-12-07] MEDS: INSULIN LISPRO 1 UNIT/0.01 ML UNIT SQ SCH ×2 (09:41→12:37)
--- NOTE | 2018-12-07 11:35 | Internal Med Progress Note ---
Medical - PN: Subj Patient information: Note initiated : 12/07/18 at 11:29 am Service Date, if different from initiated Date: [] Patient: Tanvir Rubin 83 y/o M admitted on 12/07/18 for family thinks pnuemonia not better. Chief Complaint: [] Interval history: Mr. Rubin is a 83 year old Male with h/o dementia, bed bound, right bka, presents to the ER today for evaluation of shortness of breath, altered mentation. The patient also has been constipatited The patient has advanced dementia history obtained from speaking to the daughter. Patient at baseline is bedbound, his lives with him, the patient is dependent on family for transfers. He eats a dysphagia diet. The patient presented to this hospital emergency room a few weeks ago, he was diagnosed with pneumonia and was transferred to [facility] for further management. The patient stayed there and then was discharged on oral antibiotics. According to the family the patient did not quite improve after antibiotic treatment from [facility], his mentation did not get back to baseline and over the last day his mentation had been abnormal, he is also been more short of breath. He was brought to the hospital therefore for further evaluation. On presentation to the hospital, patient was afebrile, heart rate is 94, blood pressure 160/85 but he was hypoxic, requiring 3 L of oxygen to maintain his oxygen saturation more than 90%. His labs showed a hemoglobin of 8.8, hemoglobin 11.4, platelets 448, INR was 1.6, lactic acid 1.2, sodium 140 potassium 5.1 chloride 99 bicarbonate 28 BUN 91 creatinine 2.3 glucose 153 calcium 10.2 magnesium 2.6 troponin 0 0.06 BNP 7549 albumin 2.8 per calcitonin 0.55 Patient is being admitted to the hospital for further management Chest CT was done which showed findings of severe chronic aspiration in the right middle lobe right lower lobe bronchi filled with material extending to the right mainstem bronchus there is associated right middle and lower lobe atelectasis 3.6 cm left paratracheal mass emphysema, cardiomegaly, 2/3 Patient seen and examined, clinically seems somewhat better today mental status is better. Patient is still not easy to understand. Labs are stable, WBC trending down. CT chest reviewed, enlarging endobronchial tumor, also lymph node compressing the esophagus. Reviewed the findings with family. I discussed with the daughter again regarding hospice placement, she is agreeable to hospice however there are some logistical barriers. She wants to continue antibiotics at this time. Case management involved, will see if we can sort out the issues. CT scan of the abdomen done a few weeks ago as well as a CT scan yesterday showed bilateral hydronephrosis, this was due to obstructive uropathy. Montoya has been placed. Pertinent ROS: unable - Constitutional Vitals: Vital Signs Temp Pulse Resp BP Pulse Ox 99.8 F H 60 22 100/64 95 12/07/18 08:07 12/07/18 00:57 12/07/18 08:07 12/07/18 09:05 12/07/18 09:05 Period Temp Pulse Resp BP Sys/Sherman Pulse Ox Last 24 Hr 98.9 F-99.8 F 60-96 17-32 84-192/57-102 93-100 Intake and Output 12/06/18 12/07/18 12/07/18 21:59 05:59 13:59 Intake Total 500 50 Output Total 951 Balance 500 -951 50 Weight 131 lb 12.8 oz 125 lb 8 oz Intake & Output: Intake & Output 12/06/18 12/07/18 12/07/18 21:59 05:59 13:59 Intake Total 500 50 Output Total 951 Balance 500 -951 50 Weight 131 lb 12.8 oz 125 lb 8 oz Intake: IV 500 50 Sodium Chloride 0.9% 500 ml @ 500 Wide Open IV .Q0M ONE Rx#: [id number] Zosyn 2.25 gm In Dextrose 5% in 50 Water 50 ml @ 100 mls/hr IV Q8H [facility] Rx#:[id number] Output: Urine Catheter Amount 950 # of times incontinent of urine 1 Other: Urine Appearance Sediment Mucous Threads Uretheral (Montoya) Clear Cloudy Urine Color Dark Yellow Uretheral (Montoya) Pale Straw Urine Odor Strong Stool Size Small Stool Color Brown Stool Consistency Formed # of times incontinent of 1 Bowels Exam: Constitutional; Afebrile, not in distress Respiratory system: Air equal both sides, bibailar crackles mild, no wheezing noted CVS- Rate rhythm regular, S1,S2 heard, no gallop, no rub. Abdomen- Soft nontender abdomen, no organomegaly, no tenderness, no guarding or rigidity, [employer]- AOOx0, moving all extremities, no gross focal deficit noted. Medical - PN: Obj Da - Labs CBC & Chem 7: 12/07/18 04:34 12/07/18 04:34 Labs: Abnormal Lab Results 12/07/18 12/07/18 12/07/18 04:36 04:34 04:34 WBC RBC Hgb Hct POC Hct MCHC RDW Plt Count Lymph % (Auto) Gran # Lymph # (Auto) [place] # (Auto) PT 17.2 H INR 1.4 H POC BUN BUN 87 H Creatinine 2.5 H POC Creatinine Glucose 122 H POC Glucose POC WB Ioniz Calcium Phosphorus 5.2 H Magnesium Lactate Dehydrogenase 670 H Troponin T NT-Pro-B Natriuret Pep Albumin 2.4 L Globulin 5.1 H Albumin/Globulin Ratio 0.5 L Urine Protein 100 A Urine Occult Blood 0.2 A Urine RBC 182 H Urine Bacteria Few A Hyaline Casts 16 H 12/07/18 12/06/18 12/06/18 04:34 19:35 19:35 WBC RBC 2.78 L Hgb 8.4 L Hct 26.8 L POC Hct MCHC RDW 16.6 H Plt Count Lymph % (Auto) 11.9 L Gran # Lymph # (Auto) 1.2 L [place] # (Auto) 1.2 H PT 18.6 H INR 1.6 H POC BUN BUN Creatinine POC Creatinine Glucose POC Glucose POC WB Ioniz Calcium Phosphorus Magnesium Lactate Dehydrogenase Troponin T 0.06 H* NT-Pro-B Natriuret Pep Albumin Globulin Albumin/Globulin Ratio Urine Protein Urine Occult Blood Urine RBC Urine Bacteria Hyaline Casts 12/06/18 12/06/18 19:35 19:35 WBC 11.4 H RBC 2.98 L Hgb 8.8 L Hct 28.4 L POC Hct 28.0 L MCHC 30.9 L RDW 16.5 H Plt Count 448 H Lymph % (Auto) 10.8 L Gran # 8.5 H Lymph # (Auto) 1.2 L [place] # (Auto) 1.3 H PT INR POC BUN 94 H BUN 91 H Creatinine 2.3 H POC Creatinine 2.5 H Glucose 153 H POC Glucose 156 H POC WB Ioniz Calcium 1.37 H Phosphorus Magnesium 2.6 H Lactate Dehydrogenase Troponin T NT-Pro-B Natriuret Pep 7549.0 H Albumin 2.8 L Globulin 5.3 H Albumin/Globulin Ratio 0.5 L Urine Protein Urine Occult Blood Urine RBC Urine Bacteria Hyaline Casts Meds: Medications Acetaminophen (Tylenol) 650 mg PO Q6HP PRN PRN Reason: PAIN/FEVER > 101 Albuterol/Ipratropium (Duoneb) 3 ml NEB Q6H [facility] Last Admin: 12/07/18 08:57 Dose: Not Given Documented by: Bisacodyl (Dulcolax) 10 mg IN HS [facility] Last Admin: 12/07/18 02:05 Dose: Not Given Documented by: Dextrose (Dextrose 50%) 0 ml IV UD PRN PRN Reason: Hypoglycemia Diagnostic Test (Pha) (Accu-Chek) 1 each FS ACHS [facility] Last Admin: 12/07/18 09:41 Dose: 1 each Documented by: Digoxin (Lanoxin) 125 mcg PO DAILY@1400 [place] Enoxaparin Sodium (Lovenox) 60 mg SQ DAILY [facility] Ferrous Sulfate (Ferrous Sulfate) 325 mg PO BIDCC [facility] Last Admin: 12/07/18 10:45 Dose: Not Given Documented by: Finasteride (Proscar) 5 mg PO DAILY [facility] Last Admin: 12/07/18 10:45 Dose: Not Given Documented by: Glucose (Insta-Glucose) 15 gm PO PRN PRN PRN Reason: Hypoglycemia Heparin Sodium (Porcine) (Heparin) 5,000 unit SQ Q12 [facility] Stop: 12/07/18 21:01 Last Admin: 12/07/18 09:43 Dose: 5,000 unit Documented by: Thiamine HCl 100 mg/ Sodium (Chloride) 51 mls @ 50 mls/hr IV DAILY [facility] Stop: 12/09/18 10:02 Last Admin: 12/07/18 02:06 Dose: 50 mls/hr Documented by: Piperacillin Sod/Tazobactam (Sod 2.25 gm/ Dextrose) 50 mls @ 100 mls/hr IV Q8H [facility] Last Admin: 12/07/18 09:26 Dose: 100 mls/hr Documented by: Sodium Chloride (Sodium Chloride 0.9%) 1,000 mls @ 75 mls/hr IV .[id number] [facility] Stop: 12/07/18 13:59 Last Admin: 12/07/18 02:09 Dose: 75 mls/hr Documented by: Vancomycin HCl 1,000 mg/ (Sodium Chloride) 250 mls @ 250 mls/hr IV Q24H [facility] Insulin Human Lispro (Humalog) 0 unit SQ ACHS [facility]; Protocol Last Admin: 12/07/18 09:41 Dose: Not Given Documented by: Iron Carb/Multivit/Tomball/Folic Acid (Multivitamin W/Minerals) 1 tab PO DAILY [facility] Last Admin: 12/07/18 10:45 Dose: Not Given Documented by: Naloxone HCl (Narcan) 0.1 mg IV Q2MIN PRN PRN Reason: Opiate Reversal Ondansetron HCl (Zofran) 4 mg IV Q4HP PRN PRN Reason: Nausea And Vomiting Oxycodone/Acetaminophen (Percocet 5-325 Mg) 1 tab PO Q4HP PRN PRN Reason: PAIN LEVEL 3-6 Polyethylene Glycol (Miralax) 17 gm PO DAILY [facility] Last Admin: 12/07/18 10:47 Dose: 17 gm Documented by: Simvastatin (Zocor) 20 mg PO [facility] Sodium Chloride (Saline Flush) 10 ml IV Q8 [facility] Last Admin: 12/07/18 07:23 Dose: 10 ml Documented by: Vancomycin HCl (Vancomycin Per Pharmacy) 1 order IV UD [facility] Medical - PN: A/P - Time Spent With Patient Total time spent is greater than 50% in coordination of care (as documented) at patient's floor/unit and/or counseling patient: - Narrative A/P Narrative: A/P Aspiration pneumonia -Chr aspirations, pt on thickned liquid, ST to evaluate -IV vancomycin and zosyn for now -monitor for response -pt/ POA does not want any aggressive interventions, -Lung mass -Pt has refused evaluation in the past, not sure even if malignancy, but overall prognosis has been quite poor -no interventions are planed Dementia -fairly advanced, bed bound status. Anemia -Hb 8.4 , due to chr infections, monitor for now Atrial fibrillation Rate stable, on digoxin and coumadin, not sure if able to swallow, switch to lovenox for now. DM glucose controlled SSI insulin for now OAB/BPH on oxybutynin and bph, d/c oxybutinin place montoya for now CKD Creat is stable at baseline Constipation -start on biscodyl IN< and miralax daily titrate bowel regime to response COPD chr emphysema, Bronchodilators q6hrs, no wheezing. DVT hep sq, INR is subtherapeutic DNR code status Dysphagia diet Overall prognosis is very poor, family wishes to treat this episode with antibiotics and see how he responds, no cpr, no intubatino, but bipap is ok. Daughter is agreeable to hospice, give overall poor quality of life, lung mass, recurrent infections and advanced dementia Medical - PN: Qual - VTE Deep Vein Thrombosis/Pulmonary Embolism Present on Admission: No
[2018-12-07] MEDS ORDERED: DIGOXIN 125 MCG TABLET PO SCH (14:00)
--- NOTE | 2018-12-07 15:39 | Death Note ---
Discharge Sum: Prov - Provider Patient information: Note initiated : 12/07/18 at 3:36 pm Service Date, if different from initiated Date: [] Patient: Tanvir Rubin 83 y/o M admitted on 12/07/18 for family thinks pnuemonia not better. Chief Complaint: [] Primary care physician: Sunny Nieves Admitting clinician: Brice Wade Consults: 12/06/18 Consult to Physician [CONS] Stat Comment: Consulting Provider: Brice Wade Reason For Exam: Physician to Consult Pronouncing clinician: Brice Waed Discharge Sum: Diag - PCOD Cause of : Pneumonia Discharge Sum: Summary - Date and Time Date of admission: 12/07/18 00:37 Date of : 12/07/18 Time of : 15:27 - Summary Details: Mr. Rubin is a 83 year old Male with h/o dementia, bed bound, right bka, presents to the ER today for evaluation of shortness of breath, altered mentation. The patient also has been constipatited The patient has advanced dementia history obtained from speaking to the daughter. Patient at baseline is bedbound, his lives with him, the patient is dependent on family for transfers. He eats a dysphagia diet. The patient presented to this hospital emergency room a few weeks ago, he was diagnosed with pneumonia and was transferred to [facility] for further management. The patient stayed there and then was discharged on oral antibiotics. According to the family the patient did not quite improve after antibiotic treatment from [facility], his mentation did not get back to baseline and over the last day his mentation had been abnormal, he is also been more short of breath. He was brought to the hospital therefore for further evaluation. On presentation to the hospital, patient was afebrile, heart rate is 94, blood pressure 160/85 but he was hypoxic, requiring 3 L of oxygen to maintain his oxygen saturation more than 90%. His labs showed a hemoglobin of 8.8, hemoglobin 11.4, platelets 448, INR was 1.6, lactic acid 1.2, sodium 140 potassium 5.1 chloride 99 bicarbonate 28 BUN 91 creatinine 2.3 glucose 153 calcium 10.2 magnesium 2.6 troponin 0 0.06 BNP 7549 albumin 2.8 per calcitonin 0.55 Patient is being admitted to the hospital for further management Chest CT was done which showed findings of severe chronic aspiration in the right middle lobe right lower lobe bronchi filled with material extending to the right mainstem bronchus there is associated right middle and lower lobe atelectasis 3.6 cm left paratracheal mass emphysema, cardiomegaly, 2/3 Patient seen and examined, clinically seems somewhat better today mental status is better. Patient is still not easy to understand. Labs are stable, WBC trending down. CT chest reviewed, enlarging endobronchial tumor, also lymph node compressing the esophagus. Reviewed the findings with family. I discussed with the daughter again regarding hospice placement, she is agreeable to hospice however there are some logistical barriers. She wants to continue antibiotics at this time. Case management involved, will see if we can sort out the issues. CT scan of the abdomen done a few weeks ago as well as a CT scan yesterday showed bilateral hydronephrosis, this was due to obstructive uropathy. Hawthorne has been placed. Around 3.15 it was noted that the patient was having agonal breathing, and became more bradycardic, the patient was placed on non rebreather, but had no respiratory drive, just taking agonal breaths, patient had asystole at 15.27. Pt was DNR with no aggressive interventions. Family informed Cause of -Aspiration Pneumonia -Lung Cancer - Additional Data Confirmation of as documented by pronouncing clinician: no pulse, no respirations, no heart sounds Family: at bedside Attending/PCP notified?: Yes Attending physician: Brice Wade Was code activated?: No Autopsy requested?: No
[2018-12-07] MEDS ORDERED: SIMVASTATIN 20 MG TABLET PO SCH (21:00)
[2018-12-08] MEDS ORDERED: VANCOMYCIN 1,000 MG in 0.9 % SODIUM CHLORIDE 250 ML IV SCH (09:00)
[2018-12-08] MEDS ORDERED: ENOXAPARIN 60 MG/0.6 ML SYRINGE SQ SCH (09:00)
== END 2018-12-07 15:27 | disposition expired | DRG 178 ==
LOC: ED 19:21 → ICU 12-07 00:37
PROVIDERS: ADMIT Internal Medicine; ATTEND Internal Medicine